=== PATIENT | male | born 1955 | race Hispanic/Latino ===

== ENCOUNTER 2018-03-31 16:07 | Inpatient (IN) | payer MEDICARE, MEDICAID ==
--- NOTE | 2018-03-31 17:29 | RAD ---
Date of service: 03/31/2018 HISTORY: chest pain COMPARISON: Chest radiograph dated 06/22/2015. FINDINGS: LUNGS: No active pulmonary disease. PLEURA: No significant pleural effusion identified, no pneumothorax apparent. CARDIOVASCULAR: Normal. OSSEOUS STRUCTURES: Unchanged. VISUALIZED UPPER ABDOMEN: Normal. OTHER FINDINGS: None. IMPRESSION: No active disease.
--- NOTE | 2018-03-31 17:32 | ED PDOC ---
HPI: Chest Pain Time Seen by Provider: 03/31/18 16:15 Chief Complaint (Nursing): Chest Pain Chief Complaint (Provider): Chest pain History Per: Patient History/Exam Limitations: no limitations Onset/Duration Of Symptoms: Days (1) Current Symptoms Are (Timing): Still Present Additional History Per: Patient Additional Complaint(s): 62yo male, with history of parkinsons disease, hypertnesion, diabetes, comes to ER with complaints of chest pain since last night. Patient denies any associated fever, chills, shortness of breath or vomiting. He is requesting to be admitted into the hospital. Otherwise, he offers no other medical complaints. PMD: Dr. Bond Past Medical History Reviewed: Historical Data, Nursing Documentation, Vital Signs Vital Signs: Last Vital Signs Temp 97.4 F L 04/09/18 15:43 Pulse 69 04/09/18 15:43 Resp 20 04/09/18 15:43 BP 142/85 04/09/18 15:43 Pulse Ox 100 04/09/18 15:43 - Medical History PMH: Asthma, Dementia, Depression, Diabetes, GERD, HTN, Hypercholesterolemia, Parkinson's Disease - Surgical History Surgical History: No Surg Hx - Family History Family History: States: Unknown Family Hx - Living Arrangements Living Arrangements: Prison/Assist Lvng - Home Medications Home Medications: Ambulatory Orders Medication Instructions Recorded Acetaminophen [Tylenol 325mg tab] 650 mg PO Q6 PRN 03/31/18 Acetaminophen [Tylenol 325mg tab] 650 mg PO Q6 PRN 03/31/18 Carbidopa/Levodopa 2 tab PO Q6 03/31/18 [Carbidopa-Levodopa 25-100 Tab] Carvedilol [Coreg] 12.5 mg PO Q12 03/31/18 DULoxetine [Cymbalta] 60 mg PO HS 03/31/18 Dicyclomine [Bentyl] 10 mg PO Q6 PRN 03/31/18 Econazole Nitrate 1 appl TOP QPM 03/31/18 Ferrous Sulfate 325 mg PO QPM 03/31/18 Gabapentin [Neurontin] 100 mg PO Q8 03/31/18 Insulin Glargine, Recombina 26 unit SC HS 03/31/18 [Lantus] Insulin Lispro [Humalog (Insulin 2 - 10 unit SC [facility] 03/31/18 Lispro)] Lactulose [Generlac] 30 ml PO BID 03/31/18 Lactulose [Generlac] 30 ml PO DAILY PRN 03/31/18 Linaclotide [Linzess] 290 mcg PO DAILY 03/31/18 Lisinopril [Zestril] 20 mg PO DAILY 03/31/18 Magnesium Hydroxide [Milk Of 30 ml PO Q72H PRN 03/31/18 Magnesia] Pantoprazole [Protonix EC Tab] 20 mg PO DAILY 03/31/18 Simvastatin 10 mg PO HS 03/31/18 cloNIDine [Catapres] 0.2 mg PO HS 03/31/18 levETIRAcetam [Keppra] 500 mg PO Q12 03/31/18 - Allergies Allergies/Adverse Reactions: Allergies Allergy/AdvReac Type Severity Reaction Status Date / Time No Known Allergies Allergy Verified 04/04/18 10:32 Review of Systems ROS Statement: Except As Marked, All Systems Reviewed And Found Negative Constitutional: Negative for: Fever, Chills Cardiovascular: Positive for: Chest Pain Respiratory: Negative for: Cough, Shortness of Breath Gastrointestinal: Negative for: Vomiting Physical Exam - Reviewed Nursing Documentation Reviewed: Yes Vital Signs Reviewed: Yes - Physical Exam Appears: Positive for: Non-toxic, No Acute Distress Head Exam: Positive for: ATRAUMATIC, NORMAL INSPECTION, NORMOCEPHALIC Skin: Positive for: Normal Color Eye Exam: Positive for: Normal appearance Neck: Positive for: Supple Cardiovascular/Chest: Positive for: Regular Rate, Rhythm, Chest Non Tender. Negative for: Murmur Respiratory: Positive for: Normal Breath Sounds. Negative for: Rales, Rhonchi, Wheezing Gastrointestinal/Abdominal: Positive for: Normal Exam, Soft. Negative for: Tenderness Back: Positive for: Normal Inspection Extremity: Positive for: Normal ROM. Negative for: Deformity Neurologic/Psych: Positive for: Alert, Oriented - Laboratory Results Result Diagrams: 04/08/18 04:20 04/09/18 09:40 - ECG ECG: Positive for: Interpreted By Me, Viewed By Me ECG Rhythm: Positive for: Sinus Rhythm, Right Bundle Branch Block (incomplete) Rate: 86 O2 Sat by Pulse Oximetry: 99 (O2 via NC) Pulse Ox Interpretation: Normal Medical Decision Making Medical Decision Making: Impression: Chest pain rule out cardiac arrythmia Plan: -- Labs -- EKG -- Chest x-ray Time: 1600 Patient noted to have elevated blood pressure of 190/101 and accucheck showed blood sugar > 400. Patient given Human insulin 10 units, labetalol and IV Fluids. Time: 172 Chest x-ray FINDINGS: LUNGS: No active pulmonary disease. PLEURA: No significant pleural effusion identified, no pneumothorax apparent. CARDIOVASCULAR: Normal. OSSEOUS STRUCTURES: Unchanged. VISUALIZED UPPER ABDOMEN: Normal. OTHER FINDINGS: None. IMPRESSION: No active disease. Time: 1913 Patient signed out to Dr. Atkins pending chemistry, reassessment. Scribe Attestation: Documented by Thelma Rendon, acting as a scribe for Da Vargas MD Provider Scribe Attestation: All medical record entries made by the Scribe were at my direction and personally dictated by me. I have reviewed the chart and agree that the record accurately reflects my personal performance of the history, physical exam, medical decision making, and the department course for this patient. I have also personally directed, reviewed, and agree with the discharge instructions and disposition. Disposition - Clinical Impression Clinical Impression: Chest pain, Hyperglycemia - Patient ED Disposition Is Patient to be Admitted: Transfer of Care Counseled Patient/Family Regarding: Studies Performed, Diagnosis - Disposition Disposition: Transfer of Care Disposition Time: 18:50 Condition: STABLE Patient Signed Over To: Checo Atkins Handoff Comments: Pending labs, reassessment
[2018-03-31] MEDS ORDERED: Sodium Chloride 0.9% 1,000 ML IV STA (17:59)
[2018-03-31] MEDS ORDERED: Insulin Regular 100 units/ml SC STA (18:00)
[2018-03-31] MEDS ORDERED: Labetalol 5 mg/ml Inj 20ML IVP STA (18:19)
[2018-03-31 18:31] LABS: BASO % 0.3 % (0.0-2.0); EOS # 0.1 K/uL (0.0-0.7); EOS % 2.2 % (0.0-4.0); HEMOGLOBIN 11.9 g/dL (12.0-18.0); LYMPH # 0.5 K/uL (1.0-4.3); LYMPH % 11.6 % (20.0-40.0); MEAN CELL VOLUME 94.9 fl (80.0-94.0); MEAN CORPUSCULAR HEMOGLOBIN 30.9 pg (27.0-31.0); MEAN CORPUSCULAR HGB CONC 32.6 g/dL (33.0-37.0); MEAN PLATELET VOLUME 10.4 fl (7.2-11.7); MONO # 0.3 K/uL (0.0-0.8); MONO % 7.7 % (0.0-10.0); NEUT # 3.4 K/uL (1.8-7.0); NEUT % 78.2 % (50.0-75.0); RBC 3.86 Mil/uL (4.40-5.90); RED CELL DISTRIBUTION WIDTH 14.5 % (11.5-14.5); WHITE BLOOD COUNT 4.4 K/uL (4.8-10.8)
[2018-03-31 18:51] LABS: TROPONIN I 0.014 ng/mL (0.00-0.120)
[2018-03-31 19:21] LABS: ALB/GLOB RATIO 1.1 (1.0-2.1); ALBUMIN 3.4 g/dL (3.5-5.0); CALCIUM 9.1 mg/dL (8.4-10.2)
--- NOTE | 2018-03-31 19:22 | ED PDOC ---
- Laboratory Results Result Diagrams: 04/01/18 08:27 04/01/18 08:27 - ECG O2 Sat by Pulse Oximetry: 99 (O2 via NC) Pulse Ox Interpretation: Normal Medical Decision Making Medical Decision Making: Time: 1899 Patient signed out to me by Dr. Vargas pending chemistry results, reassessment. Time: [address] Bond, patient to be admitted under his service for observation due to chest pain. Scribe Attestation: Documented by Thelma Rendon, acting as a scribe for Checo Atkins MD. Provider Scribe Attestation: All medical record entries made by the Scribe were at my direction and personally dictated by me. I have reviewed the chart and agree that the record accurately reflects my personal performance of the history, physical exam, medical decision making, and the department course for this patient. I have also personally directed, reviewed, and agree with the discharge instructions and disposition. Disposition - Clinical Impression Clinical Impression: Chest pain, Hyperglycemia - POA Present On Arrival: None - Disposition Disposition: Hospitalized as Observation Patient Disposition Time: 20:00 Condition: STABLE
[2018-03-31] MEDS ORDERED: Glucagon Recombinant 1 mg Inj IM PRN (23:43)
[2018-03-31] MEDS ORDERED: Alum-Mag Hydrox-Simethicone Susp (30 mL) PO ONE (23:45)
[2018-04-01] MEDS: Sodium Chloride 0.45% 1,000 ML IV SCH ×2 (00:43→19:50)
--- NOTE | 2018-04-01 07:57 | CP.PCM.CON ---
History of Present Illness - History of Present Illness History of Present Illness: Consultation for evaluation of chest pain HPI: Review of Systems - Review of Systems Systems not reviewed;Unavailable: Acuity of Condition - Constitutional Constitutional: As Per HPI - EENT Eyes: As Per HPI Ears: As Per HPI Nose/Mouth/Throat: As Per HPI - Cardiovascular Cardiovascular: As Per HPI - Respiratory Respiratory: As Per HPI - Gastrointestinal Gastrointestinal: As Per HPI - Genitourinary Genitourinary: As Per HPI - Reproductive: Male Reproductive:Male: As Per HPI - Musculoskeletal Musculoskeletal: As Per HPI - Integumentary Integumentary: As Per HPI - Neurological Neurological: As Per HPI - Psychiatric Psychiatric: As Per HPI - Endocrine Endocrine: As Per HPI - Hematologic/Lymphatic Hematologic: As Per HPI Past Patient History - Infectious Disease Hx of Infectious Diseases: None - Past Medical History & Family History Past Medical History?: Yes - Past Social History Smoking Status: Former Smoker - CARDIAC Hx Hypercholesterolemia: Yes Hx Hypertension: Yes - PULMONARY Hx Asthma: Yes - NEUROLOGICAL Hx Dementia: Yes Hx Parkinson's Disease: Yes - HEENT Hx HEENT Problems: No - RENAL Hx Renal Failure: Yes - ENDOCRINE/METABOLIC Hx Endocrine Disorders: Yes Hx Diabetes Mellitus Type 1: Yes - HEMATOLOGICAL/ONCOLOGICAL Hx Blood Disorders: No - INTEGUMENTARY Hx Dermatological Problems: No - MUSCULOSKELETAL/RHEUMATOLOGICAL Hx Musculoskeletal Disorders: No Hx Falls: No - GASTROINTESTINAL Hx Gastrointestinal Disorders: Yes Hx Clostridium Difficile: Yes - PSYCHIATRIC Hx Depression: Yes - SURGICAL HISTORY Hx Surgeries: No - ANESTHESIA Hx Anesthesia: No Meds Allergies/Adverse Reactions: Allergies Allergy/AdvReac Type Severity Reaction Status Date / Time No Known Allergies Allergy Verified 06/22/15 16:49 - Medications Medications: Current Medications Carvedilol (Coreg) 12.5 mg PO Q12 TREVOR Dextrose (Dextrose 50% Inj) 0 ml IV STAT PRN; Protocol PRN Reason: Hypoglycemia Protocol Dextrose (Glutose 15) 0 gm PO ONCE PRN; Protocol PRN Reason: Hypoglycemia Protocol Dicyclomine HCl (Bentyl) 20 mg PO ONCE ONE Stop: 04/01/18 23:47 Glucagon (Glucagen Diagnostic Kit) 0 mg IM STAT PRN; Protocol PRN Reason: Hypoglycemia Protocol Sodium Chloride (Sodium Chloride 0.45%) 1,000 mls @ 50 mls/hr IV .Q20H TREVOR Stop: 04/01/18 23:46 Last Admin: 04/01/18 00:43 Dose: 50 mls/hr Insulin Human Regular (Humulin R) 0 units SC ACHS TREVOR PRN Reason: Protocol Lisinopril (Zestril) 20 mg PO DAILY TREVOR Physical Exam - Constitutional Appears: Well - Head Exam Head Exam: ATRAUMATIC, NORMAL INSPECTION, NORMOCEPHALIC - Eye Exam Eye Exam: EOMI, Normal appearance, PERRL Pupil Exam: NORMAL ACCOMODATION, PERRL - ENT Exam ENT Exam: Mucous Membranes Moist, Normal Exam - Neck Exam Neck exam: Positive for: Normal Inspection - Respiratory Exam Respiratory Exam: Clear to Auscultation Bilateral, NORMAL BREATHING PATTERN - Cardiovascular Exam Cardiovascular Exam: REGULAR RHYTHM - GI/Abdominal Exam GI & Abdominal Exam: Normal Bowel Sounds, Soft. absent: Tenderness - Extremities Exam Extremities exam: Positive for: normal inspection - Back Exam Back exam: NORMAL INSPECTION - Neurological Exam Neurological exam: Alert, CN II-XII Intact, Normal Gait, Oriented x3, Reflexes Normal - Psychiatric Exam Psychiatric exam: Normal Affect, Normal Mood - Skin Skin Exam: Dry, Intact, Normal Color, Warm Results - Vital Signs Recent Vital Signs: Last Vital Signs Temp 98.4 F 04/01/18 04:45 Pulse 88 04/01/18 04:45 Resp 16 04/01/18 04:45 BP 166/94 H 04/01/18 04:45 Pulse Ox 99 04/01/18 04:45 - Labs Result Diagrams: 03/31/18 18:05 03/31/18 18:05 Labs: Laboratory Results - last 24 hr 03/31/18 03/31/18 04/01/18 18:05 18:05 00:30 WBC 4.4 L RBC 3.86 L Hgb 11.9 L Hct 36.6 MCV 94.9 H D MCH 30.9 MCHC 32.6 L RDW 14.5 Plt Count 133 MPV 10.4 Neut % (Auto) 78.2 H Lymph % (Auto) 11.6 L [place] % (Auto) 7.7 Eos % (Auto) 2.2 Baso % (Auto) 0.3 Neut # (Auto) 3.4 Lymph # (Auto) 0.5 L [place] # (Auto) 0.3 Eos # (Auto) 0.1 Baso # (Auto) 0.0 Sodium 136 Potassium 4.7 Chloride 99 Carbon Dioxide 27 Anion Gap 15 BUN 20 Creatinine 1.7 H Est GFR ( Amer) 50 Est GFR (Non-Af Amer) 41 POC Glucose (mg/dL) 324 H Random Glucose 471 H* Calcium 9.1 Total Bilirubin 0.6 AST 17 ALT 15 L D Alkaline Phosphatase 84 Troponin I 0.0140 Total Protein 6.5 Albumin 3.4 L D Globulin 3.1 Albumin/Globulin Ratio 1.1 Assessment & Plan (1) Chest pain Status: Acute
[2018-04-01 08:53] LABS: HEMOGLOBIN 12.1 g/dL (12.0-18.0); MEAN CELL VOLUME 94.5 fl (80.0-94.0); MEAN CORPUSCULAR HEMOGLOBIN 31.3 pg (27.0-31.0); MEAN CORPUSCULAR HGB CONC 33.1 g/dL (33.0-37.0); RBC 3.86 Mil/uL (4.40-5.90); RED CELL DISTRIBUTION WIDTH 14.6 % (11.5-14.5); WHITE BLOOD COUNT 5.2 K/uL (4.8-10.8)
[2018-04-01 08:57] LABS: PARTIAL THROMBOPLASTIN TIME 33.6 Seconds (25.6-37.1); PROTHROMBIN TIME 11.4 Seconds (9.8-13.1)
[2018-04-01 09:10] LABS: ALBUMIN 3.3 g/dL (3.5-5.0); CALCIUM 9.2 mg/dL (8.4-10.2)
[2018-04-01 09:15] LABS: TROPONIN I 0.019 ng/mL (0.00-0.120)
[2018-04-01] MEDS ORDERED: Insulin Regular 100 units/ml ONE (09:18)
[2018-04-01] MEDS: Insulin Regular 100 units/ml SC SCH ×4 (10:23→22:53)
--- NOTE | 2018-04-01 11:51 | CARD ---
APPROVED REPORT Date of service: 04/01/2018 EXAM: Two-dimensional and M-mode echocardiogram with Doppler and color Doppler. Other Information Quality : AverageRhythm : NSR Technically limited study due to lIMITED wINDOW INDICATION Chest Pain 2D DIMENSIONS IVSd0.97 (0.7-1.1cm)LVDd4.90 (3.9-5.9cm) LVOT Diameter2.35 (1.8-2.4cm)PWd1.05 (0.7-1.1cm) IVSs1.26 (0.8-1.2cm)LVDs3.71 (2.5-4.0cm) FS (%) 24.2 %PWs1.07 (0.8-1.2cm) M-Mode DIMENSIONS Left Atrium (MM)3.90 (2.5-4.0cm)IVSd1.09 (0.7-1.1cm) Aortic Root3.44 (2.2-3.7cm)LVDd6.52 (4.0-5.6cm) Aortic Cusp Exc.1.99 (1.5-2.0cm)PWd0.99 (0.7-1.1cm) IVSs1.56 cmFS (%) 29 % LVDs4.60 (2.0-3.8cm)PWs1.29 cm Mitral Valve E/A ratio0.0 TDI E/Lateral E'0.0E/Medial E'0.0 LEFT VENTRICLE The left ventricle is normal size. There is mild concentric left ventricular hypertrophy. The left ventricular function is normal. The left ventricular ejection fraction is within the normal range. LVEF65% (NORMAL) There is normal LV segmental wall motion. The left ventricular diastolic function is normal. No left ventricle thrombus noted on this study. There is no ventricular septal defect visualized. There is no left ventricular aneurysm. There is no mass noted in the left ventricle. RIGHT VENTRICLE The right ventricle is normal size. The right ventricle is mildly to moderately hypertrophied. The right ventricular systolic function is normal. ATRIA The left atrium size is normal. The right atrium size is normal. The interatrial septum is intact with no evidence for an atrial septal defect. AORTIC VALVE The aortic valve is normal in structure. No aortic regurgitation is present. There is no aortic valvular stenosis. There is no aortic valvular vegetation. MITRAL VALVE The mitral valve is normal in structure. There is no evidence of mitral valve prolapse. There is no mitral valve stenosis. There is no mitral valve regurgitation noted. TRICUSPID VALVE The tricuspid valve is normal in structure. There is trace to mild tricuspid regurgitation. There is no tricuspid valve prolapse or vegetation. There is no tricuspid valve stenosis. PULMONIC VALVE The pulmonary valve is normal in structure. There is no pulmonic valvular regurgitation. There is no pulmonic valvular stenosis. GREAT VESSELS The aortic root is normal in size. The IVC is normal in size and collapses >50% with inspiration. PERICARDIAL EFFUSION The pericardium appears normal. <Conclusion> The left ventricle is normal size. There is mild concentric left ventricular hypertrophy. The left ventricular function is normal. The left ventricular ejection fraction is within the normal range. LVEF65% (NORMAL) The right ventricle is mildly to moderately hypertrophied. The right ventricle is normal size.
[2018-04-01 15:41] LABS: SQUAMOUS EPITHIAL 2 /hpf (0-5); URINE BACTERIA MOD (<OCC); URINE BILIRUBIN NEGATIVE (NEGATIVE); URINE BLOOD SMALL (NEGATIVE); URINE CLARITY CLOUDY (Clear); URINE COLOR YELLOW (YELLOW); URINE GLUCOSE (UA) >=500 mg/dL (Normal); URINE LEUKOCYTE ESTERASE MOD Leu/uL (Negative); URINE PROTEIN >=500 mg/dL (NEGATIVE); URINE UROBILINOGEN 0.2-1.0 mg/dL (0.2-1.0)
[2018-04-02] MEDS: Insulin Regular 100 units/ml SC SCH ×4 (09:55→21:28)
[2018-04-02] MEDS ORDERED: Magnesium Hydroxide Susp 30 ml UD PO PRN (11:57)
[2018-04-02] MEDS ORDERED: Metoprolol 1 mg/ml Inj IVP STA (13:04)
[2018-04-02] MEDS ORDERED: Enoxaparin 30 mg Syringe SC SCH (13:15)
--- NOTE | 2018-04-02 13:19 | PCM.RRT ---
<Zach Zazueta - Last Filed: 04/02/18 13:47> REFINERY SUPERINTENDENT Nurse Assessment - Situation REFINERY SUPERINTENDENT Reason for Call: Chest Pain - IV IV Inserted during REFINERY SUPERINTENDENT?: No - Respiratory Oxygen Delivery Method: Nasal Cannula I.Reason for REFINERY SUPERINTENDENT - A) Acute Change in Patient: (Select all that apply): Staff member or family is worried about patient, Chest Pain Subjective: 62 Y/O male with PMHx of HTN, DM, hyperlipidemia, parkinson disease complaining of chest pain. REFINERY SUPERINTENDENT called. Vitals on arrival T 97.9, Pulse 82, BP 184/99, RR 18 , SpO2 100. Patient alert, responsive and pointing out to mid-sternal area for chest pain. Troponin, D Dimer, ABG and EKG ordered STAT. EKG showed t wave changes in V2, but no acute ST abnormality(compared with previous EKG). Patient given o2 via nasal cannula, ASA 81 chewable, Nitroglycerin 0.4 mg SL, Plavix 75 , metoprlol 5 mg IV stat, Atorvastatin 40 mg stat and started on lovenox 30 mg SC. Blood pressure improved to 160/90 with medications. Tried to call Dr. Melchor. Primary car seat coverer Dr. Del Rio consult onboard. Patient history reviewed. Previous Echo, labs reviewed. Patient to remain in Tele for monitoring. - Neurological Status (Select all that apply): Alert, Responsive, Oriented, Verbal, Weakness - Respiratory Oxygen Delivery Method: Nasal Cannula @L/min - Constitutional Appears: Well, Non-toxic, No Acute Distress - Head Head Exam: ATRAUMATIC, NORMAL INSPECTION, NORMOCEPHALIC - Eyes Eye Exam: EOMI, Normal appearance, PERRL - Respiratory Exam Respiratory Exam: Clear to Ausculation Bilateral, NORMAL BREATHING PATTERN. absent: Rales, Rhonchi, Wheezes, Respiratory Distress - Cardiovascular Exam Cardiovascular Exam: REGULAR RHYTHM, +S1, +S2. absent: Murmur - GI/Abdominal Exam GI & Abdominal Exam: Soft, Normal Bowel Sounds - Neurological Exam Neurological Exam: Alert, Awake Plan - Assessment of Findings&Treatment Plan 62 Y/O male with PMHx of HTN, DM, hyperlipidemia, parkinson disease complaining of chest pain. - Stat ASA 81 mg chewable, - Nitroglycerin 0.4 SL, - Plavix 75 mg IV, - Metoprlol 5 mg IV, - Atorvastatin 40 mg stat - Started on lovenox 30 mg SC - Improvement in BP to 160/90 - F/U Troponin x 1, D Dimer, ABG - Delivery Motorcycle Driver and fresh foods cake decorator called, but unable to contact at this time, will call again. - Continue to be in Tele for monitoring - Will monitor for acute changes <Lydia Gamble - Last Filed: 04/02/18 18:37> REFINERY SUPERINTENDENT Nurse Assessment - Vital Signs Vital Signs: Rapid Response Vital Sign Blood Pressure 169/99 Pulse Rate 89 Respiratory Rate 18 Temperature 97.9 F Oxygen Saturation 100 - Vital Signs at end of REFINERY SUPERINTENDENT Vital Signs at end of REFINERY SUPERINTENDENT: Rapid Response End Vital Sign Blood Pressure 161/90 Pulse Rate 89 Respiratory Rate 18 Temperature 97.8 F O2 Sat by Pulse Oximetry 100 Attending/Attestation - Attestation I have personally seen and examined this patient.: Yes I have fully participated in the care of the patient.: Yes I have reviewed all pertinent clinical information, including history, physical exam and plan: Yes Notes (Text): 1. Chest Pain r/o ACS 2. Uncontrolled HTN - Stat ASA, Plavix, given - increase Coreg to 25 mg bid - cont statin - NTG - Trop x 3, DDimer -start Lovenox for DVT proph - ABG Discussed case with Cardio - Dr Del Rio and pt's PMD Dr Melchor
[2018-04-02 13:29] LABS: ABG ALLEN TEST YES; ARTERIAL BLOOD GAS HCO3 24.9 mmol/L (21-28); ARTERIAL BLOOD GAS HEMOGLOBIN 13.1 g/dL (11.7-17.4); ARTERIAL BLOOD GAS O2 CONTENT 17.9 ML/dL (15-23); ARTERIAL BLOOD GAS O2 SAT 99.5 % (95-98); ARTERIAL BLOOD GAS PCO2 40 mm/Hg (35-45); ARTERIAL BLOOD GAS PO2 152 mm/Hg (80-100)
[2018-04-02] MEDS: Pantoprazole 20 mg EC Tab PO SCH (13:29)
--- NOTE | 2018-04-02 15:24 | CARD ---
APPROVED REPORT Date of service: 04/02/2018 EKG Measurement Heart [id number] <Conclusion> Normal sinus rhythm Left anterior fascicular block Septal infarct, age undetermined Abnormal ECG
[2018-04-02] MEDS: Alum-Mag Hydrox-Simethicone Susp (30 mL) PO PRN (15:45)
--- NOTE | 2018-04-02 17:14 | CP.PCM.HP ---
History of Present Illness - History of Present Illness History of Present Illness: CC: CP. 62 y/o M with multiple chronic medical conditions including: Asthma, HTN, Renal failure, Parkinson, resident at [facility], brought to ER [facility], via EMS for evaluation of Chest pain that began night [employer], increased 1 hr prior arrival to ER with no relief. Pt was c/o of Midsternal CP, pressure type, intermittent pain, moderate intensity 5:10, non radiated, associated to moderate SOB. Pt on Telemetry had SLEEVE FIXER for Chest Pain, Epigastric pain, discussed with Dr Gamble Worsening symptoms: Found with BS 487, BP 190/101. Aggravated factor: Movements/Exercise. No: Fever, chills, n/v/d, abdominal pain, syncope, fall, headache, sick contact. Echo showed: LVEF 65%, mild R-L ventricular hypertrophy, otherwise unremarkable. CXR: No active disease. Present on Admission - Present on Admission Any Indicators Present on Admission: Yes History of Uncontrolled Diabetes: Yes Review of Systems - Constitutional Constitutional: Other (negative) - EENT Eyes: Other (negative) Ears: Other (negative) Nose/Mouth/Throat: Other (negative) - Cardiovascular Cardiovascular: Chest Pain, Dyspnea - Respiratory Respiratory: Dyspnea - Gastrointestinal Gastrointestinal: Other (negative) - Genitourinary Genitourinary: Other (negative) - Musculoskeletal Musculoskeletal: Other (negative) - Integumentary Integumentary: Other (negative) - Neurological Neurological: Weakness, Other (Disoriented at times.) - Psychiatric Psychiatric: Anxiety, Depression - Endocrine Endocrine: Other (negative) - Hematologic/Lymphatic Hematologic: Other (negative) Past Patient History - Infectious Disease Hx of Infectious Diseases: None - Past Medical History & Family History Past Medical History?: Yes Pertinent Family History: Unknown - Past Social History Smoking Status: Unknown If Ever Smoked Alcohol: None Drugs: Denies Home Situation {Lives}: Custodial - CARDIAC Hx Cardiac Disorders: Yes Hx Hypercholesterolemia: Yes Hx Hypertension: Yes - PULMONARY Hx Respiratory Disorders: Yes Hx Asthma: Yes - NEUROLOGICAL Hx Neurological Disorder: Yes Hx Dementia: Yes Hx Parkinson's Disease: Yes Hx Seizures: Yes - HEENT Hx HEENT Problems: No - RENAL Hx Chronic Kidney Disease: Yes Hx Renal Failure: Yes - ENDOCRINE/METABOLIC Hx Endocrine Disorders: Yes Hx Diabetes Mellitus Type 1: Yes - HEMATOLOGICAL/ONCOLOGICAL Hx Blood Disorders: No - INTEGUMENTARY Hx Dermatological Problems: No - MUSCULOSKELETAL/RHEUMATOLOGICAL Hx Musculoskeletal Disorders: No Hx Falls: No - GASTROINTESTINAL Hx Gastrointestinal Disorders: Yes Hx Clostridium Difficile: Yes - GENITOURINARY/GYNECOLOGICAL Hx Genitourinary Disorders: No - PSYCHIATRIC Hx Psychophysiologic Disorder: Yes Hx Depression: Yes Hx Substance Use: No - SURGICAL HISTORY Hx Surgeries: No - ANESTHESIA Hx Anesthesia: No Meds Allergies/Adverse Reactions: Allergies Allergy/AdvReac Type Severity Reaction Status Date / Time No Known Allergies Allergy Verified 04/04/18 10:32 Physical Exam - Constitutional Appears: No Acute Distress - Head Exam Head Exam: NORMAL INSPECTION - Eye Exam Eye Exam: EOMI, PERRL - ENT Exam ENT Exam: Normal Exam - Neck Exam Neck exam: Positive for: Normal Inspection - Respiratory Exam Respiratory Exam: Clear to Auscultation Bilateral - Cardiovascular Exam Cardiovascular Exam: REGULAR RHYTHM - GI/Abdominal Exam GI & Abdominal Exam: Normal Bowel Sounds, Soft - Extremities Exam Extremities exam: Positive for: normal inspection - Back Exam Back exam: NORMAL INSPECTION - Neurological Exam Neurological exam: Alert Additional comments: slow mentation, forgetful cogwheel rigidity - Psychiatric Exam Psychiatric exam: Anxious, Depressed - Skin Skin Exam: Warm Results - Vital Signs Recent Vital Signs: Last Vital Signs Temp 99.7 F H 04/02/18 16:29 Pulse 85 04/02/18 16:29 Resp 20 04/02/18 16:29 BP 119/74 04/02/18 16:29 Pulse Ox 100 04/02/18 16:29 reviewed J.PDillan - Labs Result Diagrams: 04/03/18 05:30 04/03/18 05:30 Labs: Laboratory Results - last 24 hr 04/01/18 04/02/18 04/02/18 22:51 05:39 11:16 D-Dimer, Quantitative pCO2 pO2 HCO3 ABG pH ABG Total CO2 ABG O2 Saturation ABG O2 Content ABG Base Excess ABG Hemoglobin ABG Carboxyhemoglobin POC ABG HHb (Measured) ABG Methemoglobin ABG O2 Capacity Landon Test A-a O2 Difference Hgb O2 Saturation FiO2 POC Glucose (mg/dL) 147 H 202 H 242 H Troponin I 04/02/18 04/02/18 04/02/18 12:59 13:20 13:23 D-Dimer, Quantitative 299 H pCO2 40 pO2 152 H HCO3 24.9 ABG pH 7.40 ABG Total CO2 26.0 ABG O2 Saturation 99.5 H ABG O2 Content 17.9 ABG Base Excess 0 ABG Hemoglobin 13.1 ABG Carboxyhemoglobin 1.6 H POC ABG HHb (Measured) 0.5 ABG Methemoglobin 2.3 ABG O2 Capacity 18.0 Landon Test Yes A-a O2 Difference 26.0 Hgb O2 Saturation 95.6 FiO2 32.0 POC Glucose (mg/dL) Troponin I 0.0330 reviewed J.P. - Impressions Impression: ECHO: Reviewed J.P. - Imaging and Cardiology Chest x-ray Status: Report reviewed by me ([email or web address]) Assessment & Plan (1) Chest pain Status: Acute Priority: High (2) Hyperglycemia Status: Acute Priority: High (3) DM I (diabetes mellitus, type I) Status: Chronic Priority: High (4) HTN (hypertension) Status: Chronic Priority: High (5) Alzheimer disease Status: Chronic Priority: High (6) Dementia Status: Chronic Priority: Medium (7) Parkinsons Status: Acute (8) Seizure Status: Chronic (9) Anxiety Status: Acute Priority: Medium (10) Depression Status: Chronic Priority: High (11) UTI (urinary tract infection) Status: Acute - Assessment and Plan (Free Text) Plan: U C-S, Continue Rocephin Zestril, Humalin R, Cymbalta, Lovenox, Sinemet and rest of Tx. PT, OT. Cardiology consult appreciated, STT in am, GI consult , epigastric pain SLEEVE FIXER - Date & Time Date: 04/02/18 Time: 13:50
[2018-04-02] MEDS: Enoxaparin 40 mg Syringe SC SCH (18:26)
[2018-04-02] MEDS: Pravastatin Sodium 20 MG TAB PO SCH (21:24)
[2018-04-02] MEDS: Insulin Detemir 100 Units/ml Inj SC SCH (21:29)
[2018-04-03] MEDS ORDERED: Dextrose 50% SYRINGE Inj (50 ml) ONE (05:40)
[2018-04-03] MEDS: Dextrose 50% SYRINGE Inj (50 ml) IV PRN (05:50)
[2018-04-03 06:14] LABS: HEMOGLOBIN 10.6 g/dL (12.0-18.0); MEAN CELL VOLUME 93.9 fl (80.0-94.0); MEAN CORPUSCULAR HEMOGLOBIN 30.9 pg (27.0-31.0); MEAN CORPUSCULAR HGB CONC 32.9 g/dL (33.0-37.0); RBC 3.42 Mil/uL (4.40-5.90); RED CELL DISTRIBUTION WIDTH 14.9 % (11.5-14.5); WHITE BLOOD COUNT 4.8 K/uL (4.8-10.8)
[2018-04-03 06:49] LABS: CALCIUM 9.3 mg/dL (8.4-10.2)
[2018-04-03] MEDS: Insulin Regular 100 units/ml SC SCH ×4 (06:49→21:28)
--- NOTE | 2018-04-03 08:16 | CP.PCM.CON ---
History of Present Illness - History of Present Illness History of Present Illness: PGY5 GI Initial Consult Chapo Conde is a 62M w/ hx of parkinsons, HTN, HL who presented to the ED from [place] w/ complaints of chest pain. Pt states that the onset was sudden and started a few days ago. Though pt was alert and oriented x3, he was slightly confused so obtaining hx was difficult. Pt states that his pain was located on the left side of his chest and radiated to his left arm and jaw. He had an [employer] yesterday for chest pain. At that time, EKG, troponins and other cardiac work- up was performed. He was later given maalox and his pain improved. Upon further questioning from the [employer] team, he noted epigastric pain. At this time, he denies any abd pain or any hx of it. He states that his last BM was more than 3 days ago. Denies any hx of constipation. Denies any NSAID use, nausea, vomiting ot diarrhea. Pt notes an EGD and colonoscopy < 5 years ago, but does not recall any findings. Pmhx: Asthma, HTN, Renal failure, Parkinson PMShx: denies Social hx: Previous smoker 2-3 packs a day for 20+ years, quit >5 years ago, denies ETOH or illicit drug use Family hx: brother colon cancer ROS: 12 point OS conducted neg other than above Past Patient History - Infectious Disease Hx of Infectious Diseases: None - Past Medical History & Family History Past Medical History?: Yes - Past Social History Smoking Status: Unknown If Ever Smoked Alcohol: None Drugs: Denies Home Situation {Lives}: Longterm - CARDIAC Hx Cardiac Disorders: Yes Hx Hypercholesterolemia: Yes Hx Hypertension: Yes - PULMONARY Hx Respiratory Disorders: Yes Hx Asthma: Yes - NEUROLOGICAL Hx Neurological Disorder: Yes Hx Dementia: Yes Hx Parkinson's Disease: Yes Hx Seizures: Yes - HEENT Hx HEENT Problems: No - RENAL Hx Chronic Kidney Disease: Yes Hx Renal Failure: Yes - ENDOCRINE/METABOLIC Hx Endocrine Disorders: Yes Hx Diabetes Mellitus Type 1: Yes - HEMATOLOGICAL/ONCOLOGICAL Hx Blood Disorders: No - INTEGUMENTARY Hx Dermatological Problems: No - MUSCULOSKELETAL/RHEUMATOLOGICAL Hx Musculoskeletal Disorders: No Hx Falls: No - GASTROINTESTINAL Hx Gastrointestinal Disorders: Yes Hx Clostridium Difficile: Yes - GENITOURINARY/GYNECOLOGICAL Hx Genitourinary Disorders: No - PSYCHIATRIC Hx Psychophysiologic Disorder: Yes Hx Depression: Yes Hx Substance Use: No - SURGICAL HISTORY Hx Surgeries: No - ANESTHESIA Hx Anesthesia: No Meds Allergies/Adverse Reactions: Allergies Allergy/AdvReac Type Severity Reaction Status Date / Time No Known Allergies Allergy Verified 06/22/15 16:49 - Medications Medications: Current Medications Acetaminophen (Tylenol 325mg Tab) 650 mg PO Q6 PRN PRN Reason: Temp above 101 Acetaminophen (Tylenol 325mg Tab) 650 mg PO Q6 PRN PRN Reason: Pain, Mild (1-3) Al Hydrox/Mg Hydrox/Simethicone (Maalox Plus 30 Ml) 30 ml PO Q4 PRN PRN Reason: Indigestion / Heartburn Last Admin: 04/02/18 15:45 Dose: 30 ml Carbidopa/Levodopa (Sinemet) 2 tab PO Q6 [facility] Last Admin: 04/03/18 04:35 Dose: Not Given Carvedilol (Coreg) 25 mg PO Q12 [facility] Last Admin: 04/02/18 21:23 Dose: 25 mg Clonidine HCl (Catapres) 0.2 mg PO HS [facility] Last Admin: 04/02/18 21:24 Dose: 0.2 mg Dextrose (Dextrose 50% Inj) 0 ml IV STAT PRN; Protocol PRN Reason: Hypoglycemia Protocol Last Admin: 04/03/18 05:50 Dose: 50 ml Dextrose (Glutose 15) 0 gm PO ONCE PRN; Protocol PRN Reason: Hypoglycemia Protocol Dicyclomine HCl (Bentyl) 10 mg PO Q4 PRN PRN Reason: abdominal discomfort Last Admin: 04/02/18 15:45 Dose: 10 mg Duloxetine HCl (Cymbalta) 60 mg PO HS [facility] Last Admin: 04/02/18 21:24 Dose: 60 mg Enoxaparin Sodium (Lovenox) 40 mg SC DAILY [facility] Last Admin: 04/02/18 18:26 Dose: 40 mg Ferrous Sulfate (Feosol) 325 mg PO QPM [facility] Last Admin: 04/02/18 18:52 Dose: 325 mg Gabapentin (Neurontin) 100 mg PO Q8 [facility] Last Admin: 04/03/18 01:49 Dose: Not Given Glucagon (Glucagen Diagnostic Kit) 0 mg IM STAT PRN; Protocol PRN Reason: Hypoglycemia Protocol Ceftriaxone Sodium 1 gm/ (Sodium Chloride) 100 mls @ 100 mls/hr IVPB DAILY [facility] PRN Reason: Protocol Last Admin: 04/02/18 13:29 Dose: 100 mls/hr Insulin Detemir (Levemir) 26 units SC HS [facility] Last Admin: 04/02/18 21:29 Dose: 26 units Insulin Human Regular (Humulin R) 0 units SC [facility] PRN Reason: Protocol Last Admin: 04/03/18 06:49 Dose: Not Given Levetiracetam (Keppra) 500 mg PO Q12 [facility] Last Admin: 04/02/18 21:23 Dose: 500 mg Lisinopril (Zestril) 20 mg PO DAILY [facility] Last Admin: 04/02/18 09:54 Dose: 20 mg Magnesium Hydroxide (Milk Of Magnesia) 30 ml PO Q72H PRN PRN Reason: Constipation Pantoprazole Sodium (Protonix Ec Tab) 20 mg PO DAILY [facility] Last Admin: 04/02/18 13:29 Dose: 20 mg Pravastatin Sodium (Pravachol) [address] [facility] Last Admin: 04/02/18 21:24 Dose: 20 mg Physical Exam - Constitutional Appears: Well, No Acute Distress, Chronically Ill - Head Exam Head Exam: ATRAUMATIC, NORMOCEPHALIC - Eye Exam Eye Exam: Normal appearance - ENT Exam ENT Exam: Mucous Membranes Moist - Neck Exam Neck exam: Positive for: Normal Inspection - Respiratory Exam Respiratory Exam: Clear to Auscultation Bilateral, NORMAL BREATHING PATTERN. absent: Rales, Rhonchi, Wheezes, Respiratory Distress - Cardiovascular Exam Cardiovascular Exam: REGULAR RHYTHM, +S1, +S2 - GI/Abdominal Exam GI & Abdominal Exam: Normal Bowel Sounds, Organomegaly, Rigid, Soft, Tenderness - Extremities Exam Extremities exam: Negative for: joint swelling, pedal edema - Back Exam Back exam: NORMAL INSPECTION - Neurological Exam Neurological exam: Alert, Oriented x3 - Psychiatric Exam Psychiatric exam: Normal Affect, Normal Mood - Skin Skin Exam: Dry, Intact, Normal Color, Warm Results - Vital Signs Recent Vital Signs: Last Vital Signs Temp 97.4 F L 04/03/18 05:03 Pulse 58 L 04/03/18 05:03 Resp 18 04/03/18 05:03 BP 108/62 04/03/18 05:03 Pulse Ox 97 04/03/18 05:03 - Labs Result Diagrams: 04/03/18 05:30 07/26/18 05:30 Labs: Laboratory Results - last 24 hr 04/02/18 04/02/18 04/02/18 05:39 11:16 12:59 WBC RBC Hgb Hct MCV MCH MCHC RDW Plt Count D-Dimer, Quantitative pCO2 pO2 HCO3 ABG pH ABG Total CO2 ABG O2 Saturation ABG O2 Content ABG Base Excess ABG Hemoglobin ABG Carboxyhemoglobin POC ABG HHb (Measured) ABG Methemoglobin ABG O2 Capacity Landon Test A-a O2 Difference Hgb O2 Saturation FiO2 Sodium Potassium Chloride Carbon Dioxide Anion Gap BUN Creatinine Est GFR ( Amer) Est GFR (Non-Af Amer) POC Glucose (mg/dL) 202 H 242 H Random Glucose Calcium Troponin I 0.0330 04/02/18 04/02/18 04/02/18 13:20 13:23 16:04 WBC RBC Hgb Hct MCV MCH MCHC RDW Plt Count D-Dimer, Quantitative 299 H pCO2 40 pO2 152 H HCO3 24.9 ABG pH 7.40 ABG Total CO2 26.0 ABG O2 Saturation 99.5 H ABG O2 Content 17.9 ABG Base Excess 0 ABG Hemoglobin 13.1 ABG Carboxyhemoglobin 1.6 H POC ABG HHb (Measured) 0.5 ABG Methemoglobin 2.3 ABG O2 Capacity 18.0 Landon Test Yes A-a O2 Difference 26.0 Hgb O2 Saturation 95.6 FiO2 32.0 Sodium Potassium Chloride Carbon Dioxide Anion Gap BUN Creatinine Est GFR ( Amer) Est GFR (Non-Af Amer) POC Glucose (mg/dL) 257 H Random Glucose Calcium Troponin I 04/02/18 04/03/18 04/03/18 21:21 05:30 05:30 WBC 4.8 RBC 3.42 L Hgb 10.6 L Hct 32.1 L MCV 93.9 MCH 30.9 MCHC 32.9 L RDW 14.9 H Plt Count 131 D-Dimer, Quantitative pCO2 pO2 HCO3 ABG pH ABG Total CO2 ABG O2 Saturation ABG O2 Content ABG Base Excess ABG Hemoglobin ABG Carboxyhemoglobin POC ABG HHb (Measured) ABG Methemoglobin ABG O2 Capacity Landon Test A-a O2 Difference Hgb O2 Saturation FiO2 Sodium 138 Potassium 3.8 Chloride 102 Carbon Dioxide 29 Anion Gap 11 BUN 29 H Creatinine 2.3 H Est GFR ( Amer) 35 Est GFR (Non-Af Amer) 29 POC Glucose (mg/dL) 207 H Random Glucose 60 L Calcium 9.3 Troponin I 04/03/18 04/03/18 05:35 06:42 WBC RBC Hgb Hct MCV MCH MCHC RDW Plt Count D-Dimer, Quantitative pCO2 pO2 HCO3 ABG pH ABG Total CO2 ABG O2 Saturation ABG O2 Content ABG Base Excess ABG Hemoglobin ABG Carboxyhemoglobin POC ABG HHb (Measured) ABG Methemoglobin ABG O2 Capacity Landon Test A-a O2 Difference Hgb O2 Saturation FiO2 Sodium Potassium Chloride Carbon Dioxide Anion Gap BUN Creatinine Est GFR ( Amer) Est GFR (Non-Af Amer) POC Glucose (mg/dL) 45 L 168 H Random Glucose Calcium Troponin I Assessment & Plan - Assessment and Plan (Free Text) Assessment: Chapo Conde is a 62M w/ hx of parkinsons, HTN, HL who presented to the ER for chest pain Epigastric pain, etiology unknown, but resolved; DDx: gastritis, PUD, dyspepsia Acute constipation Family hx of colon cancer Chest pain, + stress test Plan: -Prontonix 40mg daily -diet as tolerated -No plan for endoscopy at this time -will add miralax for constipation -would benefit from EGD as an oupt -cardiac work-up in progress, + stress test -no indication to stop antiplatlet therapy, since h/h is stable and + stress test -continue to monitor -can use Maalox PRN for breakthrough symptoms -would benefit from EGD and colonoscopy as an outpt after cardiac w/u D/W Dr. Rojas
[2018-04-03] MEDS ORDERED: Aminophylline 25 mg/ml Inj ONE (09:22)
[2018-04-03] MEDS: Enoxaparin 40 mg Syringe SC SCH (11:34)
[2018-04-03] MEDS: Pantoprazole 20 mg EC Tab PO SCH (11:36)
--- NOTE | 2018-04-03 16:18 | CP.PCM.PN ---
Subjective - Date & Time of Evaluation Date of Evaluation: 04/03/18 Time of Evaluation: 12:30 - Subjective Subjective: F/U Chest pain. returned from STT, now awating for 2nd part of STT, awake , slow mentation , vague answers, no chest pain Objective - Vital Signs/Intake and Output Vital Signs (last 24 hours): Temp Pulse Resp BP Pulse Ox 97.5 F L 59 L 20 104/63 100 04/03/18 15:49 04/03/18 15:49 04/03/18 15:49 04/03/18 15:49 04/03/18 15:49 - Medications Medications: Current Medications Acetaminophen (Tylenol 325mg Tab) 650 mg PO Q6 PRN PRN Reason: Temp above 101 Acetaminophen (Tylenol 325mg Tab) 650 mg PO Q6 PRN PRN Reason: Pain, Mild (1-3) Al Hydrox/Mg Hydrox/Simethicone (Maalox Plus 30 Ml) 30 ml PO Q4 PRN PRN Reason: Indigestion / Heartburn Last Admin: 04/02/18 15:45 Dose: 30 ml Carbidopa/Levodopa (Sinemet) 2 tab PO Q6 [facility] Last Admin: 04/03/18 11:37 Dose: 2 tab Carvedilol (Coreg) 25 mg PO Q12 [facility] Last Admin: 04/03/18 11:33 Dose: Not Given Clonidine HCl (Catapres) 0.2 mg PO HS [facility] Last Admin: 04/02/18 21:24 Dose: 0.2 mg Dextrose (Dextrose 50% Inj) 0 ml IV STAT PRN; Protocol PRN Reason: Hypoglycemia Protocol Last Admin: 04/03/18 05:50 Dose: 50 ml Dextrose (Glutose 15) 0 gm PO ONCE PRN; Protocol PRN Reason: Hypoglycemia Protocol Dicyclomine HCl (Bentyl) 10 mg PO Q4 PRN PRN Reason: abdominal discomfort Last Admin: 04/02/18 15:45 Dose: 10 mg Duloxetine HCl (Cymbalta) 60 mg PO HS [facility] Last Admin: 04/02/18 21:24 Dose: 60 mg Enoxaparin Sodium (Lovenox) 40 mg SC DAILY [facility] Last Admin: 04/03/18 11:34 Dose: 40 mg Ferrous Sulfate (Feosol) 325 mg PO QPM [facility] Last Admin: 04/02/18 18:52 Dose: 325 mg Gabapentin (Neurontin) 100 mg PO Q8 [facility] Last Admin: 04/03/18 11:35 Dose: 100 mg Glucagon (Glucagen Diagnostic Kit) 0 mg IM STAT PRN; Protocol PRN Reason: Hypoglycemia Protocol Ceftriaxone Sodium 1 gm/ (Sodium Chloride) 100 mls @ 100 mls/hr IVPB DAILY [facility] PRN Reason: Protocol Last Admin: 04/03/18 11:36 Dose: 100 mls/hr Insulin Detemir (Levemir) 26 units SC [facility] Last Admin: 04/02/18 21:29 Dose: 26 units Insulin Human Regular (Humulin R) 0 units SC [facility] PRN Reason: Protocol Last Admin: 04/03/18 11:43 Dose: Not Given Levetiracetam (Keppra) 500 mg PO Q12 [facility] Last Admin: 04/03/18 11:34 Dose: 500 mg Lisinopril (Zestril) 20 mg PO DAILY [facility] Last Admin: 04/03/18 11:37 Dose: Not Given Magnesium Hydroxide (Milk Of Magnesia) 30 ml PO Q72H PRN PRN Reason: Constipation Pantoprazole Sodium (Protonix Ec Tab) 20 mg PO DAILY [facility] Last Admin: 04/03/18 11:36 Dose: 20 mg Polyethylene Glycol (Miralax) 17 gm PO DAILY [facility] Pravastatin Sodium (Pravachol) 20 mg PO [facility] Last Admin: 04/02/18 21:24 Dose: 20 mg - Labs Labs: 04/03/18 05:30 04/03/18 05:30 PT 11.4 Seconds (9.8-13.1) 04/01/18 08:27 INR 1.0 (0.9-1.2) 04/01/18 08:27 APTT 33.6 Seconds (25.6-37.1) 04/01/18 08:27 - Constitutional Appears: No Acute Distress - Head Exam Head Exam: NORMAL INSPECTION - Eye Exam Eye Exam: PERRL - ENT Exam ENT Exam: Normal Exam - Neck Exam Neck Exam: Normal Inspection - Respiratory Exam Respiratory Exam: Clear to Ausculation Bilateral - Cardiovascular Exam Cardiovascular Exam: REGULAR RHYTHM - GI/Abdominal Exam GI & Abdominal Exam: Soft, Normal Bowel Sounds - Extremities Exam Extremities Exam: Normal Inspection - Back Exam Back Exam: NORMAL INSPECTION - Neurological Exam Neurological Exam: Alert Additional comments: Slow mentation, cogwheel rigidity, mild tremor U/E - Psychiatric Exam Psychiatric exam: Anxious, Depressed - Skin Skin Exam: Warm Assessment and Plan (1) Chest pain Status: Acute (2) Hyperglycemia Status: Acute (3) DM I (diabetes mellitus, type I) Status: Chronic (4) HTN (hypertension) Status: Chronic (5) Alzheimer disease Status: Chronic (6) Dementia Status: Chronic (7) Parkinsons Status: Acute (8) Seizure Status: Chronic (9) Anxiety Status: Acute (10) Depression Status: Chronic - Assessment and Plan (Free Text) Plan: 1st part of STT (pos) , awaiting 2nd part, [employer] Department Supervisor planning Cardiac Cath, continue Rocephin UTI E Coli, Sinemet, Neurontin, Keppra , Insulin and rest of treatment.
--- NOTE | 2018-04-03 17:03 | CARD ---
APPROVED REPORT Date of service: 04/01/2018 Protocol: LEXISCAN Test Type: LEXISCAN Medications: Carvedilol 12.5mg, Dicyclomine 20mg, Insulin, Lisinpril 20mg. Medical History: DIABETIC, ASTHMA, DEMENTIA, DEPRESSION, GERD, HTN, HYPERCHOLESTEROLEROLEMIA, PARKINSON'S DISEASE Target HR: 158 bpm Resting ECG: abnormal Resting Heart Rate: 68 bpm Resting Blood Pressure: 142/57mmHg submaximum (85%): 134 bpm TEST SUMMARY [id number]. [id number]. INJECTIONNS [id number]. INJECTIONNUC [id number]. [id number]. PROCEDURE Pharmacologic stress testing was performed using 0.4mg per 5ml of regadenoson given intravenously over 7-10 seconds. POST EXERCISE Reason for Termination: Patient unable to walk on treadmill Target HR: No Max HR: 78 bpm 59% of Maximum Predicted HR: 158 bpm Exercise duration: 01:00 min:sec, 0 Stage Exercise capacity: 1.0METs Max Blood Pressure: 142/57mmHg Blood Pressure response to exercise: normal resting BP - blunted response Heart Rate response to exercise: appropriate Chest Pain: No, none Angina index: 0 Arrhythmia: No, none ST Change: Yes, Depression horizontal Deviation: 0 mm Clinical Indications Under Appropriate Use Criteria Medical history: 62 years old male is refer for nuclear stress test due to chest pain at rest. Patient developed resting chest pressure while hospitalized at [facility]. Patient has history of Parkinson disease. Stress EKG Interpretation Stress test showed st depression on II, III and AVF at exercises. No chest pain was reported Technologist Notes 1. The patient tolerated well the procedure. No chest pain was reported but he dropped his blood pressure from 140/76 to 92/60. The blood pressure returned to normal after a few minutes of finishing the test. 2. Pateint nuclear images were of good quality EXAM: Myocardial Perfusion REST/STRESS Image QualityGOOD Imaging Protocol The imaging protocol used to acquire images was Rest Tc-99m/stress Tc-99m 1 day Rest Spect myocardial perfusion imaging was performed in supine position 30 minutes following the injection of 10 mCi of Tc-99 Myoview. Time of rest injection: 7:33 Time of rest imagin:05 At peak stress, the patient was injected intravenously with 30mCi of Tc-99 tetrofosmin after an infusion time of minutes and seconds. Time of stress injection: 9:51 Time of stress imagin:00 Gated Stress Spect was performed 180 minutes after intravenous Tc-99 MyoviewTc-99 SestamibiTc-99 Myoview injection. The images were gated to evaluate regional wall motion and calculate ventricular ejection fraction. NUCLEAR IMAGE INTERPRETATION The rest and stress images show normal perfusion, normal contraction and thickening. LV Perfusion There was no significant perfusion defect both at rest and post activities Final result: Abnormal stress test with st depression on the inferior leads and T wave inversion on the lateral leads. No evidence of Myocardial perfusion defect on the nuclear images. LV Perfusion 1 The rest and stress images show normal perfusion. Wall Motion Normal motion and normal ejection fraction of the left ventricle. CONCLUSION 1. Abnormal stress test with st changes horizontal in configiuration affecting the inferior leads II, III and AVF and T waves inversion on the lateral leads of the electrocardiogram 2. Hypotension after injection of the Lexican contrast which reversed after a few mintues of termination of the test. 3. No evidence of perfusion defect both at rest or post exercises.
[2018-04-03] MEDS: POLYETHYLENE GLYCOL 3350 17 GM/Dose PACKET PO SCH (17:34)
[2018-04-03] MEDS ORDERED: Nitroglycerin 2% Ointment Foilpak UD TOP STA (18:31)
[2018-04-03] MEDS: Nitroglycerin 2% Ointment Foilpak UD TOP SCH (18:54)
[2018-04-03] MEDS: Pravastatin Sodium 20 MG TAB PO SCH (21:25)
[2018-04-03] MEDS: Insulin Detemir 100 Units/ml Inj SC SCH (21:29)
[2018-04-04] MEDS: Nitroglycerin 2% Ointment Foilpak UD TOP SCH ×4 (01:00→17:00)
[2018-04-04] MEDS: Insulin Regular 100 units/ml SC SCH ×4 (08:49→22:08)
[2018-04-04] MEDS: Enoxaparin 40 mg Syringe SC SCH (08:50)
[2018-04-04] MEDS: Pantoprazole 20 mg EC Tab PO SCH (09:24)
[2018-04-04] MEDS: POLYETHYLENE GLYCOL 3350 17 GM/Dose PACKET PO SCH (09:24)
[2018-04-04] MEDS ORDERED: Dextrose 50% SYRINGE Inj (50 ml) IVP STA ×2 (09:57→10:02)
[2018-04-04] MEDS ORDERED: Dextrose 5%/0.45% NS 1,000 ML IV SCH (10:15)
--- NOTE | 2018-04-04 10:17 | PCM.RRT ---
LPN PR[employer] D[employer] Nurse Assessment - Situation LPN PRIVATE DUTY Reason for Call: Change in Mental Status - IV IV Inserted during LPN PR[employer] DUTY?: No New IV Insertion Tolerance:: Good - Respiratory Oxygen Delivery Method: Nasal Cannula - Medication Medications Administered During LPN PR[employer] DUTY: 13:07 Lopressor 5 mg IV p. 13:06 Nitroglycerine 1/150 sublingual. 13:10 Plavix 75 mg po - Diagnostic Test Ordered EKG: Yes Chest X-Ray: No CT Scan: No - Stat Labs Ordered LPN PR[employer] D[employer] Stat Labs Ordered: TROPONIN CPR started during LPN PRIVATE DUTY?: No - Vital Signs Vital Signs: Rapid Response Vital Sign Blood Pressure 169/99 Pulse Rate 89 Respiratory Rate 18 Temperature 97.9 F Oxygen Saturation 100 - Time LPN PR[employer] D[employer] Ended Time LPN PR[employer] D[employer] Ended: 13:15 - Vital Signs at end of LPN PRIVATE DUTY Vital Signs at end of LPN PRIVATE DUTY: Rapid Response End Vital Sign Blood Pressure 161/90 Pulse Rate 89 Respiratory Rate 18 Temperature 97.8 F O2 Sat by Pulse Oximetry 100 - Recommendations LPN PR[employer] DUTY Level of Care Recommendations: Remain in current setting - Respiratory Oxygen Delivery Method: Nasal Cannula @L/min
--- NOTE | 2018-04-04 13:38 | CP.PCM.PN ---
Objective - Vital Signs/Intake and Output Vital Signs (last 24 hours): Temp Pulse Resp BP Pulse Ox 97.5 F L 50 L 18 105/64 100 04/04/18 08:04 04/04/18 08:44 04/04/18 08:04 04/04/18 08:44 04/04/18 08:04 - Medications Medications: Current Medications Acetaminophen (Tylenol 325mg Tab) 650 mg PO Q6 PRN PRN Reason: Temp above 101 Acetaminophen (Tylenol 325mg Tab) 650 mg PO Q6 PRN PRN Reason: Pain, Mild (1-3) Al Hydrox/Mg Hydrox/Simethicone (Maalox Plus 30 Ml) 30 ml PO Q4 PRN PRN Reason: Indigestion / Heartburn Last Admin: 04/02/18 15:45 Dose: 30 ml Carbidopa/Levodopa (Sinemet) 2 tab PO Q6 [facility] Last Admin: 04/04/18 09:27 Dose: Not Given Carvedilol (Coreg) 25 mg PO Q12 [facility] Last Admin: 04/04/18 08:44 Dose: Not Given Clonidine HCl (Catapres) 0.2 mg PO HS [facility] Last Admin: 04/03/18 21:22 Dose: 0.2 mg Dextrose (Dextrose 50% Inj) 0 ml IV STAT PRN; Protocol PRN Reason: Hypoglycemia Protocol Last Admin: 04/03/18 05:50 Dose: 50 ml Dextrose (Glutose 15) 0 gm PO ONCE PRN; Protocol PRN Reason: Hypoglycemia Protocol Dicyclomine HCl (Bentyl) 10 mg PO Q4 PRN PRN Reason: abdominal discomfort Last Admin: 04/02/18 15:45 Dose: 10 mg Duloxetine HCl (Cymbalta) 60 mg PO HS [facility] Last Admin: 04/03/18 21:22 Dose: 60 mg Enoxaparin Sodium (Lovenox) 40 mg SC DAILY [facility] Last Admin: 04/04/18 08:50 Dose: Not Given Ferrous Sulfate (Feosol) 325 mg PO QPM [facility] Last Admin: 04/03/18 17:32 Dose: 325 mg Gabapentin (Neurontin) 100 mg PO Q8 [facility] Last Admin: 04/04/18 09:24 Dose: Not Given Glucagon (Glucagen Diagnostic Kit) 0 mg IM STAT PRN; Protocol PRN Reason: Hypoglycemia Protocol Ceftriaxone Sodium 1 gm/ (Sodium Chloride) 100 mls @ 100 mls/hr IVPB DAILY [facility] PRN Reason: Protocol Last Admin: 04/03/18 11:36 Dose: 100 mls/hr Dextrose/Sodium Chloride (Dextrose 5%/0.45% Ns 1000 Ml) 1,000 mls @ 100 mls/hr IV .Q10H [facility] Stop: 04/05/18 10:03 Insulin Detemir (Levemir) 26 units SC HS [facility] Last Admin: 04/03/18 21:29 Dose: 26 units Insulin Human Regular (Humulin R) 0 units SC ACHS [facility] PRN Reason: Protocol Last Admin: 04/04/18 11:30 Dose: Not Given Levetiracetam (Keppra) 500 mg PO Q12 [facility] Last Admin: 04/04/18 08:48 Dose: 500 mg Lisinopril (Zestril) 20 mg PO DAILY [facility] Last Admin: 04/04/18 09:00 Dose: Not Given Magnesium Hydroxide (Milk Of Magnesia) 30 ml PO Q72H PRN PRN Reason: Constipation Nitroglycerin (Nitro-Bid 2% Oint) 1 ea TOP Q6H [facility] Last Admin: 04/04/18 13:04 Dose: Not Given Pantoprazole Sodium (Protonix Ec Tab) 20 mg PO DAILY [facility] Last Admin: 04/04/18 09:24 Dose: Not Given Polyethylene Glycol (Miralax) 17 gm PO DAILY [facility] Last Admin: 04/04/18 09:24 Dose: Not Given Pravastatin Sodium (Pravachol) 20 mg PO [facility] Last Admin: 04/03/18 21:25 Dose: 20 mg - Labs Labs: 04/03/18 05:30 04/03/18 05:30 PT 11.4 Seconds (9.8-13.1) 04/01/18 08:27 INR 1.0 (0.9-1.2) 04/01/18 08:27 APTT 33.6 Seconds (25.6-37.1) 04/01/18 08:27 Assessment and Plan (1) Chest pain Status: Acute
--- NOTE | 2018-04-04 17:59 | CP.PCM.PN ---
Subjective - Date & Time of Evaluation Date of Evaluation: 04/04/18 Time of Evaluation: 15:30 - Subjective Subjective: F/U Chest pain. Patient developed hypoglycemia prior to Cardiac Cath , procedure was cancelled and Patient was transferred back, to [facility] Telemetry, Patient awake, denies C/P , SOB, Patient's family at bedside Objective - Vital Signs/Intake and Output Vital Signs (last 24 hours): Temp Pulse Resp BP Pulse Ox 97.5 F L 73 20 153/83 H 94 L 04/04/18 15:54 04/04/18 15:54 04/04/18 15:54 04/04/18 15:54 04/04/18 15:54 - Medications Medications: Current Medications Acetaminophen (Tylenol 325mg Tab) 650 mg PO Q6 PRN PRN Reason: Temp above 101 Acetaminophen (Tylenol 325mg Tab) 650 mg PO Q6 PRN PRN Reason: Pain, Mild (1-3) Al Hydrox/Mg Hydrox/Simethicone (Maalox Plus 30 Ml) 30 ml PO Q4 PRN PRN Reason: Indigestion / Heartburn Last Admin: 04/02/18 15:45 Dose: 30 ml Carbidopa/Levodopa (Sinemet) 2 tab PO Q6 [facility] Last Admin: 04/04/18 17:25 Dose: 2 tab Carvedilol (Coreg) 25 mg PO Q12 [facility] Last Admin: 04/04/18 08:44 Dose: Not Given Clonidine HCl (Catapres) 0.2 mg PO HS [facility] Last Admin: 04/03/18 21:22 Dose: 0.2 mg Dextrose (Dextrose 50% Inj) 0 ml IV STAT PRN; Protocol PRN Reason: Hypoglycemia Protocol Last Admin: 04/03/18 05:50 Dose: 50 ml Dextrose (Glutose 15) 0 gm PO ONCE PRN; Protocol PRN Reason: Hypoglycemia Protocol Dicyclomine HCl (Bentyl) 10 mg PO Q4 PRN PRN Reason: abdominal discomfort Last Admin: 04/02/18 15:45 Dose: 10 mg Duloxetine HCl (Cymbalta) 60 mg PO HS [facility] Last Admin: 04/03/18 21:22 Dose: 60 mg Enoxaparin Sodium (Lovenox) 40 mg SC DAILY [facility] Last Admin: 04/04/18 08:50 Dose: Not Given Ferrous Sulfate (Feosol) 325 mg PO QPM [facility] Last Admin: 04/04/18 17:23 Dose: 325 mg Gabapentin (Neurontin) 100 mg PO Q8 [facility] Last Admin: 04/04/18 17:23 Dose: 100 mg Glucagon (Glucagen Diagnostic Kit) 0 mg IM STAT PRN; Protocol PRN Reason: Hypoglycemia Protocol Ceftriaxone Sodium 1 gm/ (Sodium Chloride) 100 mls @ 100 mls/hr IVPB DAILY [facility] PRN Reason: Protocol Last Admin: 04/04/18 17:20 Dose: 100 mls/hr Insulin Detemir (Levemir) 26 units SC HS [facility] Last Admin: 04/03/18 21:29 Dose: 26 units Insulin Human Regular (Humulin R) 0 units SC ACHS [facility] PRN Reason: Protocol Last Admin: 04/04/18 17:24 Dose: 6 units Levetiracetam (Keppra) 500 mg PO Q12 [facility] Last Admin: 04/04/18 08:48 Dose: 500 mg Lisinopril (Zestril) 20 mg PO DAILY [facility] Last Admin: 04/04/18 09:00 Dose: Not Given Magnesium Hydroxide (Milk Of Magnesia) 30 ml PO Q72H PRN PRN Reason: Constipation Nitroglycerin (Nitro-Bid 2% Oint) 1 ea TOP Q6H [facility] Last Admin: 04/04/18 13:04 Dose: Not Given Pantoprazole Sodium (Protonix Ec Tab) 20 mg PO DAILY [facility] Last Admin: 04/04/18 09:24 Dose: Not Given Polyethylene Glycol (Miralax) 17 gm PO DAILY [facility] Last Admin: 04/04/18 09:24 Dose: Not Given Pravastatin Sodium (Pravachol) 20 mg PO HS [facility] Last Admin: 04/03/18 21:25 Dose: 20 mg - Labs Labs: 04/03/18 05:30 04/03/18 05:30 PT 11.4 Seconds (9.8-13.1) 04/01/18 08:27 INR 1.0 (0.9-1.2) 04/01/18 08:27 APTT 33.6 Seconds (25.6-37.1) 04/01/18 08:27 - Constitutional Appears: Chronically Ill - Head Exam Head Exam: NORMAL INSPECTION - Eye Exam Eye Exam: PERRL - ENT Exam ENT Exam: Normal Exam - Neck Exam Neck Exam: Normal Inspection - Respiratory Exam Respiratory Exam: Clear to Ausculation Bilateral - Cardiovascular Exam Cardiovascular Exam: REGULAR RHYTHM - GI/Abdominal Exam GI & Abdominal Exam: Soft, Normal Bowel Sounds - Extremities Exam Extremities Exam: Normal Inspection - Back Exam Back Exam: NORMAL INSPECTION - Neurological Exam Neurological Exam: Awake Additional comments: answer simple questions , at times vague answers , cogwheel rigidity, mild tremor U/E - Psychiatric Exam Psychiatric exam: Anxious - Skin Skin Exam: Warm Assessment and Plan (1) Chest pain Status: Acute (2) Hyperglycemia Status: Acute (3) DM I (diabetes mellitus, type I) Status: Chronic (4) HTN (hypertension) Status: Chronic (5) Alzheimer disease Status: Chronic (6) Dementia Status: Chronic (7) Parkinsons Status: Acute (8) Seizure Status: Chronic (9) Anxiety Status: Acute (10) Depression Status: Chronic (11) UTI (urinary tract infection) Status: Acute - Assessment and Plan (Free Text) Plan: continue Rocephin, Catapres, Zestril, Sinemet, BS control
[2018-04-04] MEDS ORDERED: Sodium Chloride 0.45% 1,000 ML IV SCH (18:00)
[2018-04-04] MEDS: Pravastatin Sodium 20 MG TAB PO SCH (21:12)
[2018-04-04] MEDS: Insulin Detemir 100 Units/ml Inj SC SCH (22:09)
[2018-04-05] MEDS: Nitroglycerin 2% Ointment Foilpak UD TOP SCH ×4 (01:28→22:03)
[2018-04-05] MEDS ORDERED: Dextrose 50% SYRINGE Inj (50 ml) IVP STA (04:11)
[2018-04-05] MEDS ORDERED: Dextrose 5%/0.45% NS 1,000 ML IV SCH (06:00)
[2018-04-05] MEDS ORDERED: Sodium Chloride 23.4% 20 MEQ in Dextrose 10% In Water 500 ML IV SCH (09:00)
--- NOTE | 2018-04-05 09:11 | PCM.RRT ---
<Shireen Wiseman - Last Filed: 04/05/18 09:35> MINE CAPTAIN Nurse Assessment - Situation MINE CAPTAIN Responder Arrival Time: 08:47 Location: [address] [place] [address] [employer]INE CAPTAIN Reason for Call: Looks Sicker (62 Y/O male with PMHx of HTN, DM, hyperlipidemia, parkinson disease was found to be actively seizing. Ativan 2mg IVP given. Seizures stopped, patient was responsive, and coherent. Glucose was found to be 33. D5 was changed to D10. Last dose of Levimir was given last night. Levimir will be d'cd. Regular insulin will be changed to lispro because creatinine is 2.3. Telemetry will be continued, will continue to observe patient. ) MINE CAPTAIN Called By: RN - IV IV Inserted during MINE CAPTAIN?: No New IV Insertion Tolerance:: Good - Respiratory Oxygen Delivery Method: Room Air Received Nebulizer Treatments: No Was the Patient Ventilated with Bag/Mask 100% O2?: No Secretions Suctioned?: No Was the Patient Intubated?: No Was the Patient Placed on a Ventilator?: No - Medication Medications Administered During MINE CAPTAIN: 13:07 Lopressor 5 mg IV p. 13:06 Nitroglycerine 1/150 sublingual. 13:10 Plavix 75 mg po - Diagnostic Test Ordered EKG: No Chest X-Ray: No CT Scan: No - Stat Labs Ordered MINE CAPTAIN Other Labs Ordered: none CPR started during MINE CAPTAIN?: No - Vital Signs Vital Signs: Rapid Response Vital Sign Blood Pressure 137/79 Pulse Rate 74 Respiratory Rate 14 Temperature 98.6 F Oxygen Saturation 100 - [place] Coma Scale Coma Scale Eye Opening: Spontaneous Coma Scale Verbal: Oriented - Time MINE CAPTAIN Ended Time MINE CAPTAIN Ended: 09:09 - Vital Signs at end of MINE CAPTAIN Vital Signs at end of MINE CAPTAIN: Rapid Response End Vital Sign Blood Pressure 137/79 Pulse Rate 74 Respiratory Rate 14 Temperature 98.6 F O2 Sat by Pulse Oximetry 100 - Recommendations MINE CAPTAIN Level of Care Recommendations: Remain in current setting Notifications: Attending Physician - Respiratory Oxygen Delivery Method: Nasal Cannula @L/min <Lydia Gamble - Last Filed: 04/05/18 16:41> MINE CAPTAIN Nurse Assessment - Vital Signs Vital Signs: Rapid Response Vital Sign Blood Pressure 135/70 Pulse Rate 73 Respiratory Rate 20 Temperature 97.9 F Oxygen Saturation 100 - Vital Signs at end of MINE CAPTAIN Vital Signs at end of MINE CAPTAIN: Rapid Response End Vital Sign Blood Pressure 139/71 Pulse Rate 69 Respiratory Rate 17 Temperature 97.8 F O2 Sat by Pulse Oximetry 100 Attending/Attestation - Attestation I have personally seen and examined this patient.: Yes I have fully participated in the care of the patient.: Yes I have reviewed all pertinent clinical information, including history, physical exam and plan: Yes Notes (Text): Seizure sec to Hypoglycemia - D 50 IV given 1 amp - start D10 - Hold insulin and all hypoglycemics - Pt's PMD - Dr Bond informed of event
[2018-04-05] MEDS: Dextrose 50% SYRINGE Inj (50 ml) IV PRN (09:24)
[2018-04-05] MEDS: POLYETHYLENE GLYCOL 3350 17 GM/Dose PACKET PO SCH (09:28)
[2018-04-05] MEDS: Pantoprazole 20 mg EC Tab PO SCH (09:28)
[2018-04-05] MEDS: Enoxaparin 40 mg Syringe SC SCH (09:33)
[2018-04-05] MEDS ORDERED: DEXTROSE 10% IV SCH (09:37)
[2018-04-05] MEDS ORDERED: SODIUM CHLORIDE IV SCH (09:37)
[2018-04-05] MEDS ORDERED: WATER IV SCH (09:37)
[2018-04-05 11:03] LABS: HEMOGLOBIN 11.3 g/dL (12.0-18.0); MEAN CELL VOLUME 94.9 fl (80.0-94.0); MEAN CORPUSCULAR HEMOGLOBIN 30.7 pg (27.0-31.0); MEAN CORPUSCULAR HGB CONC 32.4 g/dL (33.0-37.0); RBC 3.67 Mil/uL (4.40-5.90); RED CELL DISTRIBUTION WIDTH 14.6 % (11.5-14.5); WHITE BLOOD COUNT 4.4 K/uL (4.8-10.8)
[2018-04-05 11:23] LABS: CALCIUM 8.7 mg/dL (8.4-10.2)
[2018-04-05] MEDS: Insulin Lispro (humaLOG) 100 Units/ml Inj SC SCH ×3 (12:49→22:07)
--- NOTE | 2018-04-05 17:49 | CP.PCM.PN ---
Subjective - Date & Time of Evaluation Date of Evaluation: 04/05/18 Time of Evaluation: 16:30 - Subjective Subjective: F/U CP. Patient had earlier MITER SAW OPERATOR for Hypoglicemia and Seizure, Pt awake, no A/D, no SOB, no CP or discomfort. Objective - Vital Signs/Intake and Output Vital Signs (last 24 hours): Temp Pulse Resp BP Pulse Ox 97.7 F 80 18 149/81 97 04/05/18 16:00 04/05/18 16:00 04/05/18 16:00 04/05/18 16:00 04/05/18 16:00 - Medications Medications: Current Medications Acetaminophen (Tylenol 325mg Tab) 650 mg PO Q6 PRN PRN Reason: Temp above 101 Acetaminophen (Tylenol 325mg Tab) 650 mg PO Q6 PRN PRN Reason: Pain, Mild (1-3) Al Hydrox/Mg Hydrox/Simethicone (Maalox Plus 30 Ml) 30 ml PO Q4 PRN PRN Reason: Indigestion / Heartburn Last Admin: 04/02/18 15:45 Dose: 30 ml Carbidopa/Levodopa (Sinemet) 2 tab PO Q6 [facility] Last Admin: 04/05/18 17:00 Dose: 2 tab Carvedilol (Coreg) 25 mg PO Q12 [facility] Last Admin: 04/05/18 09:26 Dose: Not Given Clonidine HCl (Catapres) 0.2 mg PO HS [facility] Last Admin: 04/04/18 21:10 Dose: 0.2 mg Dextrose (Dextrose 50% Inj) 0 ml IV STAT PRN; Protocol PRN Reason: Hypoglycemia Protocol Last Admin: 04/05/18 09:24 Dose: 50 ml Dextrose (Glutose 15) 0 gm PO ONCE PRN; Protocol PRN Reason: Hypoglycemia Protocol Dicyclomine HCl (Bentyl) 10 mg PO Q4 PRN PRN Reason: abdominal discomfort Last Admin: 04/02/18 15:45 Dose: 10 mg Duloxetine HCl (Cymbalta) 60 mg PO HS [facility] Last Admin: 04/04/18 21:11 Dose: 60 mg Ferrous Sulfate (Feosol) 325 mg PO QPM [facility] Last Admin: 04/05/18 17:01 Dose: 325 mg Gabapentin (Neurontin) 100 mg PO Q8 [facility] Last Admin: 04/05/18 16:59 Dose: 100 mg Glucagon (Glucagen Diagnostic Kit) 0 mg IM STAT PRN; Protocol PRN Reason: Hypoglycemia Protocol Dextrose (Dextrose 10% In Water) 1,000 mls @ 50 mls/hr IV .Q20H [facility] Stop: 04/06/18 09:56 Last Admin: 04/05/18 10:00 Dose: 50 mls/hr Insulin Human Lispro (Humalog) 0 units SC ACHS [facility] PRN Reason: Protocol Last Admin: 04/05/18 16:58 Dose: 4 u Levetiracetam (Keppra) 500 mg PO Q12 [facility] Last Admin: 04/05/18 09:26 Dose: 500 mg Lisinopril (Zestril) 20 mg PO DAILY [facility] Last Admin: 04/05/18 09:34 Dose: 20 mg Magnesium Hydroxide (Milk Of Magnesia) 30 ml PO Q72H PRN PRN Reason: Constipation Nitroglycerin (Nitro-Bid 2% Oint) 1 ea TOP Q6H [facility] Last Admin: 04/05/18 12:46 Dose: Not Given Pantoprazole Sodium (Protonix Ec Tab) 20 mg PO DAILY [facility] Last Admin: 04/05/18 09:28 Dose: 20 mg Polyethylene Glycol (Miralax) 17 gm PO DAILY [facility] Last Admin: 04/05/18 09:28 Dose: 17 gm Pravastatin Sodium (Pravachol) 20 mg PO HS [facility] Last Admin: 04/04/18 21:12 Dose: 20 mg - Labs Labs: 04/05/18 10:05 04/05/18 10:05 PT 11.4 Seconds (9.8-13.1) 04/01/18 08:27 INR 1.0 (0.9-1.2) 04/01/18 08:27 APTT 33.6 Seconds (25.6-37.1) 04/01/18 08:27 - Constitutional Appears: No Acute Distress, Chronically Ill - Head Exam Head Exam: NORMAL INSPECTION - Eye Exam Eye Exam: PERRL - ENT Exam ENT Exam: Normal Exam - Neck Exam Neck Exam: Normal Inspection - Respiratory Exam Respiratory Exam: Clear to Ausculation Bilateral - Cardiovascular Exam Cardiovascular Exam: REGULAR RHYTHM - GI/Abdominal Exam GI & Abdominal Exam: Soft, Normal Bowel Sounds - Extremities Exam Extremities Exam: Normal Inspection - Back Exam Back Exam: NORMAL INSPECTION - Neurological Exam Neurological Exam: Awake Additional comments: O x2, answer questions, at times vague answers, cogwheel rigidity, mild tremors U/E - Psychiatric Exam Psychiatric exam: Anxious - Skin Skin Exam: Warm Assessment and Plan (1) Chest pain Status: Acute (2) Hyperglycemia Status: Acute (3) DM I (diabetes mellitus, type I) Status: Chronic (4) HTN (hypertension) Status: Chronic (5) Alzheimer disease Status: Chronic (6) Dementia Status: Chronic (7) Parkinsons Status: Acute (8) Seizure Status: Chronic (9) Anxiety Status: Acute (10) Depression Status: Chronic (11) UTI (urinary tract infection) Status: Acute - Assessment and Plan (Free Text) Plan: s/p MITER SAW OPERATOR for Hpoglicemia, BS control continue Humalog- Accu Check, Keppra, Sinemet, NitroBid, Catapres, Coreg, Zestril, Pravachol , Rocephin and rest of Tx , Cardiology f/u
--- NOTE | 2018-04-05 20:48 | CARD ---
APPROVED REPORT Date of service: 04/03/2018 EKG Measurement Heart [id number] [place] 148P66 [id number] <Conclusion> Normal sinus rhythm Incomplete right bundle branch block Left anterior fascicular block Septal infarct, age undetermined Abnormal ECG
[2018-04-05] MEDS: Pravastatin Sodium 20 MG TAB PO SCH (22:00)
[2018-04-06] MEDS: Nitroglycerin 2% Ointment Foilpak UD TOP SCH ×3 (02:21→21:41)
[2018-04-06] MEDS: Insulin Lispro (humaLOG) 100 Units/ml Inj SC SCH ×4 (06:35→21:40)
[2018-04-06] MEDS: POLYETHYLENE GLYCOL 3350 17 GM/Dose PACKET PO SCH (09:32)
[2018-04-06] MEDS: Pantoprazole 20 mg EC Tab PO SCH (09:33)
--- NOTE | 2018-04-06 13:23 | CP.PCM.PN ---
Subjective - Date & Time of Evaluation Date of Evaluation: 04/06/18 Time of Evaluation: 10:30 - Subjective Subjective: F/U CP alert, smiling , no A/D, no C/P Objective - Vital Signs/Intake and Output Vital Signs (last 24 hours): Temp Pulse Resp BP Pulse Ox 97.7 F 82 18 130/79 97 04/06/18 12:12 04/06/18 12:12 04/06/18 12:12 04/06/18 12:12 04/06/18 12:12 - Medications Medications: Current Medications Acetaminophen (Tylenol 325mg Tab) 650 mg PO Q6 PRN PRN Reason: Temp above 101 Acetaminophen (Tylenol 325mg Tab) 650 mg PO Q6 PRN PRN Reason: Pain, Mild (1-3) Al Hydrox/Mg Hydrox/Simethicone (Maalox Plus 30 Ml) 30 ml PO Q4 PRN PRN Reason: Indigestion / Heartburn Last Admin: 04/02/18 15:45 Dose: 30 ml Carbidopa/Levodopa (Sinemet) 2 tab PO Q6 [facility] Last Admin: 04/06/18 09:34 Dose: 2 tab Carvedilol (Coreg) 25 mg PO Q12 [facility] Last Admin: 04/06/18 09:31 Dose: 25 mg Clonidine HCl (Catapres) 0.2 mg PO HS [facility] Last Admin: 04/05/18 22:02 Dose: 0.2 mg Dextrose (Dextrose 50% Inj) 0 ml IV STAT PRN; Protocol PRN Reason: Hypoglycemia Protocol Last Admin: 04/05/18 09:24 Dose: 50 ml Dextrose (Glutose 15) 0 gm PO ONCE PRN; Protocol PRN Reason: Hypoglycemia Protocol Dicyclomine HCl (Bentyl) 10 mg PO Q4 PRN PRN Reason: abdominal discomfort Last Admin: 04/02/18 15:45 Dose: 10 mg Duloxetine HCl (Cymbalta) 60 mg PO HS [facility] Last Admin: 04/05/18 22:01 Dose: 60 mg Ferrous Sulfate (Feosol) 325 mg PO QPM [facility] Last Admin: 04/05/18 17:01 Dose: 325 mg Gabapentin (Neurontin) 100 mg PO Q8 [facility] Last Admin: 04/06/18 09:32 Dose: 100 mg Glucagon (Glucagen Diagnostic Kit) 0 mg IM STAT PRN; Protocol PRN Reason: Hypoglycemia Protocol Insulin Human Lispro (Humalog) 0 units SC ACHS [facility] PRN Reason: Protocol Last Admin: 04/06/18 06:35 Dose: 6 u Levetiracetam (Keppra) 500 mg PO Q12 [facility] Last Admin: 04/06/18 09:32 Dose: 500 mg Lisinopril (Zestril) 20 mg PO DAILY [facility] Last Admin: 04/06/18 09:34 Dose: 20 mg Magnesium Hydroxide (Milk Of Magnesia) 30 ml PO Q72H PRN PRN Reason: Constipation Nitroglycerin (Nitro-Bid 2% Oint) 1 ea TOP Q6H [facility] Last Admin: 04/06/18 02:21 Dose: 1 ea Pantoprazole Sodium (Protonix Ec Tab) 20 mg PO DAILY [facility] Last Admin: 04/06/18 09:33 Dose: 20 mg Polyethylene Glycol (Miralax) 17 gm PO DAILY [facility] Last Admin: 04/06/18 09:32 Dose: 17 gm Pravastatin Sodium (Pravachol) 20 mg PO HS [facility] Last Admin: 04/05/18 22:00 Dose: 20 mg - Labs Labs: 04/05/18 10:05 04/05/18 10:05 PT 11.4 Seconds (9.8-13.1) 04/01/18 08:27 INR 1.0 (0.9-1.2) 04/01/18 08:27 APTT 33.6 Seconds (25.6-37.1) 04/01/18 08:27 - Constitutional Appears: Chronically Ill - Head Exam Head Exam: NORMAL INSPECTION - Eye Exam Eye Exam: PERRL - ENT Exam ENT Exam: Normal Exam - Neck Exam Neck Exam: Normal Inspection - Respiratory Exam Respiratory Exam: Clear to Ausculation Bilateral - Cardiovascular Exam Cardiovascular Exam: REGULAR RHYTHM - GI/Abdominal Exam GI & Abdominal Exam: Soft, Normal Bowel Sounds - Extremities Exam Extremities Exam: Normal Inspection - Back Exam Back Exam: NORMAL INSPECTION - Neurological Exam Neurological Exam: Awake Additional comments: Answer questions, cogwheel rigidity, mild tremors upper extremities. - Psychiatric Exam Psychiatric exam: Anxious - Skin Skin Exam: Warm Assessment and Plan (1) Chest pain Status: Acute (2) Hyperglycemia Status: Acute (3) DM I (diabetes mellitus, type I) Status: Chronic (4) HTN (hypertension) Status: Chronic (5) Alzheimer disease Status: Chronic (6) Dementia Status: Chronic (7) Parkinsons Status: Acute (8) Seizure Status: Chronic (9) Anxiety Status: Acute (10) Depression Status: Chronic (11) UTI (urinary tract infection) Status: Acute - Assessment and Plan (Free Text) Plan: continue Keppra, Sinemet, NTG, Humalog Accu-Check, BS control,Rocephin, Mechanical Repair Worker planning to re-schedule for Cardiac Cath
[2018-04-06] MEDS: Pravastatin Sodium 20 MG TAB PO SCH (21:42)
[2018-04-07] MEDS: Nitroglycerin 2% Ointment Foilpak UD TOP SCH ×4 (04:29→21:06)
[2018-04-07] MEDS: Pantoprazole 20 mg EC Tab PO SCH (09:40)
[2018-04-07] MEDS: POLYETHYLENE GLYCOL 3350 17 GM/Dose PACKET PO SCH (09:44)
[2018-04-07 10:28] LABS: HEMOGLOBIN 9.6 g/dL (12.0-18.0); MEAN CELL VOLUME 95.1 fl (80.0-94.0); MEAN CORPUSCULAR HEMOGLOBIN 31.1 pg (27.0-31.0); MEAN CORPUSCULAR HGB CONC 32.7 g/dL (33.0-37.0); RBC 3.08 Mil/uL (4.40-5.90); RED CELL DISTRIBUTION WIDTH 14.7 % (11.5-14.5); WHITE BLOOD COUNT 3.5 K/uL (4.8-10.8)
[2018-04-07 10:42] LABS: CALCIUM 8.9 mg/dL (8.4-10.2)
--- NOTE | 2018-04-07 12:15 | CP.PCM.PN ---
Subjective - Date & Time of Evaluation Date of Evaluation: 04/07/18 Time of Evaluation: 12:14 - Subjective Subjective: no overnight events Objective - Vital Signs/Intake and Output Vital Signs (last 24 hours): Temp Pulse Resp BP Pulse Ox 98.2 F 87 18 146/73 96 04/07/18 00:12 04/07/18 04:29 04/07/18 00:12 04/07/18 04:29 04/07/18 00:12 - Medications Medications: Current Medications Acetaminophen (Tylenol 325mg Tab) 650 mg PO Q6 PRN PRN Reason: Temp above 101 Acetaminophen (Tylenol 325mg Tab) 650 mg PO Q6 PRN PRN Reason: Pain, Mild (1-3) Last Admin: 04/07/18 06:30 Dose: 650 mg Al Hydrox/Mg Hydrox/Simethicone (Maalox Plus 30 Ml) 30 ml PO Q4 PRN PRN Reason: Indigestion / Heartburn Last Admin: 04/02/18 15:45 Dose: 30 ml Carbidopa/Levodopa (Sinemet) 2 tab PO Q6 [facility] Last Admin: 04/07/18 09:39 Dose: 2 tab Carvedilol (Coreg) 25 mg PO Q12 [facility] Last Admin: 04/07/18 09:47 Dose: 25 mg Clonidine HCl (Catapres) 0.2 mg PO HS [facility] Last Admin: 04/06/18 21:39 Dose: 0.2 mg Dextrose (Dextrose 50% Inj) 0 ml IV STAT PRN; Protocol PRN Reason: Hypoglycemia Protocol Last Admin: 04/05/18 09:24 Dose: 50 ml Dextrose (Glutose 15) 0 gm PO ONCE PRN; Protocol PRN Reason: Hypoglycemia Protocol Dicyclomine HCl (Bentyl) 10 mg PO Q4 PRN PRN Reason: abdominal discomfort Last Admin: 04/02/18 15:45 Dose: 10 mg Duloxetine HCl (Cymbalta) 60 mg PO HS [facility] Last Admin: 04/06/18 21:40 Dose: 60 mg Ferrous Sulfate (Feosol) 325 mg PO QPM [facility] Last Admin: 04/06/18 16:55 Dose: 325 mg Gabapentin (Neurontin) 100 mg PO Q8 [facility] Last Admin: 04/07/18 09:40 Dose: 100 mg Glucagon (Glucagen Diagnostic Kit) 0 mg IM STAT PRN; Protocol PRN Reason: Hypoglycemia Protocol Ceftriaxone Sodium 1 gm/ (Sodium Chloride) 100 mls @ 100 mls/hr IVPB DAILY [facility] PRN Reason: Protocol Insulin Human Lispro (Humalog) 0 units SC ACHS [facility] PRN Reason: Protocol Last Admin: 04/06/18 21:40 Dose: 6 u Levetiracetam (Keppra) 500 mg PO Q12 [facility] Last Admin: 04/06/18 21:40 Dose: 500 mg Lisinopril (Zestril) 20 mg PO DAILY [facility] Last Admin: 04/07/18 09:41 Dose: 20 mg Magnesium Hydroxide (Milk Of Magnesia) 30 ml PO Q72H PRN PRN Reason: Constipation Nitroglycerin (Nitro-Bid 2% Oint) 1 ea TOP 0400,1000,1600,2200 [facility] Last Admin: 04/07/18 04:29 Dose: 1 ea Pantoprazole Sodium (Protonix Ec Tab) 20 mg PO DAILY [facility] Last Admin: 04/07/18 09:40 Dose: 20 mg Polyethylene Glycol (Miralax) 17 gm PO DAILY [facility] Last Admin: 04/07/18 09:44 Dose: Not Given Pravastatin Sodium (Pravachol) 20 mg PO HS [facility] Last Admin: 04/06/18 21:42 Dose: 20 mg - Labs Labs: 04/07/18 10:17 04/07/18 10:17 PT 11.4 Seconds (9.8-13.1) 04/01/18 08:27 INR 1.0 (0.9-1.2) 04/01/18 08:27 APTT 33.6 Seconds (25.6-37.1) 04/01/18 08:27 - Head Exam Head Exam: NORMAL INSPECTION - Neck Exam Neck Exam: Normal Inspection - Respiratory Exam Respiratory Exam: Clear to Ausculation Bilateral, NORMAL BREATHING PATTERN - Cardiovascular Exam Cardiovascular Exam: REGULAR RHYTHM - GI/Abdominal Exam GI & Abdominal Exam: Soft, Normal Bowel Sounds Assessment and Plan - Assessment and Plan (Free Text) Assessment: 62 yo male with cardiac chest pain no gi issues cardio input appreciated tolerating diet H2B prn
[2018-04-07] MEDS: Insulin Lispro (humaLOG) 100 Units/ml Inj SC SCH ×3 (13:00→21:14)
[2018-04-07] MEDS ORDERED: Insulin Lispro (humaLOG) 100 Units/ml Inj SC SCH (16:30)
--- NOTE | 2018-04-07 18:46 | CP.PCM.PN ---
Subjective - Date & Time of Evaluation Date of Evaluation: 04/07/18 Time of Evaluation: 12:40 - Subjective Subjective: F/U Chest pain. awake , answer questions , no C/P, no SOB, no abdominal pain Objective - Vital Signs/Intake and Output Vital Signs (last 24 hours): Temp Pulse Resp BP Pulse Ox 98.5 F 76 20 157/86 H 98 04/07/18 15:37 04/07/18 15:37 04/07/18 15:37 04/07/18 15:37 04/07/18 15:37 - Medications Medications: Current Medications Acetaminophen (Tylenol 325mg Tab) 650 mg PO Q6 PRN PRN Reason: Temp above 101 Acetaminophen (Tylenol 325mg Tab) 650 mg PO Q6 PRN PRN Reason: Pain, Mild (1-3) Last Admin: 04/07/18 06:30 Dose: 650 mg Al Hydrox/Mg Hydrox/Simethicone (Maalox Plus 30 Ml) 30 ml PO Q4 PRN PRN Reason: Indigestion / Heartburn Last Admin: 04/02/18 15:45 Dose: 30 ml Carbidopa/Levodopa (Sinemet) 2 tab PO Q6 [facility] Last Admin: 04/07/18 16:39 Dose: 2 tab Carvedilol (Coreg) 25 mg PO Q12 [facility] Last Admin: 04/07/18 09:47 Dose: 25 mg Clonidine HCl (Catapres) 0.2 mg PO HS [facility] Last Admin: 04/06/18 21:39 Dose: 0.2 mg Dextrose (Dextrose 50% Inj) 0 ml IV STAT PRN; Protocol PRN Reason: Hypoglycemia Protocol Last Admin: 04/05/18 09:24 Dose: 50 ml Dextrose (Glutose 15) 0 gm PO ONCE PRN; Protocol PRN Reason: Hypoglycemia Protocol Dicyclomine HCl (Bentyl) 10 mg PO Q4 PRN PRN Reason: abdominal discomfort Last Admin: 04/02/18 15:45 Dose: 10 mg Duloxetine HCl (Cymbalta) 60 mg PO HS [facility] Last Admin: 04/06/18 21:40 Dose: 60 mg Ferrous Sulfate (Feosol) 325 mg PO QPM [facility] Last Admin: 04/07/18 16:48 Dose: 325 mg Gabapentin (Neurontin) 100 mg PO Q8 [facility] Last Admin: 04/07/18 16:40 Dose: 100 mg Glucagon (Glucagen Diagnostic Kit) 0 mg IM STAT PRN; Protocol PRN Reason: Hypoglycemia Protocol Ceftriaxone Sodium 1 gm/ (Sodium Chloride) 100 mls @ 100 mls/hr IVPB DAILY [facility] PRN Reason: Protocol Last Admin: 04/07/18 12:25 Dose: 100 mls/hr Insulin Detemir (Levemir) 40 units SC HS [facility] Insulin Human Lispro (Humalog) 14 units SC AC [facility] Last Admin: 04/07/18 16:41 Dose: 14 units Insulin Human Lispro (Humalog) 0 units SC ACHS [facility] PRN Reason: Protocol Last Admin: 04/07/18 16:43 Dose: 6 unit Levetiracetam (Keppra) 500 mg PO Q12 [facility] Last Admin: 04/07/18 09:00 Dose: 500 mg Lisinopril (Zestril) 20 mg PO DAILY [facility] Last Admin: 04/07/18 09:41 Dose: 20 mg Magnesium Hydroxide (Milk Of Magnesia) 30 ml PO Q72H PRN PRN Reason: Constipation Nitroglycerin (Nitro-Bid 2% Oint) 1 ea TOP 0400,1000,1600,2200 [facility] Last Admin: 04/07/18 16:47 Dose: 1 ea Pantoprazole Sodium (Protonix Ec Tab) 20 mg PO DAILY [facility] Last Admin: 04/07/18 09:40 Dose: 20 mg Polyethylene Glycol (Miralax) 17 gm PO DAILY [facility] Last Admin: 04/07/18 09:44 Dose: Not Given Pravastatin Sodium (Pravachol) 20 mg PO HS [facility] Last Admin: 04/06/18 21:42 Dose: 20 mg - Labs Labs: 04/07/18 10:17 04/07/18 10:17 PT 11.4 Seconds (9.8-13.1) 04/01/18 08:27 INR 1.0 (0.9-1.2) 04/01/18 08:27 APTT 33.6 Seconds (25.6-37.1) 04/01/18 08:27 - Constitutional Appears: Chronically Ill - Head Exam Head Exam: NORMAL INSPECTION - Eye Exam Eye Exam: PERRL - ENT Exam ENT Exam: Normal Exam - Neck Exam Neck Exam: Normal Inspection - Respiratory Exam Respiratory Exam: Clear to Ausculation Bilateral - Cardiovascular Exam Cardiovascular Exam: REGULAR RHYTHM - GI/Abdominal Exam GI & Abdominal Exam: Soft, Normal Bowel Sounds - Extremities Exam Extremities Exam: Normal Inspection - Back Exam Back Exam: NORMAL INSPECTION - Neurological Exam Neurological Exam: Awake Additional comments: Answer simple questions, at time with vague answers, cogwheel rigidity, mild tremors U/E - Psychiatric Exam Psychiatric exam: Anxious - Skin Skin Exam: Warm Assessment and Plan (1) Chest pain Status: Acute (2) Hyperglycemia Status: Acute (3) DM I (diabetes mellitus, type I) Status: Chronic (4) HTN (hypertension) Status: Chronic (5) Alzheimer disease Status: Chronic (6) Dementia Status: Chronic (7) Parkinsons Status: Acute (8) Seizure Status: Chronic (9) Anxiety Status: Acute (10) Depression Status: Chronic (11) UTI (urinary tract infection) Status: Acute - Assessment and Plan (Free Text) Plan: BS elevated, D10% IV DC, continue NTG ,Coreg ,Clonidine , Vasotec, Cardiolgy planning Cardiac Cath am or following day , continue Keppra, Sinemet and rest of treatment
[2018-04-07] MEDS: Pravastatin Sodium 20 MG TAB PO SCH (21:06)
[2018-04-07] MEDS ORDERED: Insulin Detemir 100 Units/ml Inj SC SCH (22:00)
[2018-04-08] MEDS: Nitroglycerin 2% Ointment Foilpak UD TOP SCH ×4 (03:12→21:31)
--- NOTE | 2018-04-08 04:27 | CON ---
Copied To: Mercy Trujillo MD DATE: 04/07/2018 ENDOCRINOLOGY CONSULTATION LOCATION: Room 413. HISTORY OF PRESENT ILLNESS: This is a 62-year-old male with known history of type 2 insulin-requiring diabetes, admitted with precordial chest pain and undergoing cardiac workup as noted thereof and is now being referred for diabetic evaluation because of marked hyperglycemic accelerations as noted thereof. His glucose values overnight have ranged from 439 to over 500 mg/dL. PAST MEDICAL HISTORY: History of type 2 insulin-requiring diabetes, on a combination of Lantus given as 32 units at bedtime with Humalog insulin given as per sliding scale at the correction. History of hypertension and dyslipidemia, history of coronary artery disease and peripheral arterial disease and vasculopathy. He has known history of Parkinson's disease with persistent tremors in both upper extremities. History of diabetic retinopathy and polyneuropathy with underlying nephropathy as noted. FAMILY HISTORY: Positive for hypertension and diabetes. SOCIAL HISTORY: The patient is a [facility] resident and had a previous significant history of nicotine dependence but quit a few years ago. He has a supportive family, otherwise. REVIEW OF SYSTEMS: As mentioned above. Admits to generalized body weakness with progressive bouts of dizziness and lightheadedness, worse on the day of admission. Also admits to visual blurring and bifrontal headaches with easy fatigability and tiredness. Admits to sudden onset of precordial chest pain with progressive shortness of breath initially on exertion and then at rest. His oral intake has been variable with nausea, dyspepsia, and upper abdominal pain with habitual constipation. Also admits to marked polyuria, nocturia, and polydipsia as noted and also admits to lower extremity painful paresthesias. PHYSICAL EXAMINATION: GENERAL: This is an average-built male in no apparent distress. VITAL SIGNS: With a blood pressure of 150/90, pulse of 70 beats per minute and regular, temperature 99, respirations 20. Height is 5 feet 8 inches. Weight is 160 pounds. HEENT: Head normocephalic. Eyes anicteric with pink conjunctivae. Funduscopy not possible at this time. Ears, nose, and throat otherwise normal. NECK: Supple. Thyroid gland is normal in size. No carotid bruits or any cervical adenopathy. CARDIOPULMONARY: Some adynamic precordium. S1, S2 are rapid and regular. LUNGS: Clear to auscultation. ABDOMEN: Flat, soft with positive bowel sounds. EXTREMITIES: No peripheral edema. Pulses are +2 bilaterally. LABORATORY DATA: His chemistry showed a BUN of 22, sodium 132, potassium 5.1, chloride 100, CO2 of 23, glucose 552, and creatinine 1.7. ASSESSMENT: This is a 62-year-old male with uncontrolled and decompensated type 2 insulin-requiring diabetes, presenting here with marked hyperglycemic accelerations and concurrent hyperosmolar hyperglycemic state with precordial chest pain and undergoing cardiac workup for acute coronary syndrome. He also has diabetic microvascular complications of retinopathy, polyneuropathy, and nephropathy. PLAN OF MANAGEMENT: We will intensify his insulin regimen and start him right away on a more physiologic basal and bolus insulin drug combination with Humalog to be started at 14 units subcu t.i.d. before meals to start today. We will also modify the coverage scale to obviate hypoglycemia, and detailed orders have been given, using Humalog on a low-dose algorithm as ordered. We will also initiate basal insulin with Levemir to be given as 40 units subcu at bedtime daily to start tonight. We will obtain serial chemistries and supplement accordingly as needed. We will continue the IV hydration also as given. We will follow. Mercy Trujillo MD
[2018-04-08 06:13] LABS: HEMOGLOBIN 10.2 g/dL (12.0-18.0); MEAN CELL VOLUME 93.3 fl (80.0-94.0); MEAN CORPUSCULAR HEMOGLOBIN 31.1 pg (27.0-31.0); MEAN CORPUSCULAR HGB CONC 33.4 g/dL (33.0-37.0); RBC 3.27 Mil/uL (4.40-5.90); RED CELL DISTRIBUTION WIDTH 14.6 % (11.5-14.5); WHITE BLOOD COUNT 5.2 K/uL (4.8-10.8)
[2018-04-08 06:23] LABS: ALBUMIN 3.1 g/dL (3.5-5.0); CALCIUM 9.4 mg/dL (8.4-10.2)
[2018-04-08] MEDS: Insulin Lispro (humaLOG) 100 Units/ml Inj SC SCH ×7 (09:57→21:32)
[2018-04-08] MEDS: POLYETHYLENE GLYCOL 3350 17 GM/Dose PACKET PO SCH (09:57)
[2018-04-08] MEDS: Pantoprazole 20 mg EC Tab PO SCH (10:03)
--- NOTE | 2018-04-08 12:37 | CP.PCM.CON ---
Past Patient History - Infectious Disease Hx of Infectious Diseases: None - Past Medical History & Family History Past Medical History?: Yes - Past Social History Smoking Status: Unknown If Ever Smoked Alcohol: None Drugs: Denies Home Situation {Lives}: [facility] - CARDIAC Hx Cardiac Disorders: Yes Hx Hypercholesterolemia: Yes Hx Hypertension: Yes - PULMONARY Hx Respiratory Disorders: Yes Hx Asthma: Yes - NEUROLOGICAL Hx Neurological Disorder: Yes Hx Dementia: Yes Hx Parkinson's Disease: Yes Hx Seizures: Yes - HEENT Hx HEENT Problems: No - RENAL Hx Chronic Kidney Disease: Yes Hx Renal Failure: Yes - ENDOCRINE/METABOLIC Hx Endocrine Disorders: Yes Hx Diabetes Mellitus Type 1: Yes - HEMATOLOGICAL/ONCOLOGICAL Hx Blood Disorders: No - INTEGUMENTARY Hx Dermatological Problems: No - MUSCULOSKELETAL/RHEUMATOLOGICAL Hx Musculoskeletal Disorders: No Hx Falls: No - GASTROINTESTINAL Hx Gastrointestinal Disorders: Yes Hx Clostridium Difficile: Yes - GENITOURINARY/GYNECOLOGICAL Hx Genitourinary Disorders: No - PSYCHIATRIC Hx Psychophysiologic Disorder: Yes Hx Depression: Yes Hx Substance Use: No - SURGICAL HISTORY Hx Surgeries: No - ANESTHESIA Hx Anesthesia: No Meds Allergies/Adverse Reactions: Allergies Allergy/AdvReac Type Severity Reaction Status Date / Time No Known Allergies Allergy Verified 04/04/18 10:32 - Medications Medications: Current Medications Acetaminophen (Tylenol 325mg Tab) 650 mg PO Q6 PRN PRN Reason: Temp above 101 Last Admin: 04/08/18 02:49 Dose: 650 mg Acetaminophen (Tylenol 325mg Tab) 650 mg PO Q6 PRN PRN Reason: Pain, Mild (1-3) Last Admin: 04/07/18 06:30 Dose: 650 mg Al Hydrox/Mg Hydrox/Simethicone (Maalox Plus 30 Ml) 30 ml PO Q4 PRN PRN Reason: Indigestion / Heartburn Last Admin: 04/02/18 15:45 Dose: 30 ml Carbidopa/Levodopa (Sinemet) 2 tab PO Q6 [facility] Last Admin: 04/08/18 10:00 Dose: 2 tab Carvedilol (Coreg) 25 mg PO Q12 [facility] Last Admin: 04/08/18 10:02 Dose: 25 mg Clonidine HCl (Catapres) 0.2 mg PO HS [facility] Last Admin: 04/07/18 21:04 Dose: 0.2 mg Dextrose (Dextrose 50% Inj) 0 ml IV STAT PRN; Protocol PRN Reason: Hypoglycemia Protocol Last Admin: 04/05/18 09:24 Dose: 50 ml Dextrose (Glutose 15) 0 gm PO ONCE PRN; Protocol PRN Reason: Hypoglycemia Protocol Dicyclomine HCl (Bentyl) 10 mg PO Q4 PRN PRN Reason: abdominal discomfort Last Admin: 04/02/18 15:45 Dose: 10 mg Duloxetine HCl (Cymbalta) 60 mg PO HS [facility] Last Admin: 04/07/18 21:05 Dose: 60 mg Ferrous Sulfate (Feosol) 325 mg PO QPM [facility] Last Admin: 04/07/18 16:48 Dose: 325 mg Gabapentin (Neurontin) 100 mg PO Q8 [facility] Last Admin: 04/08/18 10:00 Dose: 100 mg Glucagon (Glucagen Diagnostic Kit) 0 mg IM STAT PRN; Protocol PRN Reason: Hypoglycemia Protocol Ceftriaxone Sodium 1 gm/ (Sodium Chloride) 100 mls @ 100 mls/hr IVPB DAILY [facility] PRN Reason: Protocol Last Admin: 04/08/18 11:58 Dose: 100 mls/hr Sodium Chloride (Sodium Chloride 0.9%) 1,000 mls @ 100 mls/hr IV .Q10H [facility] Stop: 04/09/18 12:03 Insulin Detemir (Levemir) 40 units SC HS [facility] Last Admin: 04/07/18 21:13 Dose: 40 units Insulin Human Lispro (Humalog) 0 units SC ACHS [facility] PRN Reason: Protocol Last Admin: 04/08/18 09:57 Dose: Not Given Insulin Human Lispro (Humalog) 24 units SC AC [facility] Last Admin: 04/08/18 09:57 Dose: Not Given Levetiracetam (Keppra) 500 mg PO Q12 [facility] Last Admin: 04/08/18 10:02 Dose: 500 mg Lisinopril (Zestril) 20 mg PO DAILY [facility] Last Admin: 04/08/18 10:03 Dose: Not Given Magnesium Hydroxide (Milk Of Magnesia) 30 ml PO Q72H PRN PRN Reason: Constipation Nitroglycerin (Nitro-Bid 2% Oint) 1 ea TOP 0400,1000,1600,2200 [facility] Last Admin: 04/08/18 10:05 Dose: 1 ea Pantoprazole Sodium (Protonix Ec Tab) 20 mg PO DAILY [facility] Last Admin: 04/08/18 10:03 Dose: 20 mg Polyethylene Glycol (Miralax) 17 gm PO DAILY [facility] Last Admin: 04/08/18 09:57 Dose: Not Given Pravastatin Sodium (Pravachol) 20 mg PO HS [facility] Last Admin: 04/07/18 21:06 Dose: 20 mg Results - Vital Signs Recent Vital Signs: Last Vital Signs Temp 97.7 F 04/08/18 08:32 Pulse 65 04/08/18 10:05 Resp 20 04/08/18 08:32 BP 151/64 H 04/08/18 10:05 Pulse Ox 99 04/08/18 08:32 - Labs Result Diagrams: 04/08/18 04:20 04/08/18 04:20 Labs: Laboratory Results - last 24 hr 04/07/18 04/07/18 04/08/18 16:19 21:12 04:20 WBC 5.2 RBC 3.27 L Hgb 10.2 L Hct 30.6 L MCV 93.3 MCH 31.1 H MCHC 33.4 RDW 14.6 H Plt Count 128 L D Sodium Potassium Chloride Carbon Dioxide Anion Gap BUN Creatinine Est GFR ( Amer) Est GFR (Non-Af Amer) POC Glucose (mg/dL) > 500 H* > 500 H* Random Glucose Calcium Phosphorus Magnesium Total Bilirubin AST ALT Alkaline Phosphatase Total Protein Albumin Globulin Albumin/Globulin Ratio TSH 3rd Generation 04/08/18 04/08/18 04/08/18 04:20 05:51 06:20 WBC RBC Hgb Hct MCV MCH MCHC RDW Plt Count Sodium 142 Potassium 3.8 Chloride 106 Carbon Dioxide 31 H Anion Gap 9 L BUN 27 H Creatinine 2.1 H Est GFR ( Amer) 39 Est GFR (Non-Af Amer) 32 POC Glucose (mg/dL) 57 L 58 L Random Glucose 57 L Calcium 9.4 Phosphorus 2.8 Magnesium 2.1 Total Bilirubin 0.6 AST 18 ALT 8 L D Alkaline Phosphatase 81 Total Protein 6.3 Albumin 3.1 L Globulin 3.2 Albumin/Globulin Ratio 1.0 TSH 3rd Generation 2.51 04/08/18 04/08/18 08:39 11:26 WBC RBC Hgb Hct MCV MCH MCHC RDW Plt Count Sodium Potassium Chloride Carbon Dioxide Anion Gap BUN Creatinine Est GFR ( Amer) Est GFR (Non-Af Amer) POC Glucose (mg/dL) 103 193 H Random Glucose Calcium Phosphorus Magnesium Total Bilirubin AST ALT Alkaline Phosphatase Total Protein Albumin Globulin Albumin/Globulin Ratio TSH 3rd Generation
[2018-04-08] MEDS: Sodium Chloride 0.9% 1,000 ML IV SCH (14:02)
--- NOTE | 2018-04-08 15:24 | CP.PCM.PN ---
Subjective - Date & Time of Evaluation Date of Evaluation: 04/08/18 Time of Evaluation: 09:15 - Subjective Subjective: F/U CP awake, answer questions, follows commands, no SOB, no C/P Objective - Vital Signs/Intake and Output Vital Signs (last 24 hours): Temp Pulse Resp BP Pulse Ox 98.5 F 71 20 145/83 98 04/08/18 13:02 04/08/18 13:02 04/08/18 13:02 04/08/18 13:02 04/08/18 13:02 - Medications Medications: Current Medications Acetaminophen (Tylenol 325mg Tab) 650 mg PO Q6 PRN PRN Reason: Temp above 101 Last Admin: 04/08/18 02:49 Dose: 650 mg Acetaminophen (Tylenol 325mg Tab) 650 mg PO Q6 PRN PRN Reason: Pain, Mild (1-3) Last Admin: 04/07/18 06:30 Dose: 650 mg Al Hydrox/Mg Hydrox/Simethicone (Maalox Plus 30 Ml) 30 ml PO Q4 PRN PRN Reason: Indigestion / Heartburn Last Admin: 04/02/18 15:45 Dose: 30 ml Carbidopa/Levodopa (Sinemet) 2 tab PO Q6 [facility] Last Admin: 04/08/18 10:00 Dose: 2 tab Carvedilol (Coreg) 25 mg PO Q12 [facility] Last Admin: 04/08/18 10:02 Dose: 25 mg Clonidine HCl (Catapres) 0.2 mg PO HS [facility] Last Admin: 04/07/18 21:04 Dose: 0.2 mg Dextrose (Dextrose 50% Inj) 0 ml IV STAT PRN; Protocol PRN Reason: Hypoglycemia Protocol Last Admin: 04/05/18 09:24 Dose: 50 ml Dextrose (Glutose 15) 0 gm PO ONCE PRN; Protocol PRN Reason: Hypoglycemia Protocol Dicyclomine HCl (Bentyl) 10 mg PO Q4 PRN PRN Reason: abdominal discomfort Last Admin: 04/02/18 15:45 Dose: 10 mg Duloxetine HCl (Cymbalta) 60 mg PO HS [facility] Last Admin: 04/07/18 21:05 Dose: 60 mg Ferrous Sulfate (Feosol) 325 mg PO QPM [facility] Last Admin: 04/07/18 16:48 Dose: 325 mg Gabapentin (Neurontin) 100 mg PO Q8 [facility] Last Admin: 04/08/18 10:00 Dose: 100 mg Glucagon (Glucagen Diagnostic Kit) 0 mg IM STAT PRN; Protocol PRN Reason: Hypoglycemia Protocol Ceftriaxone Sodium 1 gm/ (Sodium Chloride) 100 mls @ 100 mls/hr IVPB DAILY [facility] PRN Reason: Protocol Last Admin: 04/08/18 11:58 Dose: 100 mls/hr Sodium Chloride (Sodium Chloride 0.9%) 1,000 mls @ 100 mls/hr IV .Q10H [facility] Stop: 04/09/18 12:03 Last Admin: 04/08/18 14:02 Dose: 100 mls/hr Insulin Detemir (Levemir) 12 units SC HS [facility] Insulin Human Lispro (Humalog) 0 units SC ACHS [facility] PRN Reason: Protocol Last Admin: 04/08/18 13:54 Dose: Not Given Insulin Human Lispro (Humalog) 6 units SC AC [facility] Levetiracetam (Keppra) 500 mg PO Q12 [facility] Last Admin: 04/08/18 10:02 Dose: 500 mg Lisinopril (Zestril) 20 mg PO DAILY [facility] Last Admin: 04/08/18 10:03 Dose: Not Given Magnesium Hydroxide (Milk Of Magnesia) 30 ml PO Q72H PRN PRN Reason: Constipation Nitroglycerin (Nitro-Bid 2% Oint) 1 ea TOP 0400,1000,1600,2200 [facility] Last Admin: 04/08/18 10:05 Dose: 1 ea Pantoprazole Sodium (Protonix Ec Tab) 20 mg PO DAILY [facility] Last Admin: 04/08/18 10:03 Dose: 20 mg Polyethylene Glycol (Miralax) 17 gm PO DAILY [facility] Last Admin: 04/08/18 09:57 Dose: Not Given Pravastatin Sodium (Pravachol) 20 mg PO HS [facility] Last Admin: 04/07/18 21:06 Dose: 20 mg - Labs Labs: 04/08/18 04:20 04/08/18 04:20 PT 11.4 Seconds (9.8-13.1) 04/01/18 08:27 INR 1.0 (0.9-1.2) 04/01/18 08:27 APTT 33.6 Seconds (25.6-37.1) 04/01/18 08:27 - Constitutional Appears: No Acute Distress, Chronically Ill - Head Exam Head Exam: NORMAL INSPECTION - Eye Exam Eye Exam: PERRL - ENT Exam ENT Exam: Normal Exam - Neck Exam Neck Exam: Normal Inspection - Respiratory Exam Respiratory Exam: Clear to Ausculation Bilateral - Cardiovascular Exam Cardiovascular Exam: REGULAR RHYTHM - GI/Abdominal Exam GI & Abdominal Exam: Soft, Normal Bowel Sounds - Extremities Exam Extremities Exam: Normal Inspection - Back Exam Back Exam: NORMAL INSPECTION - Neurological Exam Neurological Exam: Awake Additional comments: Answer simple questions, at times with vague response, cogwheel rigidity, mild tremors upper extremities. - Psychiatric Exam Psychiatric exam: Anxious - Skin Skin Exam: Warm Assessment and Plan (1) Chest pain Status: Acute (2) Hyperglycemia Status: Acute (3) DM I (diabetes mellitus, type I) Status: Chronic (4) HTN (hypertension) Status: Chronic (5) Alzheimer disease Status: Chronic (6) Dementia Status: Chronic (7) Parkinsons Status: Acute (8) Seizure Status: Chronic (9) Anxiety Status: Acute (10) Depression Status: Chronic (11) UTI (urinary tract infection) Status: Acute (12) KANDI (acute kidney injury) Status: Acute (13) CKD (chronic kidney disease) Status: Acute - Assessment and Plan (Free Text) Plan: Cardiology planning Cardiac Cath, monitor BS, BP control, BUN , Creat increased, Renal consult, continue Rocephin , Keppra, Sinemet, Insulin and rest of treatment
[2018-04-08] MEDS ORDERED: Insulin Lispro (humaLOG) 100 Units/ml Inj SC ONE (18:52)
--- NOTE | 2018-04-08 19:39 | PN ---
Copied To: Mercy Trujillo MD Attending MD: Mercy Trujillo MD DATE: 04/08/2018 ENDO FOLLOWUP NOTE LOCATION: In room 413. SUBJECTIVE: This is a 62-year-old male with recent uncontrolled type 2 insulin-requiring diabetes, now with extremes of glycemic fluctuations with initial presentation of symptomatic hypoglycemia with supervening hyperglycemic accelerations after the initiation of D10W infusion, and now overnight, has developed recurrent bouts of symptomatic hypoglycemia as noted thereof. His glucose levels have ranged from 57 to 103 and 195 mg/dL. LABORATORY DATA: His latest chemistries showed a BUN of 27, sodium 142, potassium 3.8, chloride 106, CO2 of 31, glucose 57, and creatinine 2.1. The creatinine yesterday was 1.7 as noted. ASSESSMENT: This is a 62-year-old male with uncontrolled and decompensated type 2 insulin-requiring diabetes with extremes of glycemic fluctuations ranging from hypoglycemia to hyperglycemic accelerations as noted overnight and today has supervening recurrence of symptomatic hypoglycemia with associated neuroglycopenic and hyperadrenergic manifestations of the same. There is also increasing prerenal azotemia and dehydration, most likely related to the recent increased osmotic diuresis thereof. PLAN OF MANAGEMENT: We will modify his basal and bolus insulin regimen once again and lower the Humalog to 6 units subcu t.i.d. before meals, to start at dinnertime today as ordered. We will titrate incrementally as indicated to optimize metabolic control. We will also modify his basal insulin regimen with a much lower dose of Levemir given as 12 units subcu at bedtime daily as given. We will titrate incrementally as indicated to optimize metabolic control. We will obtain serial chemistries and supplement accordingly as needed. We will follow. Mercy Trujillo MD
[2018-04-08] MEDS: Pravastatin Sodium 20 MG TAB PO SCH (21:28)
[2018-04-08] MEDS ORDERED: Insulin Detemir 100 Units/ml Inj SC SCH (22:00)
--- NOTE | 2018-04-08 23:57 | CP.PCM.PN ---
Subjective - Date & Time of Evaluation Date of Evaluation: 04/08/18 Time of Evaluation: 23:00 Objective - Vital Signs/Intake and Output Vital Signs (last 24 hours): Temp Pulse Resp BP Pulse Ox 98.9 F 77 20 153/83 H 99 04/08/18 19:44 04/08/18 21:31 04/08/18 19:44 04/08/18 21:31 04/08/18 19:44 - Medications Medications: Current Medications Acetaminophen (Tylenol 325mg Tab) 650 mg PO Q6 PRN PRN Reason: Temp above 101 Last Admin: 04/08/18 02:49 Dose: 650 mg Acetaminophen (Tylenol 325mg Tab) 650 mg PO Q6 PRN PRN Reason: Pain, Mild (1-3) Last Admin: 04/07/18 06:30 Dose: 650 mg Al Hydrox/Mg Hydrox/Simethicone (Maalox Plus 30 Ml) 30 ml PO Q4 PRN PRN Reason: Indigestion / Heartburn Last Admin: 04/02/18 15:45 Dose: 30 ml Carbidopa/Levodopa (Sinemet) 2 tab PO Q6 [facility] Last Admin: 04/08/18 21:27 Dose: 2 tab Carvedilol (Coreg) 25 mg PO Q12 [facility] Last Admin: 04/08/18 21:28 Dose: 25 mg Clonidine HCl (Catapres) 0.2 mg PO HS [facility] Last Admin: 04/08/18 21:27 Dose: 0.2 mg Dextrose (Dextrose 50% Inj) 0 ml IV STAT PRN; Protocol PRN Reason: Hypoglycemia Protocol Last Admin: 04/05/18 09:24 Dose: 50 ml Dextrose (Glutose 15) 0 gm PO ONCE PRN; Protocol PRN Reason: Hypoglycemia Protocol Dicyclomine HCl (Bentyl) 10 mg PO Q4 PRN PRN Reason: abdominal discomfort Last Admin: 04/02/18 15:45 Dose: 10 mg Duloxetine HCl (Cymbalta) 60 mg PO HS [facility] Last Admin: 04/08/18 21:28 Dose: 60 mg Ferrous Sulfate (Feosol) 325 mg PO QPM [facility] Last Admin: 04/08/18 17:06 Dose: 325 mg Gabapentin (Neurontin) 100 mg PO Q8 [facility] Last Admin: 04/08/18 17:05 Dose: 100 mg Glucagon (Glucagen Diagnostic Kit) 0 mg IM STAT PRN; Protocol PRN Reason: Hypoglycemia Protocol Ceftriaxone Sodium 1 gm/ (Sodium Chloride) 100 mls @ 100 mls/hr IVPB DAILY [facility] PRN Reason: Protocol Last Admin: 04/08/18 11:58 Dose: 100 mls/hr Sodium Chloride (Sodium Chloride 0.9%) 1,000 mls @ 100 mls/hr IV .Q10H [facility] Stop: 04/09/18 12:03 Last Admin: 04/08/18 14:02 Dose: 100 mls/hr Insulin Detemir (Levemir) 12 units SC HS [facility] Insulin Human Lispro (Humalog) 0 units SC ACHS [facility] PRN Reason: Protocol Last Admin: 04/08/18 21:32 Dose: 6 unit Insulin Human Lispro (Humalog) 6 units SC AC [facility] Last Admin: 04/08/18 17:04 Dose: 6 u Levetiracetam (Keppra) 500 mg PO Q12 [facility] Last Admin: 04/08/18 21:28 Dose: 500 mg Lisinopril (Zestril) 20 mg PO DAILY [facility] Last Admin: 04/08/18 10:03 Dose: Not Given Magnesium Hydroxide (Milk Of Magnesia) 30 ml PO Q72H PRN PRN Reason: Constipation Nitroglycerin (Nitro-Bid 2% Oint) 1 ea TOP 0400,1000,1600,2200 [facility] Last Admin: 04/08/18 21:31 Dose: 1 ea Pantoprazole Sodium (Protonix Ec Tab) 20 mg PO DAILY [facility] Last Admin: 04/08/18 10:03 Dose: 20 mg Polyethylene Glycol (Miralax) 17 gm PO DAILY [facility] Last Admin: 04/08/18 09:57 Dose: Not Given Pravastatin Sodium (Pravachol) 20 mg PO HS [facility] Last Admin: 04/08/18 21:28 Dose: 20 mg - Labs Labs: 04/08/18 04:20 04/08/18 04:20 PT 11.4 Seconds (9.8-13.1) 04/01/18 08:27 INR 1.0 (0.9-1.2) 04/01/18 08:27 APTT 33.6 Seconds (25.6-37.1) 04/01/18 08:27 Assessment and Plan (1) Chest pain Status: Acute
--- NOTE | 2018-04-08 23:57 | CP.PCM.PN ---
Subjective - Date & Time of Evaluation Date of Evaluation: 04/07/18 Time of Evaluation: 17:00 Objective - Vital Signs/Intake and Output Vital Signs (last 24 hours): Temp Pulse Resp BP Pulse Ox 98.9 F 77 20 153/83 H 99 04/08/18 19:44 04/08/18 21:31 04/08/18 19:44 04/08/18 21:31 04/08/18 19:44 - Medications Medications: Current Medications Acetaminophen (Tylenol 325mg Tab) 650 mg PO Q6 PRN PRN Reason: Temp above 101 Last Admin: 04/08/18 02:49 Dose: 650 mg Acetaminophen (Tylenol 325mg Tab) 650 mg PO Q6 PRN PRN Reason: Pain, Mild (1-3) Last Admin: 04/07/18 06:30 Dose: 650 mg Al Hydrox/Mg Hydrox/Simethicone (Maalox Plus 30 Ml) 30 ml PO Q4 PRN PRN Reason: Indigestion / Heartburn Last Admin: 04/02/18 15:45 Dose: 30 ml Carbidopa/Levodopa (Sinemet) 2 tab PO Q6 [facility] Last Admin: 04/08/18 21:27 Dose: 2 tab Carvedilol (Coreg) 25 mg PO Q12 [facility] Last Admin: 04/08/18 21:28 Dose: 25 mg Clonidine HCl (Catapres) 0.2 mg PO HS [facility] Last Admin: 04/08/18 21:27 Dose: 0.2 mg Dextrose (Dextrose 50% Inj) 0 ml IV STAT PRN; Protocol PRN Reason: Hypoglycemia Protocol Last Admin: 04/05/18 09:24 Dose: 50 ml Dextrose (Glutose 15) 0 gm PO ONCE PRN; Protocol PRN Reason: Hypoglycemia Protocol Dicyclomine HCl (Bentyl) 10 mg PO Q4 PRN PRN Reason: abdominal discomfort Last Admin: 04/02/18 15:45 Dose: 10 mg Duloxetine HCl (Cymbalta) 60 mg PO HS [facility] Last Admin: 04/08/18 21:28 Dose: 60 mg Ferrous Sulfate (Feosol) 325 mg PO QPM [facility] Last Admin: 04/08/18 17:06 Dose: 325 mg Gabapentin (Neurontin) 100 mg PO Q8 [facility] Last Admin: 04/08/18 17:05 Dose: 100 mg Glucagon (Glucagen Diagnostic Kit) 0 mg IM STAT PRN; Protocol PRN Reason: Hypoglycemia Protocol Ceftriaxone Sodium 1 gm/ (Sodium Chloride) 100 mls @ 100 mls/hr IVPB DAILY [facility] PRN Reason: Protocol Last Admin: 04/08/18 11:58 Dose: 100 mls/hr Sodium Chloride (Sodium Chloride 0.9%) 1,000 mls @ 100 mls/hr IV .Q10H [facility] Stop: 04/09/18 12:03 Last Admin: 04/08/18 14:02 Dose: 100 mls/hr Insulin Detemir (Levemir) 12 units SC HS [facility] Insulin Human Lispro (Humalog) 0 units SC ACHS [facility] PRN Reason: Protocol Last Admin: 04/08/18 21:32 Dose: 6 unit Insulin Human Lispro (Humalog) 6 units SC AC [facility] Last Admin: 04/08/18 17:04 Dose: 6 u Levetiracetam (Keppra) 500 mg PO Q12 [facility] Last Admin: 04/08/18 21:28 Dose: 500 mg Lisinopril (Zestril) 20 mg PO DAILY [facility] Last Admin: 04/08/18 10:03 Dose: Not Given Magnesium Hydroxide (Milk Of Magnesia) 30 ml PO Q72H PRN PRN Reason: Constipation Nitroglycerin (Nitro-Bid 2% Oint) 1 ea TOP 0400,1000,1600,2200 [facility] Last Admin: 04/08/18 21:31 Dose: 1 ea Pantoprazole Sodium (Protonix Ec Tab) 20 mg PO DAILY [facility] Last Admin: 04/08/18 10:03 Dose: 20 mg Polyethylene Glycol (Miralax) 17 gm PO DAILY [facility] Last Admin: 04/08/18 09:57 Dose: Not Given Pravastatin Sodium (Pravachol) 20 mg PO HS [facility] Last Admin: 04/08/18 21:28 Dose: 20 mg - Labs Labs: 04/08/18 04:20 04/08/18 04:20 PT 11.4 Seconds (9.8-13.1) 04/01/18 08:27 INR 1.0 (0.9-1.2) 04/01/18 08:27 APTT 33.6 Seconds (25.6-37.1) 04/01/18 08:27 Assessment and Plan (1) Chest pain Status: Acute
[2018-04-09] MEDS: Nitroglycerin 2% Ointment Foilpak UD TOP SCH ×4 (04:12→21:54)
[2018-04-09] MEDS: POLYETHYLENE GLYCOL 3350 17 GM/Dose PACKET PO SCH (09:23)
[2018-04-09] MEDS: Sodium Chloride 0.9% 1,000 ML IV SCH (09:25)
[2018-04-09] MEDS: Insulin Lispro (humaLOG) 100 Units/ml Inj SC SCH ×7 (09:26→21:56)
[2018-04-09] MEDS: Pantoprazole 20 mg EC Tab PO SCH (09:28)
[2018-04-09 10:47] LABS: ALBUMIN 2.9 g/dL (3.5-5.0); CALCIUM 8.8 mg/dL (8.4-10.2)
--- NOTE | 2018-04-09 11:14 | CP.PCM.CON ---
History of Present Illness - History of Present Illness History of Present Illness: patient is 62 years of age gentleman was admitted with multiple medical problem related to hypertension chest pain patient also diabetic with blood sugar was elevated and later on he developed hypoglycemia and subsequently reviewed that he developed seizures I was called to see the patient for abnormal kidney function and rising creatinine. Was noted serum creatinine baseline about 1.7 approximately. Patient perhaps has history of chronic kidney disease Past medical history as noted above Hypertension Parkinsonian diabetes mellitus Review of Systems - Constitutional Constitutional: absent: Chills - Cardiovascular Cardiovascular: absent: Acrocyanosis - Respiratory Respiratory: absent: Cough, Hemoptysis - Gastrointestinal Gastrointestinal: absent: Abdominal Pain - Musculoskeletal Musculoskeletal: absent: Abnormal Gait - Psychiatric Psychiatric: As Per HPI - Endocrine Endocrine: Fatigue - Hematologic/Lymphatic Hematologic: absent: Easy Bleeding Past Patient History - Infectious Disease Hx of Infectious Diseases: None - Past Medical History & Family History Past Medical History?: Yes - Past Social History Smoking Status: Unknown If Ever Smoked Alcohol: None Drugs: Denies Home Situation {Lives}: Retirement - CARDIAC Hx Cardiac Disorders: Yes Hx Hypercholesterolemia: Yes Hx Hypertension: Yes - PULMONARY Hx Respiratory Disorders: Yes Hx Asthma: Yes - NEUROLOGICAL Hx Neurological Disorder: Yes Hx Dementia: Yes Hx Parkinson's Disease: Yes Hx Seizures: Yes - HEENT Hx HEENT Problems: No - RENAL Hx Chronic Kidney Disease: Yes Hx Renal Failure: Yes - ENDOCRINE/METABOLIC Hx Endocrine Disorders: Yes Hx Diabetes Mellitus Type 1: Yes - HEMATOLOGICAL/ONCOLOGICAL Hx Blood Disorders: No - INTEGUMENTARY Hx Dermatological Problems: No - MUSCULOSKELETAL/RHEUMATOLOGICAL Hx Musculoskeletal Disorders: No Hx Falls: No - GASTROINTESTINAL Hx Gastrointestinal Disorders: Yes Hx Clostridium Difficile: Yes - GENITOURINARY/GYNECOLOGICAL Hx Genitourinary Disorders: No - PSYCHIATRIC Hx Psychophysiologic Disorder: Yes Hx Depression: Yes Hx Substance Use: No - SURGICAL HISTORY Hx Surgeries: No - ANESTHESIA Hx Anesthesia: No Meds Allergies/Adverse Reactions: Allergies Allergy/AdvReac Type Severity Reaction Status Date / Time No Known Allergies Allergy Verified 04/04/18 10:32 - Medications Medications: Current Medications Acetaminophen (Tylenol 325mg Tab) 650 mg PO Q6 PRN PRN Reason: Temp above 101 Last Admin: 04/08/18 02:49 Dose: 650 mg Acetaminophen (Tylenol 325mg Tab) 650 mg PO Q6 PRN PRN Reason: Pain, Mild (1-3) Last Admin: 04/07/18 06:30 Dose: 650 mg Al Hydrox/Mg Hydrox/Simethicone (Maalox Plus 30 Ml) 30 ml PO Q4 PRN PRN Reason: Indigestion / Heartburn Last Admin: 04/02/18 15:45 Dose: 30 ml Carbidopa/Levodopa (Sinemet) 2 tab PO Q6 [facility] Last Admin: 04/09/18 09:25 Dose: 2 tab Carvedilol (Coreg) 25 mg PO Q12 [facility] Last Admin: 04/09/18 09:23 Dose: 25 mg Clonidine HCl (Catapres) 0.2 mg PO HS [facility] Last Admin: 04/08/18 21:27 Dose: 0.2 mg Dextrose (Dextrose 50% Inj) 0 ml IV STAT PRN; Protocol PRN Reason: Hypoglycemia Protocol Last Admin: 04/05/18 09:24 Dose: 50 ml Dextrose (Glutose 15) 0 gm PO ONCE PRN; Protocol PRN Reason: Hypoglycemia Protocol Dicyclomine HCl (Bentyl) 10 mg PO Q4 PRN PRN Reason: abdominal discomfort Last Admin: 04/02/18 15:45 Dose: 10 mg Duloxetine HCl (Cymbalta) 60 mg PO HS [facility] Last Admin: 04/08/18 21:28 Dose: 60 mg Ferrous Sulfate (Feosol) 325 mg PO QPM [facility] Last Admin: 04/08/18 17:06 Dose: 325 mg Gabapentin (Neurontin) 100 mg PO Q8 [facility] Last Admin: 04/09/18 09:23 Dose: 100 mg Glucagon (Glucagen Diagnostic Kit) 0 mg IM STAT PRN; Protocol PRN Reason: Hypoglycemia Protocol Ceftriaxone Sodium 1 gm/ (Sodium Chloride) 100 mls @ 100 mls/hr IVPB DAILY [facility] PRN Reason: Protocol Last Admin: 04/09/18 09:22 Dose: 100 mls/hr Sodium Chloride (Sodium Chloride 0.9%) 1,000 mls @ 100 mls/hr IV .Q10H [facility] Stop: 04/09/18 12:03 Last Admin: 04/09/18 09:25 Dose: 100 mls/hr Insulin Detemir (Levemir) 12 units SC HS [facility] Insulin Human Lispro (Humalog) 0 units SC ACHS [facility] PRN Reason: Protocol Last Admin: 04/09/18 09:27 Dose: Not Given Insulin Human Lispro (Humalog) 6 units SC AC [facility] Last Admin: 04/09/18 09:26 Dose: 6 u Levetiracetam (Keppra) 500 mg PO Q12 [facility] Last Admin: 04/09/18 09:23 Dose: 500 mg Lisinopril (Zestril) 20 mg PO DAILY [facility] Last Admin: 04/08/18 10:03 Dose: Not Given Magnesium Hydroxide (Milk Of Magnesia) 30 ml PO Q72H PRN PRN Reason: Constipation Nitroglycerin (Nitro-Bid 2% Oint) 1 ea TOP 0400,1000,1600,2200 [facility] Last Admin: 04/09/18 04:12 Dose: 1 ea Pantoprazole Sodium (Protonix Ec Tab) 20 mg PO DAILY [facility] Last Admin: 04/09/18 09:28 Dose: 20 mg Polyethylene Glycol (Miralax) 17 gm PO DAILY [facility] Last Admin: 04/09/18 09:23 Dose: Not Given Pravastatin Sodium (Pravachol) 20 mg PO HS [facility] Last Admin: 04/08/18 21:28 Dose: 20 mg Physical Exam - Constitutional Appears: No Acute Distress - ENT Exam ENT Exam: Mucous Membranes Moist - Neck Exam Neck exam: Negative for: Lymphadenopathy - Respiratory Exam Respiratory Exam: NORMAL BREATHING PATTERN. absent: Chest Wall Tenderness - Cardiovascular Exam Cardiovascular Exam: absent: Gallop, JVD, Rubs - GI/Abdominal Exam GI & Abdominal Exam: Normal Bowel Sounds - Extremities Exam Extremities exam: Negative for: calf tenderness - Back Exam Back exam: absent: CVA tenderness (L), CVA tenderness (R) - Neurological Exam Neurological exam: Altered - Psychiatric Exam Psychiatric exam: Anxious - Skin Skin Exam: Intact Results - Vital Signs Recent Vital Signs: Last Vital Signs Temp 97.9 F 04/09/18 08:00 Pulse 65 04/09/18 09:23 Resp 18 04/09/18 08:00 BP 116/65 04/09/18 09:23 Pulse Ox 100 04/09/18 08:00 - Labs Result Diagrams: 04/08/18 04:20 04/09/18 09:40 Labs: Laboratory Results - last 24 hr 04/08/18 04/08/18 04/08/18 11:26 16:51 18:43 Sodium Potassium Chloride Carbon Dioxide Anion Gap BUN Creatinine Est GFR ( Amer) Est GFR (Non-Af Amer) POC Glucose (mg/dL) 193 H 433 H* > 500 H* Random Glucose Calcium Total Bilirubin AST ALT Alkaline Phosphatase Total Protein Albumin Globulin Albumin/Globulin Ratio Ur Random Sodium Ur Random Potassium 04/08/18 04/08/18 04/09/18 19:30 21:22 09:40 Sodium 141 Potassium 4.2 Chloride 106 Carbon Dioxide 25 Anion Gap 14 BUN 24 H Creatinine 1.8 H Est GFR ( Amer) 46 Est GFR (Non-Af Amer) 38 POC Glucose (mg/dL) 417 H* Random Glucose 258 H Calcium 8.8 Total Bilirubin 0.5 AST 19 ALT 13 L D Alkaline Phosphatase 74 Total Protein 5.8 L Albumin 2.9 L Globulin 2.9 Albumin/Globulin Ratio 1.0 Ur Random Sodium 81 Ur Random Potassium 20.0 Assessment & Plan (1) KANDI (acute kidney injury) Assessment and Plan: patient appears to have acute kidney injury superimposed on chronic kidney disease. His baseline serum creatinine around 1.7 and this admissions. Most likely related to dehydration patient admitted with severe hyperglycemia and perhaps that might have caused dehydration without adequate intravenous hydration glycemic control needed Continue to monitoring kidney function appears to be improving on hydration. Status: Acute (2) Hyperglycemia Status: Acute Priority: High (3) Parkinsons Status: Acute (4) Alzheimer disease Status: Chronic Priority: High
--- NOTE | 2018-04-09 13:51 | CP.PCM.PN ---
Subjective - Date & Time of Evaluation Date of Evaluation: 04/09/18 Time of Evaluation: 13:50 - Subjective Subjective: intermittent cp Objective - Vital Signs/Intake and Output Vital Signs (last 24 hours): Temp Pulse Resp BP Pulse Ox 98.1 F 75 20 103/67 98 04/09/18 12:38 04/09/18 12:38 04/09/18 12:38 04/09/18 12:38 04/09/18 12:38 - Medications Medications: Current Medications Acetaminophen (Tylenol 325mg Tab) 650 mg PO Q6 PRN PRN Reason: Temp above 101 Last Admin: 04/08/18 02:49 Dose: 650 mg Acetaminophen (Tylenol 325mg Tab) 650 mg PO Q6 PRN PRN Reason: Pain, Mild (1-3) Last Admin: 04/07/18 06:30 Dose: 650 mg Al Hydrox/Mg Hydrox/Simethicone (Maalox Plus 30 Ml) 30 ml PO Q4 PRN PRN Reason: Indigestion / Heartburn Last Admin: 04/02/18 15:45 Dose: 30 ml Carbidopa/Levodopa (Sinemet) 2 tab PO Q6 [facility] Last Admin: 04/09/18 09:25 Dose: 2 tab Carvedilol (Coreg) 25 mg PO Q12 [facility] Last Admin: 04/09/18 09:23 Dose: 25 mg Clonidine HCl (Catapres) 0.2 mg PO HS [facility] Last Admin: 04/08/18 21:27 Dose: 0.2 mg Dextrose (Dextrose 50% Inj) 0 ml IV STAT PRN; Protocol PRN Reason: Hypoglycemia Protocol Last Admin: 04/05/18 09:24 Dose: 50 ml Dextrose (Glutose 15) 0 gm PO ONCE PRN; Protocol PRN Reason: Hypoglycemia Protocol Dicyclomine HCl (Bentyl) 10 mg PO Q4 PRN PRN Reason: abdominal discomfort Last Admin: 04/02/18 15:45 Dose: 10 mg Duloxetine HCl (Cymbalta) 60 mg PO HS [facility] Last Admin: 04/08/18 21:28 Dose: 60 mg Ferrous Sulfate (Feosol) 325 mg PO QPM [facility] Last Admin: 04/08/18 17:06 Dose: 325 mg Gabapentin (Neurontin) 100 mg PO Q8 [facility] Last Admin: 04/09/18 09:23 Dose: 100 mg Glucagon (Glucagen Diagnostic Kit) 0 mg IM STAT PRN; Protocol PRN Reason: Hypoglycemia Protocol Ceftriaxone Sodium 1 gm/ (Sodium Chloride) 100 mls @ 100 mls/hr IVPB DAILY [facility] PRN Reason: Protocol Last Admin: 04/09/18 09:22 Dose: 100 mls/hr Insulin Detemir (Levemir) 12 units SC HS [facility] Insulin Human Lispro (Humalog) 0 units SC ACHS [facility] PRN Reason: Protocol Last Admin: 04/09/18 12:07 Dose: Not Given Insulin Human Lispro (Humalog) 6 units SC AC [facility] Last Admin: 04/09/18 09:26 Dose: 6 u Levetiracetam (Keppra) 500 mg PO Q12 [facility] Last Admin: 04/09/18 09:23 Dose: 500 mg Lisinopril (Zestril) 20 mg PO DAILY [facility] Last Admin: 04/08/18 10:03 Dose: Not Given Magnesium Hydroxide (Milk Of Magnesia) 30 ml PO Q72H PRN PRN Reason: Constipation Nitroglycerin (Nitro-Bid 2% Oint) 1 ea TOP 0400,1000,1600,2200 [facility] Last Admin: 04/09/18 12:10 Dose: 1 ea Pantoprazole Sodium (Protonix Ec Tab) 20 mg PO DAILY [facility] Last Admin: 04/09/18 09:28 Dose: 20 mg Polyethylene Glycol (Miralax) 17 gm PO DAILY [facility] Last Admin: 04/09/18 09:23 Dose: Not Given Pravastatin Sodium (Pravachol) 20 mg PO HS [facility] Last Admin: 04/08/18 21:28 Dose: 20 mg - Labs Labs: 04/08/18 04:20 04/09/18 09:40 PT 11.4 Seconds (9.8-13.1) 04/01/18 08:27 INR 1.0 (0.9-1.2) 04/01/18 08:27 APTT 33.6 Seconds (25.6-37.1) 04/01/18 08:27 - Constitutional Appears: Well - Head Exam Head Exam: ATRAUMATIC, NORMAL INSPECTION, NORMOCEPHALIC - Eye Exam Eye Exam: EOMI, Normal appearance, PERRL Pupil Exam: NORMAL ACCOMODATION, PERRL - ENT Exam ENT Exam: Mucous Membranes Moist, Normal Exam - Neck Exam Neck Exam: Full ROM, Normal Inspection. absent: Lymphadenopathy - Respiratory Exam Respiratory Exam: Clear to Ausculation Bilateral, NORMAL BREATHING PATTERN - Cardiovascular Exam Cardiovascular Exam: REGULAR RHYTHM, +S1, +S2. absent: Murmur - GI/Abdominal Exam GI & Abdominal Exam: Soft, Normal Bowel Sounds. absent: Tenderness - Extremities Exam Extremities Exam: Full ROM, Normal Capillary Refill, Normal Inspection. absent : Joint Swelling, Pedal Edema - Back Exam Back Exam: NORMAL INSPECTION - Neurological Exam Neurological Exam: Alert, Awake, CN II-XII Intact, Normal Gait, Oriented x3 - Psychiatric Exam Psychiatric exam: Normal Affect, Normal Mood - Skin Skin Exam: Dry, Intact, Normal Color, Warm Assessment and Plan (1) Chest pain Status: Acute (2) KANDI (acute kidney injury) Status: Acute (3) UTI (urinary tract infection) Status: Acute (4) HTN (hypertension) Status: Chronic
--- NOTE | 2018-04-09 15:13 | CP.PCM.PN ---
Subjective - Date & Time of Evaluation Date of Evaluation: 04/09/18 Time of Evaluation: 13:25 - Subjective Subjective: F/U CP. No A/D, no CP, no SOB. Objective - Vital Signs/Intake and Output Vital Signs (last 24 hours): Temp Pulse Resp BP Pulse Ox 98.1 F 75 20 103/67 98 04/09/18 12:38 04/09/18 12:38 04/09/18 12:38 04/09/18 12:38 04/09/18 12:38 - Medications Medications: Current Medications Acetaminophen (Tylenol 325mg Tab) 650 mg PO Q6 PRN PRN Reason: Temp above 101 Last Admin: 04/08/18 02:49 Dose: 650 mg Acetaminophen (Tylenol 325mg Tab) 650 mg PO Q6 PRN PRN Reason: Pain, Mild (1-3) Last Admin: 04/07/18 06:30 Dose: 650 mg Al Hydrox/Mg Hydrox/Simethicone (Maalox Plus 30 Ml) 30 ml PO Q4 PRN PRN Reason: Indigestion / Heartburn Last Admin: 04/02/18 15:45 Dose: 30 ml Carbidopa/Levodopa (Sinemet) 2 tab PO Q6 [facility] Last Admin: 04/09/18 09:25 Dose: 2 tab Carvedilol (Coreg) 25 mg PO Q12 [facility] Last Admin: 04/09/18 09:23 Dose: 25 mg Clonidine HCl (Catapres) 0.2 mg PO HS [facility] Last Admin: 04/08/18 21:27 Dose: 0.2 mg Dextrose (Dextrose 50% Inj) 0 ml IV STAT PRN; Protocol PRN Reason: Hypoglycemia Protocol Last Admin: 04/05/18 09:24 Dose: 50 ml Dextrose (Glutose 15) 0 gm PO ONCE PRN; Protocol PRN Reason: Hypoglycemia Protocol Dicyclomine HCl (Bentyl) 10 mg PO Q4 PRN PRN Reason: abdominal discomfort Last Admin: 04/02/18 15:45 Dose: 10 mg Duloxetine HCl (Cymbalta) 60 mg PO HS [facility] Last Admin: 04/08/18 21:28 Dose: 60 mg Ferrous Sulfate (Feosol) 325 mg PO QPM [facility] Last Admin: 04/08/18 17:06 Dose: 325 mg Gabapentin (Neurontin) 100 mg PO Q8 [facility] Last Admin: 04/09/18 09:23 Dose: 100 mg Glucagon (Glucagen Diagnostic Kit) 0 mg IM STAT PRN; Protocol PRN Reason: Hypoglycemia Protocol Ceftriaxone Sodium 1 gm/ (Sodium Chloride) 100 mls @ 100 mls/hr IVPB DAILY [facility] PRN Reason: Protocol Last Admin: 04/09/18 09:22 Dose: 100 mls/hr Insulin Detemir (Levemir) 14 units SC HS [facility] Insulin Human Lispro (Humalog) 0 units SC ACHS [facility] PRN Reason: Protocol Last Admin: 04/09/18 12:07 Dose: Not Given Insulin Human Lispro (Humalog) 8 units SC AC [facility] Levetiracetam (Keppra) 500 mg PO Q12 [facility] Last Admin: 04/09/18 09:23 Dose: 500 mg Lisinopril (Zestril) 20 mg PO DAILY [facility] Last Admin: 04/08/18 10:03 Dose: Not Given Magnesium Hydroxide (Milk Of Magnesia) 30 ml PO Q72H PRN PRN Reason: Constipation Nitroglycerin (Nitro-Bid 2% Oint) 1 ea TOP 0400,1000,1600,2200 [facility] Last Admin: 04/09/18 12:10 Dose: 1 ea Pantoprazole Sodium (Protonix Ec Tab) 20 mg PO DAILY [facility] Last Admin: 04/09/18 09:28 Dose: 20 mg Polyethylene Glycol (Miralax) 17 gm PO DAILY [facility] Last Admin: 04/09/18 09:23 Dose: Not Given Pravastatin Sodium (Pravachol) 20 mg PO HS [facility] Last Admin: 04/08/18 21:28 Dose: 20 mg - Labs Labs: 04/08/18 04:20 04/09/18 09:40 PT 11.4 Seconds (9.8-13.1) 04/01/18 08:27 INR 1.0 (0.9-1.2) 04/01/18 08:27 APTT 33.6 Seconds (25.6-37.1) 04/01/18 08:27 - Constitutional Appears: No Acute Distress, Chronically Ill - Head Exam Head Exam: NORMAL INSPECTION - Eye Exam Eye Exam: PERRL - ENT Exam ENT Exam: Normal Exam - Neck Exam Neck Exam: Normal Inspection - Respiratory Exam Respiratory Exam: Clear to Ausculation Bilateral - Cardiovascular Exam Cardiovascular Exam: REGULAR RHYTHM - GI/Abdominal Exam GI & Abdominal Exam: Soft, Normal Bowel Sounds - Extremities Exam Extremities Exam: Normal Inspection - Back Exam Back Exam: NORMAL INSPECTION - Neurological Exam Neurological Exam: Awake Additional comments: Answer simple questions at times with vague response, cogwheel rigidity, mild tremors upper extremities. - Psychiatric Exam Psychiatric exam: Anxious - Skin Skin Exam: Warm Assessment and Plan (1) Chest pain Status: Acute (2) Hyperglycemia Status: Acute (3) DM I (diabetes mellitus, type I) Status: Chronic (4) HTN (hypertension) Status: Chronic (5) Alzheimer disease Status: Chronic (6) Dementia Status: Chronic (7) Parkinsons Status: Acute (8) Seizure Status: Chronic (9) Anxiety Status: Acute (10) Depression Status: Chronic (11) UTI (urinary tract infection) Status: Acute (12) KANDI (acute kidney injury) Status: Acute (13) CKD (chronic kidney disease) Status: Acute - Assessment and Plan (Free Text) Plan: Continue Rocephin, Keppra, Sinemet, Insulin, Coreg, Catapres and rest of of medications, for cardiac cath tomorrow. Renal consult appreciated.
[2018-04-09] MEDS: Pravastatin Sodium 20 MG TAB PO SCH (21:53)
[2018-04-09] MEDS ORDERED: Insulin Detemir 100 Units/ml Inj SC SCH ×2 (22:00)
--- NOTE | 2018-04-09 23:58 | PN ---
Copied To: Mercy Trujillo MD Attending MD: Mercy Trujillo MD DATE: 04/09/2018 ENDO FOLLOWUP NOTE LOCATION: Room 413 SUBJECTIVE: This is a 62-year-old male with recent uncontrolled type 2 insulin-requiring diabetes presenting here with extremes of glycemic fluctuations and is now being followed closely for diabetic management. He initially presented here with extremes of glycemic fluctuation with symptomatic hypoglycemia and associated neuroglycopenic and hyperadrenergic manifestations of the same. He was placed on dextrose infusion with supervening hyperglycemic accelerations as noted thereof. With the variability of his oral intake, he has had episodic bouts of hypoglycemic levels that have improved as noted overnight. His latest glucose levels today have ranged from 243 to 268 and 285 mg/dL. It was 417 at bedtime last night, and it was over 500 at dinnertime last night as noted. LABORATORY DATA: His chemistry showed BUN of 24, sodium 141, potassium 4.2, chloride 106, CO2 of 25, glucose 258, and creatinine 1.8. ASSESSMENT AND PLAN: So, at this time, we will modify once again his basal and bolus insulin regimen and lower the Levemir to 10 units subcutaneously at bedtime daily to start tonight. We will also modify his Humalog to a higher dosing of 8 units subcutaneously three times a day before meals to start today. We will titrate incrementally as indicated to optimize metabolic control. We will obtain serial chemistries and supplement accordingly as needed. We will follow. Mercy Trujillo MD
[2018-04-10] MEDS: Nitroglycerin 2% Ointment Foilpak UD TOP SCH ×3 (03:36→21:30)
[2018-04-10 06:27] LABS: HEMOGLOBIN 9.5 g/dL (12.0-18.0); MEAN CELL VOLUME 94.4 fl (80.0-94.0); MEAN CORPUSCULAR HEMOGLOBIN 30.6 pg (27.0-31.0); MEAN CORPUSCULAR HGB CONC 32.4 g/dL (33.0-37.0); RBC 3.11 Mil/uL (4.40-5.90); RED CELL DISTRIBUTION WIDTH 15.3 % (11.5-14.5); WHITE BLOOD COUNT 3.2 K/uL (4.8-10.8)
[2018-04-10] MEDS: Insulin Lispro (humaLOG) 100 Units/ml Inj SC SCH ×5 (06:41→21:15)
[2018-04-10 06:44] LABS: CALCIUM 8.7 mg/dL (8.4-10.2)
[2018-04-10] MEDS: POLYETHYLENE GLYCOL 3350 17 GM/Dose PACKET PO SCH (08:35)
[2018-04-10] MEDS: Pantoprazole 20 mg EC Tab PO SCH (08:36)
--- NOTE | 2018-04-10 09:42 | CP.PCM.PN ---
Subjective - Date & Time of Evaluation Date of Evaluation: 04/10/18 Time of Evaluation: 09:40 - Subjective Subjective: Patient awake and conscious not in acute distress Vital signs stable Objective - Vital Signs/Intake and Output Vital Signs (last 24 hours): Temp Pulse Resp BP Pulse Ox 97.7 F 60 20 149/83 99 04/10/18 08:16 04/10/18 08:33 04/10/18 08:16 04/10/18 08:33 04/10/18 08:16 - Medications Medications: Current Medications Acetaminophen (Tylenol 325mg Tab) 650 mg PO Q6 PRN PRN Reason: Temp above 101 Last Admin: 04/08/18 02:49 Dose: 650 mg Acetaminophen (Tylenol 325mg Tab) 650 mg PO Q6 PRN PRN Reason: Pain, Mild (1-3) Last Admin: 04/09/18 23:22 Dose: 650 mg Al Hydrox/Mg Hydrox/Simethicone (Maalox Plus 30 Ml) 30 ml PO Q4 PRN PRN Reason: Indigestion / Heartburn Last Admin: 04/02/18 15:45 Dose: 30 ml Carbidopa/Levodopa (Sinemet) 2 tab PO Q6 [facility] Last Admin: 04/10/18 08:37 Dose: 2 tab Carvedilol (Coreg) 25 mg PO Q12 [facility] Last Admin: 04/10/18 08:33 Dose: 25 mg Clonidine HCl (Catapres) 0.2 mg PO HS [facility] Last Admin: 04/09/18 21:53 Dose: 0.2 mg Dextrose (Dextrose 50% Inj) 0 ml IV STAT PRN; Protocol PRN Reason: Hypoglycemia Protocol Last Admin: 04/05/18 09:24 Dose: 50 ml Dextrose (Glutose 15) 0 gm PO ONCE PRN; Protocol PRN Reason: Hypoglycemia Protocol Dicyclomine HCl (Bentyl) 10 mg PO Q4 PRN PRN Reason: abdominal discomfort Last Admin: 04/02/18 15:45 Dose: 10 mg Duloxetine HCl (Cymbalta) 60 mg PO HS [facility] Last Admin: 04/09/18 21:53 Dose: 60 mg Ferrous Sulfate (Feosol) 325 mg PO QPM [facility] Last Admin: 04/09/18 21:54 Dose: 325 mg Gabapentin (Neurontin) 100 mg PO Q8 [facility] Last Admin: 04/10/18 08:36 Dose: 100 mg Glucagon (Glucagen Diagnostic Kit) 0 mg IM STAT PRN; Protocol PRN Reason: Hypoglycemia Protocol Ceftriaxone Sodium 1 gm/ (Sodium Chloride) 100 mls @ 100 mls/hr IVPB DAILY [facility] PRN Reason: Protocol Last Admin: 04/10/18 08:42 Dose: 100 mls/hr Insulin Detemir (Levemir) 14 units SC HS [facility] Insulin Human Lispro (Humalog) 0 units SC ACHS [facility] PRN Reason: Protocol Last Admin: 04/10/18 06:41 Dose: Not Given Insulin Human Lispro (Humalog) 8 units SC AC [facility] Last Admin: 04/10/18 08:34 Dose: Not Given Levetiracetam (Keppra) 500 mg PO Q12 [facility] Last Admin: 04/10/18 08:34 Dose: 500 mg Lisinopril (Zestril) 20 mg PO DAILY [facility] Last Admin: 04/08/18 10:03 Dose: Not Given Magnesium Hydroxide (Milk Of Magnesia) 30 ml PO Q72H PRN PRN Reason: Constipation Nitroglycerin (Nitro-Bid 2% Oint) 1 ea TOP 0400,1000,1600,2200 [facility] Last Admin: 04/10/18 03:36 Dose: 1 ea Pantoprazole Sodium (Protonix Ec Tab) 20 mg PO DAILY [facility] Last Admin: 04/10/18 08:36 Dose: 20 mg Polyethylene Glycol (Miralax) 17 gm PO DAILY [facility] Last Admin: 04/10/18 08:35 Dose: Not Given Pravastatin Sodium (Pravachol) 20 mg PO [facility] Last Admin: 04/09/18 21:53 Dose: 20 mg - Labs Labs: 04/10/18 05:40 04/10/18 05:40 PT 11.4 Seconds (9.8-13.1) 04/01/18 08:27 INR 1.0 (0.9-1.2) 04/01/18 08:27 APTT 33.6 Seconds (25.6-37.1) 04/01/18 08:27 - Constitutional Appears: No Acute Distress - Eye Exam Eye Exam: Conjunctival injection - ENT Exam ENT Exam: Mucous Membranes Moist - Neck Exam Neck Exam: absent: Lymphadenopathy - Respiratory Exam Respiratory Exam: NORMAL BREATHING PATTERN. absent: Chest Wall Tenderness, Rales - Cardiovascular Exam Cardiovascular Exam: Gallop, JVD, Rubs - GI/Abdominal Exam GI & Abdominal Exam: Soft, Normal Bowel Sounds - Extremities Exam Extremities Exam: absent: Calf Tenderness - Back Exam Back Exam: absent: CVA tenderness (L), CVA tenderness (R) - Neurological Exam Neurological Exam: Alert - Psychiatric Exam Psychiatric exam: Normal Affect - Skin Skin Exam: absent: Cyanosis Assessment and Plan (1) KANDI (acute kidney injury) Assessment & Plan: acute kidney injury appears to be improving serum creatinine coming down Vital signs stable Continue monitoring Status: Acute (2) Hyperglycemia Status: Acute (3) Parkinsons Status: Acute (4) Alzheimer disease Status: Chronic
--- NOTE | 2018-04-10 10:05 | CP.PCM.PN ---
Subjective - Date & Time of Evaluation Date of Evaluation: 04/10/18 Time of Evaluation: 10:05 - Subjective Subjective: Cr back to baseline 1.7 plan for LHCx today for recurrent episodes of CP and EKG changes Objective - Vital Signs/Intake and Output Vital Signs (last 24 hours): Temp Pulse Resp BP Pulse Ox 97.7 F 60 20 149/83 99 04/10/18 08:16 04/10/18 08:33 04/10/18 08:16 04/10/18 08:33 04/10/18 08:16 - Medications Medications: Current Medications Acetaminophen (Tylenol 325mg Tab) 650 mg PO Q6 PRN PRN Reason: Temp above 101 Last Admin: 04/08/18 02:49 Dose: 650 mg Acetaminophen (Tylenol 325mg Tab) 650 mg PO Q6 PRN PRN Reason: Pain, Mild (1-3) Last Admin: 04/09/18 23:22 Dose: 650 mg Al Hydrox/Mg Hydrox/Simethicone (Maalox Plus 30 Ml) 30 ml PO Q4 PRN PRN Reason: Indigestion / Heartburn Last Admin: 04/02/18 15:45 Dose: 30 ml Carbidopa/Levodopa (Sinemet) 2 tab PO Q6 [facility] Last Admin: 04/10/18 08:37 Dose: 2 tab Carvedilol (Coreg) 25 mg PO Q12 [facility] Last Admin: 04/10/18 08:33 Dose: 25 mg Clonidine HCl (Catapres) 0.2 mg PO HS [facility] Last Admin: 04/09/18 21:53 Dose: 0.2 mg Dextrose (Dextrose 50% Inj) 0 ml IV STAT PRN; Protocol PRN Reason: Hypoglycemia Protocol Last Admin: 04/05/18 09:24 Dose: 50 ml Dextrose (Glutose 15) 0 gm PO ONCE PRN; Protocol PRN Reason: Hypoglycemia Protocol Dicyclomine HCl (Bentyl) 10 mg PO Q4 PRN PRN Reason: abdominal discomfort Last Admin: 04/02/18 15:45 Dose: 10 mg Duloxetine HCl (Cymbalta) 60 mg PO HS [facility] Last Admin: 04/09/18 21:53 Dose: 60 mg Ferrous Sulfate (Feosol) 325 mg PO QPM [facility] Last Admin: 04/09/18 21:54 Dose: 325 mg Gabapentin (Neurontin) 100 mg PO Q8 [facility] Last Admin: 04/10/18 08:36 Dose: 100 mg Glucagon (Glucagen Diagnostic Kit) 0 mg IM STAT PRN; Protocol PRN Reason: Hypoglycemia Protocol Ceftriaxone Sodium 1 gm/ (Sodium Chloride) 100 mls @ 100 mls/hr IVPB DAILY [facility] PRN Reason: Protocol Last Admin: 04/10/18 08:42 Dose: 100 mls/hr Insulin Detemir (Levemir) 14 units SC HS [facility] Insulin Human Lispro (Humalog) 0 units SC ACHS [facility] PRN Reason: Protocol Last Admin: 04/10/18 06:41 Dose: Not Given Insulin Human Lispro (Humalog) 8 units SC AC [facility] Last Admin: 04/10/18 08:34 Dose: Not Given Levetiracetam (Keppra) 500 mg PO Q12 [facility] Last Admin: 04/10/18 08:34 Dose: 500 mg Lisinopril (Zestril) 20 mg PO DAILY [facility] Last Admin: 04/08/18 10:03 Dose: Not Given Magnesium Hydroxide (Milk Of Magnesia) 30 ml PO Q72H PRN PRN Reason: Constipation Nitroglycerin (Nitro-Bid 2% Oint) 1 ea TOP 0400,1000,1600,2200 [facility] Last Admin: 04/10/18 03:36 Dose: 1 ea Pantoprazole Sodium (Protonix Ec Tab) 20 mg PO DAILY [facility] Last Admin: 04/10/18 08:36 Dose: 20 mg Polyethylene Glycol (Miralax) 17 gm PO DAILY [facility] Last Admin: 04/10/18 08:35 Dose: Not Given Pravastatin Sodium (Pravachol) 20 mg PO [facility] Last Admin: 04/09/18 21:53 Dose: 20 mg - Labs Labs: 04/10/18 05:40 04/10/18 05:40 PT 11.4 Seconds (9.8-13.1) 04/01/18 08:27 INR 1.0 (0.9-1.2) 04/01/18 08:27 APTT 33.6 Seconds (25.6-37.1) 04/01/18 08:27 - Constitutional Appears: Well - Head Exam Head Exam: ATRAUMATIC, NORMAL INSPECTION, NORMOCEPHALIC - Eye Exam Eye Exam: EOMI, Normal appearance, PERRL Pupil Exam: NORMAL ACCOMODATION, PERRL - ENT Exam ENT Exam: Mucous Membranes Moist, Normal Exam - Neck Exam Neck Exam: Full ROM, Normal Inspection. absent: Lymphadenopathy - Respiratory Exam Respiratory Exam: Clear to Ausculation Bilateral, NORMAL BREATHING PATTERN - Cardiovascular Exam Cardiovascular Exam: REGULAR RHYTHM, +S1, +S2. absent: Murmur - GI/Abdominal Exam GI & Abdominal Exam: Soft, Normal Bowel Sounds. absent: Tenderness - Extremities Exam Extremities Exam: Full ROM, Normal Capillary Refill, Normal Inspection. absent : Joint Swelling, Pedal Edema - Back Exam Back Exam: NORMAL INSPECTION - Neurological Exam Neurological Exam: Alert, Awake, CN II-XII Intact, Oriented x3 - Psychiatric Exam Psychiatric exam: Normal Affect, Normal Mood - Skin Skin Exam: Dry, Intact, Normal Color, Warm Assessment and Plan (1) Chest pain Assessment & Plan: abnormal stress test plan for LHCx asa add bb statins Status: Acute (2) KANDI (acute kidney injury) Status: Acute (3) UTI (urinary tract infection) Status: Acute (4) HTN (hypertension) Assessment & Plan: cont with lisinopril dc clonidine add bb Status: Chronic
--- NOTE | 2018-04-10 16:28 | CP.PCM.PN ---
Subjective - Date & Time of Evaluation Date of Evaluation: 04/08/18 Time of Evaluation: 18:30 - Subjective Subjective: no overnight events Objective - Vital Signs/Intake and Output Vital Signs (last 24 hours): Temp Pulse Resp BP Pulse Ox 97.6 F 61 20 170/79 H 100 04/10/18 15:55 04/10/18 15:55 04/10/18 15:55 04/10/18 15:55 04/10/18 15:55 - Medications Medications: Current Medications Acetaminophen (Tylenol 325mg Tab) 650 mg PO Q6 PRN PRN Reason: Temp above 101 Last Admin: 04/08/18 02:49 Dose: 650 mg Acetaminophen (Tylenol 325mg Tab) 650 mg PO Q6 PRN PRN Reason: Pain, Mild (1-3) Last Admin: 04/09/18 23:22 Dose: 650 mg Al Hydrox/Mg Hydrox/Simethicone (Maalox Plus 30 Ml) 30 ml PO Q4 PRN PRN Reason: Indigestion / Heartburn Last Admin: 04/02/18 15:45 Dose: 30 ml Carbidopa/Levodopa (Sinemet) 2 tab PO Q6 [facility] Last Admin: 04/10/18 08:37 Dose: 2 tab Carvedilol (Coreg) 25 mg PO Q12 [facility] Last Admin: 04/10/18 08:33 Dose: 25 mg Clonidine HCl (Catapres) 0.2 mg PO HS [facility] Last Admin: 04/09/18 21:53 Dose: 0.2 mg Dextrose (Dextrose 50% Inj) 0 ml IV STAT PRN; Protocol PRN Reason: Hypoglycemia Protocol Last Admin: 04/05/18 09:24 Dose: 50 ml Dextrose (Glutose 15) 0 gm PO ONCE PRN; Protocol PRN Reason: Hypoglycemia Protocol Dicyclomine HCl (Bentyl) 10 mg PO Q4 PRN PRN Reason: abdominal discomfort Last Admin: 04/02/18 15:45 Dose: 10 mg Duloxetine HCl (Cymbalta) 60 mg PO HS [facility] Last Admin: 04/09/18 21:53 Dose: 60 mg Ferrous Sulfate (Feosol) 325 mg PO QPM [facility] Last Admin: 04/09/18 21:54 Dose: 325 mg Gabapentin (Neurontin) 100 mg PO Q8 [facility] Last Admin: 04/10/18 08:36 Dose: 100 mg Glucagon (Glucagen Diagnostic Kit) 0 mg IM STAT PRN; Protocol PRN Reason: Hypoglycemia Protocol Ceftriaxone Sodium 1 gm/ (Sodium Chloride) 100 mls @ 100 mls/hr IVPB DAILY [facility] PRN Reason: Protocol Last Admin: 04/10/18 08:42 Dose: 100 mls/hr Insulin Detemir (Levemir) 14 units SC HS [facility] Insulin Human Lispro (Humalog) 0 units SC ACHS [facility] PRN Reason: Protocol Last Admin: 04/10/18 06:41 Dose: Not Given Insulin Human Lispro (Humalog) 8 units SC AC [facility] Last Admin: 04/10/18 08:34 Dose: Not Given Levetiracetam (Keppra) 500 mg PO Q12 [facility] Last Admin: 04/10/18 08:34 Dose: 500 mg Lisinopril (Zestril) 20 mg PO DAILY [facility] Last Admin: 04/08/18 10:03 Dose: Not Given Magnesium Hydroxide (Milk Of Magnesia) 30 ml PO Q72H PRN PRN Reason: Constipation Nitroglycerin (Nitro-Bid 2% Oint) 1 ea TOP 0400,1000,1600,2200 [facility] Last Admin: 04/10/18 03:36 Dose: 1 ea Pantoprazole Sodium (Protonix Ec Tab) 20 mg PO DAILY [facility] Last Admin: 04/10/18 08:36 Dose: 20 mg Polyethylene Glycol (Miralax) 17 gm PO DAILY [facility] Last Admin: 04/10/18 08:35 Dose: Not Given Pravastatin Sodium (Pravachol) 20 mg PO [facility] Last Admin: 04/09/18 21:53 Dose: 20 mg - Labs Labs: 04/10/18 05:40 04/10/18 05:40 PT 11.4 Seconds (9.8-13.1) 04/01/18 08:27 INR 1.0 (0.9-1.2) 04/01/18 08:27 APTT 33.6 Seconds (25.6-37.1) 04/01/18 08:27 - Head Exam Head Exam: NORMAL INSPECTION - Neck Exam Neck Exam: Normal Inspection - Respiratory Exam Respiratory Exam: Clear to Ausculation Bilateral, NORMAL BREATHING PATTERN - Cardiovascular Exam Cardiovascular Exam: REGULAR RHYTHM Assessment and Plan - Assessment and Plan (Free Text) Assessment: 62 yo male with anemia no pain no bleeding cardiac input appreciated
[2018-04-10] MEDS: Pravastatin Sodium 20 MG TAB PO SCH (21:21)
[2018-04-10] MEDS ORDERED: Insulin Detemir 100 Units/ml Inj SC SCH ×2 (22:00)
--- NOTE | 2018-04-10 22:20 | PN ---
Copied To: Mercy Trujillo MD Attending MD: Mercy Trujillo MD DATE: 04/10/2018 ENDO FOLLOWUP NOTE LOCATION: Room 413 SUBJECTIVE: This is a 62-year-old male with recent uncontrolled type 2 insulin-requiring diabetes, also with variability of his oral intake and is now being followed closely for metabolic management. His glycemic levels are fluctuating but improved as noted today and the glucose values have ranged from 199 to 378 and 394 mg/dL. LABORATORY DATA: His latest chemistry showed a BUN of 24, sodium 139, potassium 4, chloride 107, CO2 of 24, glucose 285, and creatinine 1.7. ASSESSMENT AND PLAN: So, at this time, we will modify once again his basal and bolus insulin regimen and increase the Humalog to 12 units subcu three times a day before meals to start tomorrow morning as ordered. We will titrate incrementally as indicated to optimize metabolic control. We will also titrate his basal insulin with Levemir to be increased to 16 units subcu at bedtime daily to start tonight. We will titrate incrementally as indicated to optimize metabolic control. We will obtain serial chemistries and supplement accordingly as needed. We will follow. Mercy Trujillo MD
[2018-04-11] MEDS: Nitroglycerin 2% Ointment Foilpak UD TOP SCH ×5 (05:00→21:46)
[2018-04-11] MEDS: Insulin Lispro (humaLOG) 100 Units/ml Inj SC SCH ×7 (06:35→21:47)
[2018-04-11] MEDS: Pantoprazole 20 mg EC Tab PO SCH (09:00)
[2018-04-11] MEDS: POLYETHYLENE GLYCOL 3350 17 GM/Dose PACKET PO SCH (09:01)
--- NOTE | 2018-04-11 11:42 | CP.PCM.PN ---
Subjective - Date & Time of Evaluation Date of Evaluation: 04/11/18 Time of Evaluation: 11:39 - Subjective Subjective: stable s/p LHCx showing 90% proximal LAD and 85% mid LAD , 85% proximal LCx stenosis Objective - Vital Signs/Intake and Output Vital Signs (last 24 hours): Temp Pulse Resp BP Pulse Ox 97.7 F 90 19 138/83 100 04/11/18 08:06 04/11/18 09:05 04/11/18 08:06 04/11/18 09:05 04/11/18 08:06 - Medications Medications: Current Medications Acetaminophen (Tylenol 325mg Tab) 650 mg PO Q6 PRN PRN Reason: Temp above 101 Last Admin: 04/08/18 02:49 Dose: 650 mg Acetaminophen (Tylenol 325mg Tab) 650 mg PO Q6 PRN PRN Reason: Pain, Mild (1-3) Last Admin: 04/09/18 23:22 Dose: 650 mg Al Hydrox/Mg Hydrox/Simethicone (Maalox Plus 30 Ml) 30 ml PO Q4 PRN PRN Reason: Indigestion / Heartburn Last Admin: 04/02/18 15:45 Dose: 30 ml Aspirin (Ecotrin) 81 mg PO DAILY [facility] Last Admin: 04/11/18 09:18 Dose: 81 mg Atorvastatin Calcium (Lipitor) 80 mg PO DAILY [facility] Carbidopa/Levodopa (Sinemet) 2 tab PO Q6 [facility] Last Admin: 04/11/18 09:00 Dose: 2 tab Carvedilol (Coreg) 25 mg PO Q12 [facility] Last Admin: 04/11/18 09:00 Dose: 25 mg Clopidogrel Bisulfate (Plavix) 75 mg PO DAILY [facility] Dextrose (Dextrose 50% Inj) 0 ml IV STAT PRN; Protocol PRN Reason: Hypoglycemia Protocol Last Admin: 04/05/18 09:24 Dose: 50 ml Dextrose (Glutose 15) 0 gm PO ONCE PRN; Protocol PRN Reason: Hypoglycemia Protocol Dicyclomine HCl (Bentyl) 10 mg PO Q4 PRN PRN Reason: abdominal discomfort Last Admin: 04/02/18 15:45 Dose: 10 mg Duloxetine HCl (Cymbalta) 60 mg PO HS [facility] Last Admin: 04/10/18 21:20 Dose: 60 mg Ferrous Sulfate (Feosol) 325 mg PO QPM [facility] Last Admin: 04/10/18 17:48 Dose: 325 mg Gabapentin (Neurontin) 100 mg PO Q8 [facility] Last Admin: 04/11/18 09:00 Dose: 100 mg Glucagon (Glucagen Diagnostic Kit) 0 mg IM STAT PRN; Protocol PRN Reason: Hypoglycemia Protocol Ceftriaxone Sodium 1 gm/ (Sodium Chloride) 100 mls @ 100 mls/hr IVPB DAILY [facility] PRN Reason: Protocol Last Admin: 04/11/18 08:59 Dose: 100 mls/hr Insulin Detemir (Levemir) 16 units SC HS [facility] Last Admin: 04/10/18 22:11 Dose: 16 units Insulin Human Lispro (Humalog) 0 units SC ACHS [facility] PRN Reason: Protocol Last Admin: 04/11/18 06:35 Dose: Not Given Insulin Human Lispro (Humalog) 12 units SC AC [facility] Last Admin: 04/11/18 09:01 Dose: 12 u Levetiracetam (Keppra) 500 mg PO Q12 [facility] Last Admin: 04/11/18 09:00 Dose: 500 mg Lisinopril (Zestril) 20 mg PO DAILY [facility] Last Admin: 04/08/18 10:03 Dose: Not Given Magnesium Hydroxide (Milk Of Magnesia) 30 ml PO Q72H PRN PRN Reason: Constipation Nitroglycerin (Nitro-Bid 2% Oint) 1 ea TOP 0400,1000,1600,2200 [facility] Last Admin: 04/11/18 09:05 Dose: 1 ea Pantoprazole Sodium (Protonix Ec Tab) 20 mg PO DAILY [facility] Last Admin: 04/11/18 09:00 Dose: 20 mg Polyethylene Glycol (Miralax) 17 gm PO DAILY [facility] Last Admin: 04/11/18 09:01 Dose: Not Given - Labs Labs: 04/10/18 05:40 04/10/18 05:40 PT 11.4 Seconds (9.8-13.1) 04/01/18 08:27 INR 1.0 (0.9-1.2) 04/01/18 08:27 APTT 33.6 Seconds (25.6-37.1) 04/01/18 08:27 - Constitutional Appears: Well - Head Exam Head Exam: ATRAUMATIC, NORMAL INSPECTION, NORMOCEPHALIC - Eye Exam Eye Exam: EOMI, Normal appearance, PERRL Pupil Exam: NORMAL ACCOMODATION, PERRL - ENT Exam ENT Exam: Mucous Membranes Moist, Normal Exam - Neck Exam Neck Exam: Full ROM, Normal Inspection. absent: Lymphadenopathy - Respiratory Exam Respiratory Exam: Clear to Ausculation Bilateral, NORMAL BREATHING PATTERN - Cardiovascular Exam Cardiovascular Exam: REGULAR RHYTHM, +S1, +S2. absent: Murmur - GI/Abdominal Exam GI & Abdominal Exam: Soft, Normal Bowel Sounds. absent: Tenderness - Extremities Exam Extremities Exam: Full ROM, Normal Capillary Refill, Normal Inspection. absent : Joint Swelling, Pedal Edema - Back Exam Back Exam: NORMAL INSPECTION - Neurological Exam Neurological Exam: Alert, Awake, CN II-XII Intact, Normal Gait, Oriented x3 - Psychiatric Exam Psychiatric exam: Normal Affect, Normal Mood - Skin Skin Exam: Dry, Intact, Normal Color, Warm Assessment and Plan (1) Chest pain Assessment & Plan: 2' to CAD cont DAPT cont coreg chg statins to lipitor add imdur plan for PCI on Saturday ( can schedule it as outpt for [place] as patient not consentable due to dementia/parkinsonism) Status: Acute (2) KANDI (acute kidney injury) Assessment & Plan: stable improving Status: Acute (3) UTI (urinary tract infection) Status: Acute (4) HTN (hypertension) Assessment & Plan: cont coreg and lisinopril dc clonidine add imdur Status: Chronic
--- NOTE | 2018-04-11 12:08 | CP.PCM.PN ---
Subjective - Date & Time of Evaluation Date of Evaluation: 04/11/18 Time of Evaluation: 12:07 - Subjective Subjective: patient awake not in distress No nausea no vomiting and vital sign noted to be stable Objective - Vital Signs/Intake and Output Vital Signs (last 24 hours): Temp Pulse Resp BP Pulse Ox 97.7 F 90 19 138/83 100 04/11/18 08:06 04/11/18 09:05 04/11/18 08:06 04/11/18 09:05 04/11/18 08:06 - Medications Medications: Current Medications Acetaminophen (Tylenol 325mg Tab) 650 mg PO Q6 PRN PRN Reason: Temp above 101 Last Admin: 04/08/18 02:49 Dose: 650 mg Acetaminophen (Tylenol 325mg Tab) 650 mg PO Q6 PRN PRN Reason: Pain, Mild (1-3) Last Admin: 04/09/18 23:22 Dose: 650 mg Al Hydrox/Mg Hydrox/Simethicone (Maalox Plus 30 Ml) 30 ml PO Q4 PRN PRN Reason: Indigestion / Heartburn Last Admin: 04/02/18 15:45 Dose: 30 ml Aspirin (Ecotrin) 81 mg PO DAILY [facility] Last Admin: 04/11/18 09:18 Dose: 81 mg Atorvastatin Calcium (Lipitor) 80 mg PO DAILY [facility] Last Admin: 04/11/18 11:53 Dose: 80 mg Carbidopa/Levodopa (Sinemet) 2 tab PO Q6 [facility] Last Admin: 04/11/18 09:00 Dose: 2 tab Carvedilol (Coreg) 25 mg PO Q12 [facility] Last Admin: 04/11/18 09:00 Dose: 25 mg Clopidogrel Bisulfate (Plavix) 75 mg PO DAILY [facility] Last Admin: 04/11/18 11:53 Dose: 75 mg Dextrose (Dextrose 50% Inj) 0 ml IV STAT PRN; Protocol PRN Reason: Hypoglycemia Protocol Last Admin: 04/05/18 09:24 Dose: 50 ml Dextrose (Glutose 15) 0 gm PO ONCE PRN; Protocol PRN Reason: Hypoglycemia Protocol Dicyclomine HCl (Bentyl) 10 mg PO Q4 PRN PRN Reason: abdominal discomfort Last Admin: 04/02/18 15:45 Dose: 10 mg Duloxetine HCl (Cymbalta) 60 mg PO HS [facility] Last Admin: 04/10/18 21:20 Dose: 60 mg Ferrous Sulfate (Feosol) 325 mg PO QPM [facility] Last Admin: 04/10/18 17:48 Dose: 325 mg Gabapentin (Neurontin) 100 mg PO Q8 [facility] Last Admin: 04/11/18 09:00 Dose: 100 mg Glucagon (Glucagen Diagnostic Kit) 0 mg IM STAT PRN; Protocol PRN Reason: Hypoglycemia Protocol Ceftriaxone Sodium 1 gm/ (Sodium Chloride) 100 mls @ 100 mls/hr IVPB DAILY [facility] PRN Reason: Protocol Last Admin: 04/11/18 08:59 Dose: 100 mls/hr Insulin Detemir (Levemir) 16 units SC HS [facility] Last Admin: 04/10/18 22:11 Dose: 16 units Insulin Human Lispro (Humalog) 0 units SC ACHS [facility] PRN Reason: Protocol Last Admin: 04/11/18 06:35 Dose: Not Given Insulin Human Lispro (Humalog) 12 units SC AC [facility] Last Admin: 04/11/18 09:01 Dose: 12 u Levetiracetam (Keppra) 500 mg PO Q12 [facility] Last Admin: 04/11/18 09:00 Dose: 500 mg Lisinopril (Zestril) 20 mg PO DAILY [facility] Last Admin: 04/08/18 10:03 Dose: Not Given Magnesium Hydroxide (Milk Of Magnesia) 30 ml PO Q72H PRN PRN Reason: Constipation Nitroglycerin (Nitro-Bid 2% Oint) 1 ea TOP 0400,1000,1600,2200 [facility] Last Admin: 04/11/18 09:05 Dose: 1 ea Pantoprazole Sodium (Protonix Ec Tab) 20 mg PO DAILY [facility] Last Admin: 04/11/18 09:00 Dose: 20 mg Polyethylene Glycol (Miralax) 17 gm PO DAILY [facility] Last Admin: 04/11/18 09:01 Dose: Not Given - Labs Labs: 04/10/18 05:40 04/10/18 05:40 PT 11.4 Seconds (9.8-13.1) 04/01/18 08:27 INR 1.0 (0.9-1.2) 04/01/18 08:27 APTT 33.6 Seconds (25.6-37.1) 04/01/18 08:27 - Constitutional Appears: No Acute Distress - ENT Exam ENT Exam: Mucous Membranes Moist - Neck Exam Neck Exam: absent: Lymphadenopathy - Respiratory Exam Respiratory Exam: NORMAL BREATHING PATTERN. absent: Chest Wall Tenderness - Cardiovascular Exam Cardiovascular Exam: absent: Gallop, JVD, Rubs - GI/Abdominal Exam GI & Abdominal Exam: Soft, Normal Bowel Sounds - Extremities Exam Extremities Exam: absent: Calf Tenderness - Back Exam Back Exam: absent: CVA tenderness (L), CVA tenderness (R) - Neurological Exam Neurological Exam: Altered - Psychiatric Exam Psychiatric exam: Normal Affect - Skin Skin Exam: absent: Cyanosis Assessment and Plan (1) KANDI (acute kidney injury) Assessment & Plan: Acute kidney injury showing some improvement. Status post cardiac cath with coronary artery disease as noted by the community organization director. Diabetes mellitus management per primary team History of dementia/Parkinson Status: Acute (2) Hyperglycemia Status: Acute (3) Parkinsons Status: Acute (4) Alzheimer disease Status: Chronic
--- NOTE | 2018-04-11 14:47 | CP.PCM.PN ---
Subjective - Date & Time of Evaluation Date of Evaluation: 04/11/18 Time of Evaluation: 12:00 - Subjective Subjective: F/u Chest pain. Pt S/P Cardiac Cath yesterday, c/o of Chest pain today. Objective - Vital Signs/Intake and Output Vital Signs (last 24 hours): Temp Pulse Resp BP Pulse Ox 98.1 F 65 17 95/57 L 96 04/11/18 13:30 04/11/18 13:30 04/11/18 13:30 04/11/18 13:30 04/11/18 13:30 - Medications Medications: Current Medications Acetaminophen (Tylenol 325mg Tab) 650 mg PO Q6 PRN PRN Reason: Temp above 101 Last Admin: 04/08/18 02:49 Dose: 650 mg Acetaminophen (Tylenol 325mg Tab) 650 mg PO Q6 PRN PRN Reason: Pain, Mild (1-3) Last Admin: 04/09/18 23:22 Dose: 650 mg Al Hydrox/Mg Hydrox/Simethicone (Maalox Plus 30 Ml) 30 ml PO Q4 PRN PRN Reason: Indigestion / Heartburn Last Admin: 04/02/18 15:45 Dose: 30 ml Aspirin (Ecotrin) 81 mg PO DAILY [facility] Last Admin: 04/11/18 09:18 Dose: 81 mg Atorvastatin Calcium (Lipitor) 80 mg PO DAILY [facility] Last Admin: 04/11/18 11:53 Dose: 80 mg Carbidopa/Levodopa (Sinemet) 2 tab PO Q6 [facility] Last Admin: 04/11/18 09:00 Dose: 2 tab Carvedilol (Coreg) 25 mg PO Q12 [facility] Last Admin: 04/11/18 09:00 Dose: 25 mg Clopidogrel Bisulfate (Plavix) 75 mg PO DAILY [facility] Last Admin: 04/11/18 11:53 Dose: 75 mg Dextrose (Dextrose 50% Inj) 0 ml IV STAT PRN; Protocol PRN Reason: Hypoglycemia Protocol Last Admin: 04/05/18 09:24 Dose: 50 ml Dextrose (Glutose 15) 0 gm PO ONCE PRN; Protocol PRN Reason: Hypoglycemia Protocol Dicyclomine HCl (Bentyl) 10 mg PO Q4 PRN PRN Reason: abdominal discomfort Last Admin: 04/02/18 15:45 Dose: 10 mg Duloxetine HCl (Cymbalta) 60 mg PO [facility] Last Admin: 04/10/18 21:20 Dose: 60 mg Ferrous Sulfate (Feosol) 325 mg PO QPM [facility] Last Admin: 04/10/18 17:48 Dose: 325 mg Gabapentin (Neurontin) 100 mg PO Q8 [facility] Last Admin: 04/11/18 09:00 Dose: 100 mg Glucagon (Glucagen Diagnostic Kit) 0 mg IM STAT PRN; Protocol PRN Reason: Hypoglycemia Protocol Ceftriaxone Sodium 1 gm/ (Sodium Chloride) 100 mls @ 100 mls/hr IVPB DAILY [facility] PRN Reason: Protocol Last Admin: 04/11/18 08:59 Dose: 100 mls/hr Insulin Detemir (Levemir) 20 units SC HS [facility] Insulin Human Lispro (Humalog) 0 units SC ACHS [facility] PRN Reason: Protocol Last Admin: 04/11/18 12:07 Dose: Not Given Insulin Human Lispro (Humalog) 14 units SC AC [facility] Levetiracetam (Keppra) 500 mg PO Q12 [facility] Last Admin: 04/11/18 09:00 Dose: 500 mg Lisinopril (Zestril) 20 mg PO DAILY [facility] Last Admin: 04/08/18 10:03 Dose: Not Given Magnesium Hydroxide (Milk Of Magnesia) 30 ml PO Q72H PRN PRN Reason: Constipation Nitroglycerin (Nitro-Bid 2% Oint) 1 ea TOP 0400,1000,1600,2200 [facility] Last Admin: 04/11/18 09:05 Dose: 1 ea Pantoprazole Sodium (Protonix Ec Tab) 20 mg PO DAILY [facility] Last Admin: 04/11/18 09:00 Dose: 20 mg Polyethylene Glycol (Miralax) 17 gm PO DAILY [facility] Last Admin: 04/11/18 09:01 Dose: Not Given - Labs Labs: 04/10/18 05:40 04/10/18 05:40 PT 11.4 Seconds (9.8-13.1) 04/01/18 08:27 INR 1.0 (0.9-1.2) 04/01/18 08:27 APTT 33.6 Seconds (25.6-37.1) 04/01/18 08:27 - Constitutional Appears: No Acute Distress, Chronically Ill - Head Exam Head Exam: NORMAL INSPECTION - Eye Exam Eye Exam: PERRL - ENT Exam ENT Exam: Normal Exam - Neck Exam Neck Exam: Normal Inspection - Respiratory Exam Respiratory Exam: Clear to Ausculation Bilateral - Cardiovascular Exam Cardiovascular Exam: REGULAR RHYTHM - GI/Abdominal Exam GI & Abdominal Exam: Soft, Normal Bowel Sounds - Extremities Exam Extremities Exam: Normal Inspection - Back Exam Back Exam: NORMAL INSPECTION - Neurological Exam Neurological Exam: Awake Additional comments: Answer simple questions at times with vague response, cogwheel rigidity, mild tremors upper extremities. - Psychiatric Exam Psychiatric exam: Anxious - Skin Skin Exam: Warm Assessment and Plan (1) Chest pain Status: Acute (2) Hyperglycemia Status: Acute (3) DM I (diabetes mellitus, type I) Status: Chronic (4) HTN (hypertension) Status: Chronic (5) Alzheimer disease Status: Chronic (6) Dementia Status: Chronic (7) Parkinsons Status: Acute (8) Seizure Status: Chronic (9) Anxiety Status: Acute (10) Depression Status: Chronic (11) UTI (urinary tract infection) Status: Acute (12) KANDI (acute kidney injury) Status: Acute (13) CKD (chronic kidney disease) Status: Acute - Assessment and Plan (Free Text) Plan: Continue Rocephin, NTG, ASA, Coreg, Plavix, lipitor, Humalog and rest of Tx. As per cardiology, plan for PCI on Saturday as [facility] at [facility]
[2018-04-11] MEDS ORDERED: Insulin Lispro (humaLOG) 100 Units/ml Inj SC SCH (16:30)
[2018-04-11] MEDS ORDERED: Insulin Detemir 100 Units/ml Inj SC SCH ×2 (22:00)
[2018-04-12] MEDS: Nitroglycerin 2% Ointment Foilpak UD TOP SCH ×4 (04:56→21:34)
[2018-04-12] MEDS: Insulin Lispro (humaLOG) 100 Units/ml Inj SC SCH ×7 (07:30→22:08)
[2018-04-12 07:40] LABS: CALCIUM 9.1 mg/dL (8.4-10.2)
[2018-04-12] MEDS: POLYETHYLENE GLYCOL 3350 17 GM/Dose PACKET PO SCH (09:25)
[2018-04-12] MEDS: Pantoprazole 20 mg EC Tab PO SCH (09:26)
--- NOTE | 2018-04-12 14:41 | CP.PCM.PN ---
Subjective - Date & Time of Evaluation Date of Evaluation: 04/12/18 Time of Evaluation: 10:00 - Subjective Subjective: F/U Chest pain. No A/D, no CP, no SOB. Objective - Vital Signs/Intake and Output Vital Signs (last 24 hours): Temp Pulse Resp BP Pulse Ox 98.5 F 76 18 149/82 97 04/12/18 12:12 04/12/18 12:12 04/12/18 12:12 04/12/18 12:12 04/12/18 12:12 - Medications Medications: Current Medications Acetaminophen (Tylenol 325mg Tab) 650 mg PO Q6 PRN PRN Reason: Temp above 101 Last Admin: 04/08/18 02:49 Dose: 650 mg Acetaminophen (Tylenol 325mg Tab) 650 mg PO Q6 PRN PRN Reason: Pain, Mild (1-3) Last Admin: 04/09/18 23:22 Dose: 650 mg Al Hydrox/Mg Hydrox/Simethicone (Maalox Plus 30 Ml) 30 ml PO Q4 PRN PRN Reason: Indigestion / Heartburn Last Admin: 04/02/18 15:45 Dose: 30 ml Aspirin (Ecotrin) 81 mg PO DAILY [facility] Last Admin: 04/12/18 09:22 Dose: 81 mg Atorvastatin Calcium (Lipitor) 80 mg PO DAILY [facility] Last Admin: 04/12/18 09:25 Dose: 80 mg Carbidopa/Levodopa (Sinemet) 2 tab PO Q6 [facility] Last Admin: 04/12/18 09:27 Dose: 2 tab Carvedilol (Coreg) 25 mg PO Q12 [facility] Last Admin: 04/12/18 09:21 Dose: 25 mg Clopidogrel Bisulfate (Plavix) 75 mg PO DAILY [facility] Last Admin: 04/12/18 09:27 Dose: 75 mg Dextrose (Dextrose 50% Inj) 0 ml IV STAT PRN; Protocol PRN Reason: Hypoglycemia Protocol Last Admin: 04/05/18 09:24 Dose: 50 ml Dextrose (Glutose 15) 0 gm PO ONCE PRN; Protocol PRN Reason: Hypoglycemia Protocol Dicyclomine HCl (Bentyl) 10 mg PO Q4 PRN PRN Reason: abdominal discomfort Last Admin: 04/12/18 11:50 Dose: 10 mg Duloxetine HCl (Cymbalta) 60 mg PO [facility] Last Admin: 04/11/18 21:44 Dose: 60 mg Ferrous Sulfate (Feosol) 325 mg PO QPM [facility] Last Admin: 04/11/18 17:55 Dose: 325 mg Gabapentin (Neurontin) 100 mg PO Q8 [facility] Last Admin: 04/12/18 09:26 Dose: 100 mg Glucagon (Glucagen Diagnostic Kit) 0 mg IM STAT PRN; Protocol PRN Reason: Hypoglycemia Protocol Ceftriaxone Sodium 1 gm/ (Sodium Chloride) 100 mls @ 100 mls/hr IVPB DAILY [facility] PRN Reason: Protocol Last Admin: 04/12/18 09:27 Dose: 100 mls/hr Insulin Detemir (Levemir) 24 units SC HS [facility] Insulin Human Lispro (Humalog) 0 units SC ACHS [facility] PRN Reason: Protocol Last Admin: 04/12/18 11:47 Dose: 6 unit Insulin Human Lispro (Humalog) 12 units SC AC [facility] Levetiracetam (Keppra) 500 mg PO Q12 [facility] Last Admin: 04/12/18 09:23 Dose: 500 mg Lisinopril (Zestril) 20 mg PO DAILY [facility] Last Admin: 04/08/18 10:03 Dose: Not Given Magnesium Hydroxide (Milk Of Magnesia) 30 ml PO Q72H PRN PRN Reason: Constipation Nitroglycerin (Nitro-Bid 2% Oint) 1 ea TOP 0400,1000,1600,2200 [facility] Last Admin: 04/12/18 09:26 Dose: 1 ea Pantoprazole Sodium (Protonix Ec Tab) 20 mg PO DAILY [facility] Last Admin: 04/12/18 09:26 Dose: 20 mg Polyethylene Glycol (Miralax) 17 gm PO DAILY [facility] Last Admin: 04/12/18 09:25 Dose: Not Given - Labs Labs: 04/10/18 05:40 04/12/18 06:20 PT 11.4 Seconds (9.8-13.1) 04/01/18 08:27 INR 1.0 (0.9-1.2) 04/01/18 08:27 APTT 33.6 Seconds (25.6-37.1) 04/01/18 08:27 - Constitutional Appears: No Acute Distress, Chronically Ill - Head Exam Head Exam: NORMAL INSPECTION - Eye Exam Eye Exam: PERRL - ENT Exam ENT Exam: Normal Oropharynx - Neck Exam Neck Exam: Normal Inspection - Respiratory Exam Respiratory Exam: Clear to Ausculation Bilateral - Cardiovascular Exam Cardiovascular Exam: REGULAR RHYTHM - GI/Abdominal Exam GI & Abdominal Exam: Soft, Normal Bowel Sounds - Extremities Exam Extremities Exam: Normal Inspection - Back Exam Back Exam: NORMAL INSPECTION - Neurological Exam Neurological Exam: Awake Additional comments: Answer simple questions, at times with vague response, cogwheel rigidity, mils tremors upper extremities. - Psychiatric Exam Psychiatric exam: Anxious - Skin Skin Exam: Warm Assessment and Plan (1) Chest pain Status: Acute (2) Hyperglycemia Status: Acute (3) DM I (diabetes mellitus, type I) Status: Chronic (4) HTN (hypertension) Status: Chronic (5) Alzheimer disease Status: Chronic (6) Dementia Status: Chronic (7) Parkinsons Status: Acute (8) Seizure Status: Chronic (9) Anxiety Status: Acute (10) Depression Status: Chronic (11) UTI (urinary tract infection) Status: Acute (12) KANDI (acute kidney injury) Status: Acute (13) CKD (chronic kidney disease) Status: Acute - Assessment and Plan (Free Text) Plan: Continue Zestril, Ecotrin, Coreg, Lipitor and rest of Tx.
--- NOTE | 2018-04-12 16:44 | PN ---
Copied To: Mercy Trujillo MD Attending MD: Mercy Trujillo MD DATE: 04/12/2018 ENDO FOLLOWUP LOCATION: In room 413. SUBJECTIVE: This is a 62-year-old male with recent uncontrolled type 2 insulin-requiring diabetes, now being followed closely for metabolic management. His glycemic levels are once again fluctuating with marked hyperglycemic accelerations as noted thereof. His glucose levels overnight have ranged from 366 to 402 and 421 mg/dL. His latest chemistry shows a BUN of 32, sodium 140, potassium 4.2, chloride 107, CO2 of 25, glucose 308, and creatinine 1.7. So at this time, we will modify once again his basal and bolus insulin regimen and increase the Humalog to 12 units subcu t.i.d. before meals to start at lunchtime today as ordered. We will titrate incrementally as indicated to optimize metabolic control. We will continue the low-dose correction scale using Humalog insulin as given. We will also increase the basal insulin given as Levemir at 24 units subcu at bedtime daily to start tonight. We will obtain serial chemistries and supplement accordingly as needed. We will follow. Mercy Trujillo MD
[2018-04-12] MEDS: Insulin Detemir 100 Units/ml Inj SC SCH (22:10)
[2018-04-13] MEDS: Alum-Mag Hydrox-Simethicone Susp (30 mL) PO PRN (02:26)
[2018-04-13] MEDS: Nitroglycerin 2% Ointment Foilpak UD TOP SCH ×4 (04:55→21:35)
[2018-04-13] MEDS: Insulin Lispro (humaLOG) 100 Units/ml Inj SC SCH ×7 (06:53→21:42)
[2018-04-13] MEDS: POLYETHYLENE GLYCOL 3350 17 GM/Dose PACKET PO SCH (08:56)
[2018-04-13] MEDS: Pantoprazole 20 mg EC Tab PO SCH (08:58)
--- NOTE | 2018-04-13 13:27 | CP.PCM.PN ---
Subjective - Date & Time of Evaluation Date of Evaluation: 04/13/18 Time of Evaluation: 13:24 - Subjective Subjective: no more chest pains Cr 1.7 plan for PCI tomorrow at [facility] Objective - Vital Signs/Intake and Output Vital Signs (last 24 hours): Temp Pulse Resp BP Pulse Ox 98.4 F 71 18 98/61 L 98 04/13/18 11:54 04/13/18 11:54 04/13/18 11:54 04/13/18 11:54 04/13/18 11:54 - Medications Medications: Current Medications Acetaminophen (Tylenol 325mg Tab) 650 mg PO Q6 PRN PRN Reason: Temp above 101 Last Admin: 04/08/18 02:49 Dose: 650 mg Acetaminophen (Tylenol 325mg Tab) 650 mg PO Q6 PRN PRN Reason: Pain, Mild (1-3) Last Admin: 04/09/18 23:22 Dose: 650 mg Al Hydrox/Mg Hydrox/Simethicone (Maalox Plus 30 Ml) 30 ml PO Q4 PRN PRN Reason: Indigestion / Heartburn Last Admin: 04/13/18 02:26 Dose: 30 ml Aspirin (Ecotrin) 81 mg PO DAILY [facility] Last Admin: 04/13/18 08:56 Dose: 81 mg Atorvastatin Calcium (Lipitor) 80 mg PO DAILY [facility] Last Admin: 04/13/18 08:57 Dose: 80 mg Carbidopa/Levodopa (Sinemet) 2 tab PO Q6 [facility] Last Admin: 04/13/18 09:05 Dose: 2 tab Carvedilol (Coreg) 25 mg PO Q12 [facility] Last Admin: 04/13/18 08:56 Dose: 25 mg Clopidogrel Bisulfate (Plavix) 75 mg PO DAILY [facility] Last Admin: 04/13/18 08:55 Dose: 75 mg Dextrose (Dextrose 50% Inj) 0 ml IV STAT PRN; Protocol PRN Reason: Hypoglycemia Protocol Last Admin: 04/05/18 09:24 Dose: 50 ml Dextrose (Glutose 15) 0 gm PO ONCE PRN; Protocol PRN Reason: Hypoglycemia Protocol Dicyclomine HCl (Bentyl) 10 mg PO Q4 PRN PRN Reason: abdominal discomfort Last Admin: 04/12/18 11:50 Dose: 10 mg Duloxetine HCl (Cymbalta) 60 mg PO [facility] Last Admin: 04/12/18 21:34 Dose: 60 mg Ferrous Sulfate (Feosol) 325 mg PO QPM [facility] Last Admin: 04/12/18 17:45 Dose: 325 mg Gabapentin (Neurontin) 100 mg PO Q8 [facility] Last Admin: 04/13/18 08:56 Dose: 100 mg Glucagon (Glucagen Diagnostic Kit) 0 mg IM STAT PRN; Protocol PRN Reason: Hypoglycemia Protocol Insulin Detemir (Levemir) 24 units SC HS [facility] Last Admin: 04/12/18 22:10 Dose: 24 u Insulin Human Lispro (Humalog) 0 units SC ACHS [facility] PRN Reason: Protocol Last Admin: 04/13/18 12:12 Dose: Not Given Insulin Human Lispro (Humalog) 12 units SC AC [facility] Last Admin: 04/13/18 12:34 Dose: 12 u Levetiracetam (Keppra) 500 mg PO Q12 [facility] Last Admin: 04/13/18 08:57 Dose: 500 mg Lisinopril (Zestril) 20 mg PO DAILY [facility] Last Admin: 04/08/18 10:03 Dose: Not Given Magnesium Hydroxide (Milk Of Magnesia) 30 ml PO Q72H PRN PRN Reason: Constipation Nitroglycerin (Nitro-Bid 2% Oint) 1 ea TOP 0400,1000,1600,2200 [facility] Last Admin: 04/13/18 09:05 Dose: 1 ea Pantoprazole Sodium (Protonix Ec Tab) 20 mg PO DAILY [facility] Last Admin: 04/13/18 08:58 Dose: 20 mg Polyethylene Glycol (Miralax) 17 gm PO DAILY [facility] Last Admin: 04/13/18 08:56 Dose: 17 gm - Labs Labs: 04/10/18 05:40 04/12/18 06:20 PT 11.4 Seconds (9.8-13.1) 04/01/18 08:27 INR 1.0 (0.9-1.2) 04/01/18 08:27 APTT 33.6 Seconds (25.6-37.1) 04/01/18 08:27 - Constitutional Appears: Well - Head Exam Head Exam: ATRAUMATIC, NORMAL INSPECTION, NORMOCEPHALIC - Eye Exam Eye Exam: EOMI, Normal appearance, PERRL Pupil Exam: NORMAL ACCOMODATION, PERRL - ENT Exam ENT Exam: Mucous Membranes Moist, Normal Exam - Neck Exam Neck Exam: Full ROM, Normal Inspection. absent: Lymphadenopathy - Respiratory Exam Respiratory Exam: Clear to Ausculation Bilateral, NORMAL BREATHING PATTERN - Cardiovascular Exam Cardiovascular Exam: REGULAR RHYTHM, +S1, +S2. absent: Murmur - GI/Abdominal Exam GI & Abdominal Exam: Soft, Normal Bowel Sounds. absent: Tenderness - Extremities Exam Extremities Exam: Full ROM, Normal Capillary Refill, Normal Inspection. absent : Joint Swelling, Pedal Edema - Back Exam Back Exam: NORMAL INSPECTION - Neurological Exam Neurological Exam: Alert, Awake, CN II-XII Intact, Oriented x3 - Psychiatric Exam Psychiatric exam: Flat Affect, Normal Mood - Skin Skin Exam: Dry, Intact, Normal Color, Warm Assessment and Plan (1) Chest pain Assessment & Plan: 2' to CAD anginal sx plan for PCI of LAD/LCx tomorrow at [facility] cont DAPT cont bb cont statins NPO p MN Status: Acute (2) KANDI (acute kidney injury) Assessment & Plan: Cr stable at 1.7 Status: Acute (3) UTI (urinary tract infection) Status: Acute (4) HTN (hypertension) Status: Chronic
--- NOTE | 2018-04-13 14:06 | CP.PCM.PN ---
Subjective - Date & Time of Evaluation Date of Evaluation: 04/13/18 Time of Evaluation: 12:20 - Subjective Subjective: F/U CP. Objective - Vital Signs/Intake and Output Vital Signs (last 24 hours): Temp Pulse Resp BP Pulse Ox 98.4 F 71 18 98/61 L 98 04/13/18 11:54 04/13/18 11:54 04/13/18 11:54 04/13/18 11:54 04/13/18 11:54 - Medications Medications: Current Medications Acetaminophen (Tylenol 325mg Tab) 650 mg PO Q6 PRN PRN Reason: Temp above 101 Last Admin: 04/08/18 02:49 Dose: 650 mg Acetaminophen (Tylenol 325mg Tab) 650 mg PO Q6 PRN PRN Reason: Pain, Mild (1-3) Last Admin: 04/09/18 23:22 Dose: 650 mg Al Hydrox/Mg Hydrox/Simethicone (Maalox Plus 30 Ml) 30 ml PO Q4 PRN PRN Reason: Indigestion / Heartburn Last Admin: 04/13/18 02:26 Dose: 30 ml Aspirin (Ecotrin) 81 mg PO DAILY [facility] Last Admin: 04/13/18 08:56 Dose: 81 mg Atorvastatin Calcium (Lipitor) 80 mg PO DAILY [facility] Last Admin: 04/13/18 08:57 Dose: 80 mg Carbidopa/Levodopa (Sinemet) 2 tab PO Q6 [facility] Last Admin: 04/13/18 09:05 Dose: 2 tab Carvedilol (Coreg) 25 mg PO Q12 [facility] Last Admin: 04/13/18 08:56 Dose: 25 mg Clopidogrel Bisulfate (Plavix) 75 mg PO DAILY [facility] Last Admin: 04/13/18 08:55 Dose: 75 mg Dextrose (Dextrose 50% Inj) 0 ml IV STAT PRN; Protocol PRN Reason: Hypoglycemia Protocol Last Admin: 04/05/18 09:24 Dose: 50 ml Dextrose (Glutose 15) 0 gm PO ONCE PRN; Protocol PRN Reason: Hypoglycemia Protocol Dicyclomine HCl (Bentyl) 10 mg PO Q4 PRN PRN Reason: abdominal discomfort Last Admin: 04/12/18 11:50 Dose: 10 mg Duloxetine HCl (Cymbalta) 60 mg PO [facility] Last Admin: 04/12/18 21:34 Dose: 60 mg Ferrous Sulfate (Feosol) 325 mg PO QPM [facility] Last Admin: 04/12/18 17:45 Dose: 325 mg Gabapentin (Neurontin) 100 mg PO Q8 [facility] Last Admin: 04/13/18 08:56 Dose: 100 mg Glucagon (Glucagen Diagnostic Kit) 0 mg IM STAT PRN; Protocol PRN Reason: Hypoglycemia Protocol Insulin Detemir (Levemir) 24 units SC HS [facility] Last Admin: 04/12/18 22:10 Dose: 24 u Insulin Human Lispro (Humalog) 0 units SC ACHS [facility] PRN Reason: Protocol Last Admin: 04/13/18 12:12 Dose: Not Given Insulin Human Lispro (Humalog) 12 units SC AC [facility] Last Admin: 04/13/18 12:34 Dose: 12 u Levetiracetam (Keppra) 500 mg PO Q12 [facility] Last Admin: 04/13/18 08:57 Dose: 500 mg Lisinopril (Zestril) 20 mg PO DAILY [facility] Last Admin: 04/08/18 10:03 Dose: Not Given Magnesium Hydroxide (Milk Of Magnesia) 30 ml PO Q72H PRN PRN Reason: Constipation Nitroglycerin (Nitro-Bid 2% Oint) 1 ea TOP 0400,1000,1600,2200 [facility] Last Admin: 04/13/18 09:05 Dose: 1 ea Pantoprazole Sodium (Protonix Ec Tab) 20 mg PO DAILY [facility] Last Admin: 04/13/18 08:58 Dose: 20 mg Polyethylene Glycol (Miralax) 17 gm PO DAILY [facility] Last Admin: 04/13/18 08:56 Dose: 17 gm - Labs Labs: 04/10/18 05:40 04/12/18 06:20 PT 11.4 Seconds (9.8-13.1) 04/01/18 08:27 INR 1.0 (0.9-1.2) 04/01/18 08:27 APTT 33.6 Seconds (25.6-37.1) 04/01/18 08:27 - Constitutional Appears: No Acute Distress, Chronically Ill - Head Exam Head Exam: NORMAL INSPECTION - Eye Exam Eye Exam: PERRL - ENT Exam ENT Exam: Normal Exam - Neck Exam Neck Exam: Normal Inspection - Respiratory Exam Respiratory Exam: Clear to Ausculation Bilateral - Cardiovascular Exam Cardiovascular Exam: REGULAR RHYTHM - GI/Abdominal Exam GI & Abdominal Exam: Soft, Normal Bowel Sounds - Extremities Exam Extremities Exam: Normal Inspection - Back Exam Back Exam: NORMAL INSPECTION - Neurological Exam Neurological Exam: Awake, Oriented x3 Additional comments: Answer simple questions, at times with vague response, cogwheel rigidity, mid tremors U/E - Psychiatric Exam Psychiatric exam: Anxious - Skin Skin Exam: Warm Assessment and Plan (1) Chest pain Status: Acute (2) Hyperglycemia Status: Acute (3) DM I (diabetes mellitus, type I) Status: Chronic (4) HTN (hypertension) Status: Chronic (5) Alzheimer disease Status: Chronic (6) Dementia Status: Chronic (7) Parkinsons Status: Acute (8) Seizure Status: Chronic (9) Anxiety Status: Acute (10) Depression Status: Chronic (11) UTI (urinary tract infection) Status: Acute (12) KANDI (acute kidney injury) Status: Acute (13) CKD (chronic kidney disease) Status: Acute
[2018-04-13] MEDS: Insulin Detemir 100 Units/ml Inj SC SCH (21:39)
[2018-04-14] MEDS: Nitroglycerin 2% Ointment Foilpak UD TOP SCH (03:43)
--- NOTE | 2018-04-14 04:33 | PN ---
Copied To: Mercy Trujillo MD Attending MD: Mercy Trujillo MD DATE: 04/13/2018 LOCATION: Room 413. SUBJECTIVE: This is a 62-year-old male with recent uncontrolled type 2 insulin-requiring diabetes, now being followed closely for metabolic management. Hyperglycemic levels have persisted all day today with glucose values ranging from 366-413 mg/dL. His latest glucose, however, tonight have improved and have ranged from 107-272 mg/dL. His latest chemistry showed a BUN of 32, sodium 140, potassium 4.2, chloride 107, CO2 of 25, glucose 308 and creatinine 1.7. At this time, we will continue the same basal and bolus insulin regimen to allow for dose equilibration and keep him on the Humalog given as 12 units subcu t.i.d. before meals as ordered. We will also continue the Levemir given as 24 units subcu at bedtime daily as given. We will titrate incrementally as indicated to optimize metabolic control. We will follow and advise accordingly. Mercy Trujillo MD
[2018-04-14] MEDS: Insulin Lispro (humaLOG) 100 Units/ml Inj SC SCH (06:56)
[2018-04-14 08:48] VITALS: BP 158/91; PULSE 72; RESP 18; TEMP 98.2; O2SAT 100
--- NOTE | 2018-04-14 09:53 | CP.PCM.PN ---
Subjective - Date & Time of Evaluation Date of Evaluation: 04/14/18 Time of Evaluation: 08:00 - Subjective Subjective: patient reported no new event Patient is going for cardiac stenting apparently Acute kidney injury showing some improvement. 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 Diabetes mellitus management per primary team History of dementia/Parkinson Objective - Vital Signs/Intake and Output Vital Signs (last 24 hours): Temp Pulse Resp BP Pulse Ox 98.2 F 72 18 158/91 H 100 04/14/18 05:00 04/14/18 05:00 04/14/18 05:00 04/14/18 05:00 04/14/18 05:00 - Medications Medications: Current Medications Acetaminophen (Tylenol 325mg Tab) 650 mg PO Q6 PRN PRN Reason: Temp above 101 Last Admin: 04/08/18 02:49 Dose: 650 mg Acetaminophen (Tylenol 325mg Tab) 650 mg PO Q6 PRN PRN Reason: Pain, Mild (1-3) Last Admin: 04/09/18 23:22 Dose: 650 mg Al Hydrox/Mg Hydrox/Simethicone (Maalox Plus 30 Ml) 30 ml PO Q4 PRN PRN Reason: Indigestion / Heartburn Last Admin: 04/13/18 02:26 Dose: 30 ml Aspirin (Ecotrin) 81 mg PO DAILY [facility] Last Admin: 04/13/18 08:56 Dose: 81 mg Atorvastatin Calcium (Lipitor) 80 mg PO DAILY [facility] Last Admin: 04/13/18 08:57 Dose: 80 mg Carbidopa/Levodopa (Sinemet) 2 tab PO Q6 [facility] Last Admin: 04/14/18 03:43 Dose: 2 tab Carvedilol (Coreg) 25 mg PO Q12 [facility] Last Admin: 04/13/18 21:34 Dose: 25 mg Clopidogrel Bisulfate (Plavix) 75 mg PO DAILY [facility] Last Admin: 04/13/18 08:55 Dose: 75 mg Dextrose (Dextrose 50% Inj) 0 ml IV STAT PRN; Protocol PRN Reason: Hypoglycemia Protocol Last Admin: 04/05/18 09:24 Dose: 50 ml Dextrose (Glutose 15) 0 gm PO ONCE PRN; Protocol PRN Reason: Hypoglycemia Protocol Dicyclomine HCl (Bentyl) 10 mg PO Q4 PRN PRN Reason: abdominal discomfort Last Admin: 04/12/18 11:50 Dose: 10 mg Duloxetine HCl (Cymbalta) 60 mg PO HS [facility] Last Admin: 04/13/18 21:35 Dose: 60 mg Ferrous Sulfate (Feosol) 325 mg PO QPM [facility] Last Admin: 04/13/18 17:15 Dose: 325 mg Gabapentin (Neurontin) 100 mg PO Q8 [facility] Last Admin: 04/14/18 00:36 Dose: 100 mg Glucagon (Glucagen Diagnostic Kit) 0 mg IM STAT PRN; Protocol PRN Reason: Hypoglycemia Protocol Insulin Detemir (Levemir) 24 units SC HS [facility] Last Admin: 04/13/18 21:39 Dose: 24 u Insulin Human Lispro (Humalog) 0 units SC ACHS [facility] PRN Reason: Protocol Last Admin: 04/14/18 06:56 Dose: Not Given Insulin Human Lispro (Humalog) 12 units SC AC [facility] Last Admin: 04/13/18 17:05 Dose: Not Given Levetiracetam (Keppra) 500 mg PO Q12 [facility] Last Admin: 04/13/18 21:35 Dose: 500 mg Lisinopril (Zestril) 20 mg PO DAILY [facility] Last Admin: 04/08/18 10:03 Dose: Not Given Magnesium Hydroxide (Milk Of Magnesia) 30 ml PO Q72H PRN PRN Reason: Constipation Nitroglycerin (Nitro-Bid 2% Oint) 1 ea TOP 0400,1000,1600,2200 [facility] Last Admin: 04/14/18 03:43 Dose: 1 ea Pantoprazole Sodium (Protonix Ec Tab) 20 mg PO DAILY [facility] Last Admin: 04/13/18 08:58 Dose: 20 mg Polyethylene Glycol (Miralax) 17 gm PO DAILY [facility] Last Admin: 04/13/18 08:56 Dose: 17 gm - Labs Labs: 04/10/18 05:40 04/12/18 06:20 PT 11.4 Seconds (9.8-13.1) 04/01/18 08:27 INR 1.0 (0.9-1.2) 04/01/18 08:27 APTT 33.6 Seconds (25.6-37.1) 04/01/18 08:27 Assessment and Plan (1) KANDI (acute kidney injury) Status: Acute (2) Hyperglycemia Status: Acute (3) Parkinsons Status: Acute (4) Alzheimer disease Status: Chronic
--- NOTE | 2018-04-14 18:42 | PN ---
Copied To: Mercy Trujillo MD Attending MD: eMrcy Trujillo MD DATE: 04/14/2018 ENDO FOLLOWUP NOTE. LOCATION: Room 413. SUBJECTIVE: This is a 62-year-old male with recent uncontrolled type 2 insulin-requiring diabetes, now being followed closely for metabolic management. His glycemic levels are fluctuating but improved and have ranged from 106 to 272 mg/dL today as noted. ASSESSMENT AND PLAN: So, at this time, we will modify his basal and bolus insulin regimen to allow for both equilibration and keeping on the Levemir, which will be switched over to Lantus upon discharge since we do not carry Lantus in the hospital and keep him on the Levemir or Lantus 24 units subcu at bedtime daily as given. We will continue also the Humalog given as 12 units subcu t.i.d. before meals as ordered. He will follow with his medical doctor and if his suboptimal meal portions continue, then we will lower once again his basal and bolus insulin regimen to adapt to his overall intake thereof. He is scheduled for discharge today as noted. Mercy Trujillo MD
--- NOTE | 2018-04-17 08:53 | PQF ---
PROVIDER RESPONSE TEXT: Ckd stage 3 REVIEWER QUERY TEXT: Kidney Disease, Chronic CKD Stage Please clarify the stage of CKD. History of Chronic Renal Failure is documented in the Medical Record. Renal consult: Appears to have acute kidney injury superimposed on chronic kidney disease. His baseli ne serum creatinine around 1.7. Chronic Kidney Disease (CKD) is documented in the Medical Record. Please specify the disease stage ( includes probable or suspected) Such as: -- Chronic kidney disease Stage 1 -- Chronic kidney disease Stage 2 -- Chronic kidney disease Stage 3 -- Chronic kidney disease Stage 4 -- Chronic kidney disease Stage 5 -- Chronic kidney disease Stage 5, requiring dialysis -- End Stage Renal Disease -- Other, please specify Stages are defined by the [employer] as follows: CKD Stage I GFR >= 90 ml / min per 1.73 m2 and persistent albuminuria CKD Stage 2 GFR between 60 and 89 with persistent albuminuria CKD Stage 3 GFR between 30 and 59 CKD Stage 4 GFR between 15 and 29 CKD Stage 5 GFR between <15 or End Stage Renal Disease The patient's Clinical Indicators include: BUN 20, 19, 29 CREATININE: 1.7, 1.7, 2.3 GFR 41, 41, 29 Query created by: Kamilla Kelly on 04/14/2018 8:01 AM Electronically signed by: Chepe Pope MD 04/17/2018 8:50 AM
--- NOTE | 2018-04-17 13:14 | CP.PCM.DIS ---
Provider - Provider Date of Admission: 04/02/18 12:01 Attending physician: Sharif Bond MD Primary care physician: Sharif Bond MD Consults: Cardiology, Endocrinology, Gastroenterology, Nephrology and Neurology. Time Spent in preparation of Discharge (in minutes): 35 Diagnosis - Discharge Diagnosis (1) Chest pain Status: Acute Priority: High (2) Hyperglycemia Status: Acute Priority: High (3) DM I (diabetes mellitus, type I) Status: Chronic Priority: High (4) HTN (hypertension) Status: Chronic Priority: High (5) Alzheimer disease Status: Chronic Priority: High (6) Dementia Status: Chronic Priority: Medium (7) Parkinsons Status: Acute (8) Seizure Status: Chronic (9) Anxiety Status: Acute Priority: Medium (10) Depression Status: Chronic Priority: High (11) UTI (urinary tract infection) Status: Acute (12) KANDI (acute kidney injury) Status: Acute (13) CKD (chronic kidney disease) Status: Acute Hospital Course - Lab Results Lab Results: Micro Results 04/01/18 15:13 Urine,Clean Catch Urine Culture - Final Escherichia Coli Most Recent Lab Values WBC 3.2 K/uL (4.8-10.8) L 04/10/18 05:40 RBC 3.11 Mil/uL (4.40-5.90) L 04/10/18 05:40 Hgb 9.5 g/dL (12.0-18.0) L 04/10/18 05:40 Hct 29.3 % (35.0-51.0) L 04/10/18 05:40 MCV 94.4 fl (80.0-94.0) H 04/10/18 05:40 MCH 30.6 pg (27.0-31.0) 04/10/18 05:40 MCHC 32.4 g/dL (33.0-37.0) L 04/10/18 05:40 RDW 15.3 % (11.5-14.5) H 04/10/18 05:40 Plt Count 117 K/uL (130-400) L 04/10/18 05:40 MPV 10.4 fl (7.2-11.7) 03/31/18 18:05 Neut % (Auto) 78.2 % (50.0-75.0) H 03/31/18 18:05 Lymph % (Auto) 11.6 % (20.0-40.0) L 03/31/18 18:05 Allen % (Auto) 7.7 % (0.0-10.0) 03/31/18 18:05 Eos % (Auto) 2.2 % (0.0-4.0) 03/31/18 18:05 Baso % (Auto) 0.3 % (0.0-2.0) 03/31/18 18:05 Neut # (Auto) 3.4 K/uL (1.8-7.0) 03/31/18 18:05 Lymph # (Auto) 0.5 K/uL (1.0-4.3) L 03/31/18 18:05 Allen # (Auto) 0.3 K/uL (0.0-0.8) 03/31/18 18:05 Eos # (Auto) 0.1 K/uL (0.0-0.7) 03/31/18 18:05 Baso # (Auto) 0.0 K/uL (0.0-0.2) 03/31/18 18:05 PT 11.4 Seconds (9.8-13.1) 04/01/18 08:27 INR 1.0 (0.9-1.2) 04/01/18 08:27 APTT 33.6 Seconds (25.6-37.1) 04/01/18 08:27 D-Dimer, Quantitative 299 ng/mlDDU (0-230) H 04/02/18 13:20 pCO2 40 mm/Hg (35-45) 04/02/18 13:23 pO2 152 mm/Hg (80-100) H 04/02/18 13:23 HCO3 24.9 mmol/L (21-28) 04/02/18 13:23 ABG pH 7.40 (7.35-7.45) 04/02/18 13:23 ABG Total CO2 26.0 mmol/L (22-28) 04/02/18 13:23 ABG O2 Saturation 99.5 % (95-98) H 04/02/18 13:23 ABG O2 Content 17.9 ML/dL (15-23) 04/02/18 13:23 ABG Base Excess 0 mmol/L (-2.0-3.0) 04/02/18 13:23 ABG Hemoglobin 13.1 g/dL (11.7-17.4) 04/02/18 13:23 ABG Carboxyhemoglobin 1.6 % (0.5-1.5) H 04/02/18 13:23 POC ABG HHb (Measured) 0.5 % (0.0-5.0) 04/02/18 13:23 ABG Methemoglobin 2.3 % (0.0-3.0) 04/02/18 13:23 ABG O2 Capacity 18.0 mL/dL (16-24) 04/02/18 13:23 [place]andon Test Yes 04/02/18 13:23 A-a O2 Difference 26.0 mm/Hg 04/02/18 13:23 Hgb O2 Saturation 95.6 % (95.0-98.0) 04/02/18 13:23 FiO2 32.0 % 04/02/18 13:23 Sodium 140 mmol/l (132-148) 04/12/18 06:20 Potassium 4.2 MMOL/L (3.6-5.0) 04/12/18 06:20 Chloride 107 mmol/L (98-107) 04/12/18 06:20 Carbon Dioxide 25 mmol/L (22-30) 04/12/18 06:20 Anion Gap 12 (10-20) 04/12/18 06:20 BUN 32 mg/dl (9-20) H 04/12/18 06:20 Creatinine 1.7 mg/dl (0.8-1.5) H 04/12/18 06:20 Est GFR ( Amer) 50 04/12/18 06:20 Est GFR (Non-Af Amer) 41 04/12/18 06:20 POC Glucose (mg/dL) 272 mg/dL (65-110) H 04/13/18 21:38 Random Glucose 308 mg/dL (75-110) H 04/12/18 06:20 Hemoglobin A1c 8.0 % (4.2-6.5) H 04/01/18 08:27 Calcium 9.1 mg/dL (8.4-10.2) 04/12/18 06:20 Phosphorus 2.8 mg/dl (2.5-4.5) 04/08/18 04:20 Magnesium 2.1 MG/DL (1.6-2.3) 04/08/18 04:20 Total Bilirubin 0.5 mg/dl (0.2-1.3) 04/09/18 09:40 AST 19 U/L (17-59) 04/09/18 09:40 ALT 13 U/L (21-72) L D 04/09/18 09:40 Alkaline Phosphatase 74 U/L (38-126) 04/09/18 09:40 Troponin I 0.0300 ng/mL (0.00-0.120) 04/03/18 21:05 Total Protein 5.8 G/DL (6.3-8.2) L 04/09/18 09:40 Albumin 2.9 g/dL (3.5-5.0) L 04/09/18 09:40 Globulin 2.9 gm/dL (2.2-3.9) 04/09/18 09:40 Albumin/Globulin Ratio 1.0 (1.0-2.1) 04/09/18 09:40 Triglycerides 100 mg/DL (0-149) D 04/01/18 08:27 Cholesterol 149 mg/dL (0-199) 04/01/18 08:27 LDL Cholesterol Direct 66 mg/dL (0-129) 04/01/18 08:27 HDL Cholesterol 44 MG/DL (30-70) 04/01/18 08:27 TSH 3rd Generation 2.51 mIU/ML (0.46-4.68) 04/08/18 04:20 Urine Color Yellow (YELLOW) 04/01/18 15:13 Urine Clarity Cloudy (Clear) 04/01/18 15:13 Urine pH 7.0 (5.0-8.0) 04/01/18 15:13 Ur Specific [place] 1.011 (1.003-1.030) 04/01/18 15:13 Urine Protein >=500 mg/dL (NEGATIVE) 04/01/18 15:13 Urine Glucose (UA) >=500 mg/dL (Normal) 04/01/18 15:13 Urine Ketones Negative mg/dL (NEGATIVE) 04/01/18 15:13 Urine Blood Small (NEGATIVE) 04/01/18 15:13 Urine Nitrate Negative (NEGATIVE) 04/01/18 15:13 Urine Bilirubin Negative (NEGATIVE) 04/01/18 15:13 Urine Urobilinogen 0.2-1.0 mg/dL (0.2-1.0) 04/01/18 15:13 Ur Leukocyte Esterase Mod Doreen/uL (Negative) 04/01/18 15:13 Urine RBC (Auto) 7 /hpf (0-3) H 04/01/18 15:13 Urine Microscopic WBC 64 /hpf (0-5) H 04/01/18 15:13 Ur Squamous Epith Cells 2 /hpf (0-5) 04/01/18 15:13 Urine Bacteria Mod (<OCC) H 04/01/18 15:13 Hyaline Casts 3-5 /hpf (0-2) H 04/01/18 15:13 Ur Random Sodium 81 meq/L 04/08/18 19:30 Ur Random Potassium 20.0 mmol/L 04/08/18 19:30 - Date & Time of H&P Date of H&P: 04/02/18 Time of H&P: 13:50 Discharge Exam - Head Exam Head Exam: NORMAL INSPECTION - Eye Exam Eye Exam: PERRL - ENT Exam ENT Exam: Normal Exam - Neck Exam Neck exam: Normal Inspection - Respiratory Exam Respiratory Exam: NORMAL BREATHING PATTERN - Cardiovascular Exam Cardiovascular Exam: REGULAR RHYTHM - GI/Abdominal Exam GI & Abdominal Exam: Normal Bowel Sounds, Soft - Extremities Exam Extremities exam: normal inspection - Back Exam Back exam: NORMAL INSPECTION - Neurological Exam Neurological exam: Oriented x3 Additional comments: Answers simple questions, at times with vague response, cogwheel rigidity, mild tremors U/E. - Psychiatric Exam Psychiatric exam: Anxious - Skin Skin Exam: Warm Discharge Plan - Follow Up Plan Condition: STABLE Disposition: HOME/ ROUTINE Patient education suggested?: Yes Additional Instructions: Follow up with PMD in one week. Referrals: Sharif Bond MD [Primary Care Provider] -
== END 2018-04-14 12:02 | disposition home or self-care (01) | DRG 287 ==
LOC: H.ER 16:07 → SUPCPDRO 16:07 → H.ERHOLD 19:48 → H.TEL 04-01 18:26 → OBSVTOIN 04-02 12:01
PROVIDERS: ADMIT Internal Medicine Pulmonary Disease; ATTEND Internal Medicine Pulmonary Disease
PROC: 4A023N7 Measurement of Cardiac Sampling and Pressure, Left Heart, Percutaneous Approach (ICD-10-PCS; principal; 2018-04-10)
PROC: B206YZZ Plain Radiography of Right and Left Heart using Other Contrast (ICD-10-PCS; 2018-04-10)
DX: I25.119 Atherosclerotic heart disease of native coronary artery with unspecified angina pectoris (principal); N39.0 Urinary tract infection, site not specified; N17.9 Acute kidney failure, unspecified; E11.649 Type 2 diabetes mellitus with hypoglycemia without coma; B96.20 Unspecified Escherichia coli [E. coli] as the cause of diseases classified elsewhere; I12.9 Hypertensive chronic kidney disease with stage 1 through stage 4 chronic kidney disease, or unspecified chronic kidney disease; N18.3 Chronic kidney disease, stage 3 (moderate); E11.22 Type 2 diabetes mellitus with diabetic chronic kidney disease; E11.65 Type 2 diabetes mellitus with hyperglycemia; E11.21 Type 2 diabetes mellitus with diabetic nephropathy; E11.42 Type 2 diabetes mellitus with diabetic polyneuropathy; E11.51 Type 2 diabetes mellitus with diabetic peripheral angiopathy without gangrene; E11.319 Type 2 diabetes mellitus with unspecified diabetic retinopathy without macular edema; R56.9 Unspecified convulsions; F02.80 Dementia in other diseases classified elsewhere, unspecified severity, without behavioral disturbance, psychotic disturbance, mood disturbance, and anxiety; G30.9 Alzheimer's disease, unspecified; G20 Parkinson's disease; K21.9 Gastro-esophageal reflux disease without esophagitis; F41.9 Anxiety disorder, unspecified; E78.5 Hyperlipidemia, unspecified; E78.00 Pure hypercholesterolemia, unspecified; D64.9 Anemia, unspecified; J45.909 Unspecified asthma, uncomplicated; F32.9 Major depressive disorder, single episode, unspecified; Z53.8 Procedure and treatment not carried out for other reasons; Z79.4 Long term (current) use of insulin; Z87.891 Personal history of nicotine dependence